=== PATIENT | female | born 1940 | race Caucasian/White ===

== ENCOUNTER 2016-08-01 17:17 | Inpatient (IN) | payer MEDICARE ==
[~2016-08-01] VITALS: Ht 157.5 cm; Wt 76.6 kg
--- NOTE | ~2016-08-01 | HEMODYNAMI ---
PATIENT:ADRIANA MARCELINO MEDICAL RECORD: [id number] : 38 LOCATION:[facility] [address] [facility]# [id number] ADMISSION DATE: 08/02/16 Generatedon:08/03/201615:30 Patient name: ADRIANA MARCELINO Patient #: [id number] : 1940 Date of study: 08/03/2016 Page: Of Hemodynamic Procedure Report Patient Data Patient Demographics Procedure consent was obtained First Name: ADRIANA Gender: Female Last Name: CHARI : 1940 [facility] Initial: J Age: 76 year(s) Patient #: [id number] Race: SSN: [id number] Additional ID: [id number] Contact details [address]: [address] [place] [address] [address] State: [place] City: [place] Zip code: [address] Past Medical History Allergies Allergen Reaction Date Comments Reported Other allergy 07/31/2015 NSAIDS, Sulfa, Celebrex, Versed Other allergy 08/03/2016 Furosemide, NSAIDS, Sulfa, Celebrex, Versed Admission Admission Data Admission Date: 08/02/2016 Admission Time: 14:24 Arrival Date: 08/03/2016 Arrival Time: 14:24 Admit Source: Other Insurance Payor: Medicare Room #: D.2121 Weight (lbs.): 176.37 Weight (kg.): 80 Lab Results Lab Result Date: 08/03/2016 Lab Result Time: 0:00 Biochemistry Name Units Result Min Max BUN mg/dl 32 --(----)-* 7 18 Creatinine mg/dl 2 --(----)-* 0.6 1.3 CBC Name Units Result Min Max Hemoglobin g/dl 8.5 *-(----)-- 13.5 17.5 Procedure Procedure Types Cath Procedure Diagnostic Procedure LHC Coronaries only Aortic Root Angiography PCI Procedure PTCA Initial Procedure Description Procedure Date Procedure Date: 08/03/2016 Procedure Start Time: 14:18 Procedure End Time: 15:08 Procedure Staff Name Function Tejinder Hernandez RT Reinforcing Steel Placer Lady Capps RT Monitor Олег Long RT Scrub Adam Tabares MD Performing Physician Loretta Villa RN Nurse Indication Angina Procedure Data Cath Procedure Fluoroscopy Diagnostic fluoroscopy Total fluoroscopy Time: 17 time: 17 min min Diagnostic fluoroscopy Total fluoroscopy dose: dose: 2309 mGy 2309 mGy Contrast Material Contrast Material Type Amount (ml) Isovue 370 152 Entry Location Entry Primary Successful Side Size Upsize Upsize Entry Closure Succes sful Closure Location (Fr) 1 (Fr) 2 (Fr) Remarks Device Remarks Femoral Right 5 Fr 6 Fr Exoseal artery Short Estimated blood loss: 5 ml Diagnostic catheters Device Type Used For End Catheter Placement Cordis 5Fr JL 4.0 Left Coronary Catheter (MP) Angiography Cordis 5Fr 3DRC Catheter Right Coronary (MP) Angiography Cordis Infinity 5Fr AR Multi-vessel MOD Catheter Angiography Cordis 5Fr Pigtail Multi-vessel Catheter (MP) Angiography Procedure Complications No complications Procedure Medications Medication Administration Route Dosage Oxygen NC 2 l/min Heparin Flush Bag added to field 2 bags (1000units/500ml NS) Lidocaine 2% added to field 20 Fentanyl I.V. 50 mcg Fentanyl I.V. 50 mcg Heparin Bolus I.V. 8000 units Fentanyl I.V. 50 mcg Hemodynamics Rest HGB: 8.5 (g/dl) Heart Rate: 53 (bpm) Snapshots Pre Cath Intra NCS Post Cath Vital Signs Time Heart Resp SPO2 NIBP (mmHg) Rhythm Pain Sedation Rate (ipm) (%) Status Level (bpm) 13:41:15 51 15 97 Measuring 1 0 (11) 10(A) degree , No AV pain Block 13:41:46 52 16 97 152/67(126) 1 0 (11) 10(A) degree , No AV pain Block 13:46:45 51 16 99 Measuring 1 0 (11) 10(A) degree , No AV pain Block 13:46:57 51 15 98 153/63(120) 1 0 (11) 10(A) degree , No AV pain Block 13:51:19 51 14 96 148/70(120) 1 0 (11) 10(A) degree , No AV pain Block 13:55:46 51 16 95 129/57(118) 1 0 (11) 10(A) degree , No AV pain Block 14:00:02 51 14 95 137/65(89) 1 0 (11) 10(A) degree , No AV pain Block 14:05:01 51 14 96 Measuring 1 0 (11) 10(A) degree , No AV pain Block 14:05:17 51 14 95 140/59(107) 1 0 (11) 10(A) degree , No AV pain Block 14:09:25 50 16 96 123/66(113) 1 0 (11) 10(A) degree , No AV pain Block 14:13:43 51 20 95 138/59(112) 1 0 (11) 10(A) degree , No AV pain Block 14:18:05 52 19 96 116/61(101) 1 0 (11) 10(A) degree , No AV pain Block 14:22:15 51 21 95 125/58(112) 1 0 (11) 9(A) degree , No AV pain Block 14:27:14 51 16 95 Measuring 1 0 (11) 9(A) degree , No AV pain Block 14:27:37 51 16 95 131/68(110) 1 0 (11) 9(A) degree , No AV pain Block 14:31:42 51 16 95 117/61(100) 1 0 (11) 9(A) degree , No AV pain Block 14:35:54 51 16 97 126/65(113) 1 0 (11) 9(A) degree , No AV pain Block 14:40:10 51 16 94 134/61(99) 1 0 (11) 9(A) degree , No AV pain Block 14:44:32 51 15 97 120/53(115) 1 0 (11) 9(A) degree , No AV pain Block 14:49:31 52 13 96 Measuring 1 0 (11) 9(A) degree , No AV pain Block 14:50:06 52 14 96 131/41(117) 1 0 (11) 9(A) degree , No AV pain Block 14:54:24 51 15 96 136/57(109) 1 0 (11) 9(A) degree , No AV pain Block 14:59:23 52 15 96 Measuring 1 0 (11) 9(A) degree , No AV pain Block 14:59:40 51 15 95 148/59(103) 1 0 (11) 9(A) degree , No AV pain Block 15:03:58 52 16 96 145/61(107) 1 0 (11) 9(A) degree , No AV pain Block 15:08:04 52 16 96 152/59(111) 1 0 (11) 9(A) degree , No AV pain Block Medications Time Medication Route Dose Verified Delivered Reason Notes Effectiveness by by 13:32:50 Oxygen NC 2 Adam Loretta Per l/min Sergey Villa RN physician 13:32:59 Heparin Flush added 2 Adam Adam used for Bag to bags Sergey Tabares MD procedure (1000units/500ml field NS) 13:33:06 Lidocaine 2% added 20ml Adam Adam used for to vial Sergey Tabares MD procedure field 14:14:27 Fentanyl I.V. 50 Adam Loretta for sedation mcg Sergey Villa RN 14:18:39 Fentanyl I.V. 50 Adam Loretta for sedation mcg Sergey Villa RN 14:38:58 Heparin Bolus I.V. 8000 Adam Loretta for dose units Sergey Villa RN antiplatelet verified therapy wtith dr tabares 14:50:29 Fentanyl I.V. 50 Adam Loretta for sedation mcg Sergey Villa RN Procedure Log Time Note 13:10:26 Tejinder Hernandez RT(R) sent for patient. Start room use. 13:23:44 Informed consent obtained and on chart 13:25:47 Arrival Date: 08/03/2016 2:24:00 PM 13:26:02 Admit Source: Other 13:26:09 Insurance Payor : Medicare 13:28:53 Lab Result : Hemoglobin 8.5 g/dl 13:28:53 Lab Result : Creatinine 2 mg/dl 13:28:53 Lab Result : BUN 32 mg/dl 13:29:47 Diagnostic Cath Status : Elective 13:30:15 Indication : Angina 13:30:33 Time tracking: Regular hours 13:30:37 Plan of Care:Hemodynamics will remain stable., Cardiac rhythm will remain stable., Comfort level will be maintained., Respiratory function will remain adequate., Patient/ family verbilizes understanding of procedure., Procedure tolerated without complication., Recovers from procedure without complications.. 13:30:48 Warm blankets applied, and roxanne hugger turned on for patient comfort. 13:30:48 Patient received from [facility] to [facility] 1 Alert and oriented. Tansferred to table in Supine position. 13:30:49 Correct patient and procedure confirmed by team. 13:30:50 ECG and BP/O2 sat monitors applied to patient. 13:32:50 Oxygen 2 l/min NC was given by Loretta Villa RN; Per physician; 13:32:59 Heparin Flush Bag (1000units/500ml NS) 2 bags added to field was given by Adam Tabares MD; used for procedure; 13:33:06 Lidocaine 2% 20ml vial added to field was given by Adam Tabares MD; used for procedure; 13:39:25 Vital chart was started 13:39:39 Baseline sample Acquired. 13:39:42 Full Disclosure recording started 13:45:45 H&P Date Dictated: 08/03/2016 Within 30 days and on chart., H&P Addendum completed by physician on day of procedure. (MUST COMPLETE FOR ALL OUTPATIENTS). 13:45:47 Pre-op teaching completed and patient verbalized understanding. 13:45:47 Pre-procedure instructions explained to patient. 13:45:48 Family in waiting room. 13:45:50 Patient NPO since Midnight. 13:47:39 Patient allergic to Other allergyFurosemide, NSAIDS, Sulfa, Celebrex, Versed 13:50:06 Is the patient allergic to Iodine/contrast media? No. 13:50:07 Was the patient premedicated? No 13:51:52 Is patient on blood thinner?Yes 13:51:55 ACC The patient was administered the following blood thiners within the last 24 hours: ACCPlavix 13:52:21 Patient diabetic? Yes. 13:52:29 If diabetic: On Metformin? No 13:52:36 Previous problem with sedation/anesthesia? No ? 13:52:41 Snore? Yes 13:52:50 Sleep apnea? No 13:53:08 Opens mouth fully? Yes 13:53:08 Deviated septum? No 13:53:09 Sticks out tongue? Yes 13:53:25 Airway obstruction? No ? 13:53:30 Dentures? Yes in tight 13:53:49 Pre procedure: right dorsailis pedis pulse 1+ Palpable, but thready & weak; easily obliterated 13:53:55 Patient pain scale 0/10 ?. 13:54:07 IV patent on arrival in right forearm with 0.9% NaCl at [facility]. 13:54:22 Lab results completed and on chart. 13:54:35 Right groin area was prepped with chlora-prep and draped in sterile fashion 13:54:37 Alarms reviewed by R. N. 13:54:38 Sharps counted by scrub and verified by R.N. 13:55:18 Use device set Femoral Dx 13:55:19 Bag Decanter opened to sterile field. 13:55:19 Acist Syringe opened to sterile field. 13:55:20 Cardinal Cath Pack opened to sterile field. 13:55:21 [place] 260cm J .035 wire opened to sterile field. 13:55:21 Terumo 5Fr [place] Sheath opened to sterile field. 13:55:23 Acist Manifold opened to sterile field. 13:55:23 Acist Hand Control opened to sterile field. 13:55:24 Cordis Infinity 5Fr Multipack catheter opened to sterile field. 13:55:37 Tegaderm 4 x 4 opened to sterile field. 13:55:45 Zero performed for pressure channel P1 14:14:02 --------ALL STOP TIME OUT------ 14:14:02 Physician arrived 14:14:03 Final Timeout: patient, procedure, and site verified with staff and physician. All members of the team are in agreement. 14:14:07 Right groin site verified by team. 14:14:11 Physical assessment completed. ASA score P 2 - A patient with mild systemic disease as per Adam Tabares MD. 14:14:14 Sedation plan: IV Moderate Sedation Versed, Fentanyl 14:14:27 Fentanyl 50 mcg I.V. was given by Loretta Villa RN; for sedation; 14:18:25 Procedure started. 14:18:29 Local anesthetic to right femoral artery with Lidocaine 2% by Adam Tabares MD.INITIAL ACCESS ONLY 14:18:38 A 5 Fr sheath was inserted into the Right Femoral artery 14:18:39 Fentanyl 50 mcg I.V. was given by Loretta Villa RN; for sedation; 14:21:00 A Cordis 5Fr JL 4.0 Catheter () was advanced over the wire and used for Left Coronary Angiography. 14:21:26 LCA angiography performed. 14:21:30 Injector settings: Ml/sec: 3, Volume: 6, 14:24:11 Catheter removed. 14:24:17 A Cordis 5Fr 3DRC Catheter (MP) was advanced over the wire and used for Right Coronary Angiography. 14:27:01 Catheter removed. 14:27:23 A Cordis Infinity 5Fr AR MOD Catheter was advanced over the wire and used for Multi-vessel Angiography. 14:28:51 RCA angiography performed. 14:28:58 Injector settings: Ml/sec: 3, Volume: 6, 14:29:01 Catheter removed. 14:29:07 A Cordis 5Fr Pigtail Catheter (MP) was advanced over the wire and used for Multi-vessel Angiography. 14:29:13 Aortic Root visualized 14:29:36 Injector settings: Ml/sec: 10, Volume: 20, 14:33:47 Catheter removed. 14:33:48 Proceeding to intervention. 14:37:33 Terumo 6Fr [place] Sheath opened to sterile field. 14:37:34 Xsigo BasixCompak Inflation Kit opened to sterile field. 14:37:34 Cordis 6FR XBLAD 3.5 guide catheter opened to sterile field. 14:37:34 Corral BMW [place] 2 J-tip 300cm 0.014 guide wir opened to sterile field. 14:38:34 Sheath upsized to a 6 Fr Short. 14:38:42 6 Fr xblad 3.5\ guide catheter was inserted over the wire 14:38:58 Heparin Bolus 8000 units I.V. was given by Loretta Villa RN; for antiplatelet therapy; dose verified wtarabella tabares 14:39:16 bmw wire advanced. 14:44:30 [place] Sci Luge Straight 300cm 0.014 guide wire opened to sterile field. 14:44:34 Wire removed. 14:45:24 luge wire advanced. 14:50:29 Fentanyl 50 mcg I.V. was given by Loretta Villa RN; for sedation; 15:01:02 The Medtronic Integrity 2.5 X 18 stent was advanced then removed because of failure to cross lesion 15:01:50 Wire redirected to diagonal. 15:03:21 Inflation number: 1 A [place] Sci Crane 2.0 X 20 balloon was prepped and advanced across the 1st Diag, then inflated to 14 NIVIA for 0:10 (min:sec). 15:03:38 Inflation number: 2 The [place] Sci Crane 2.0 X 20 balloon was reinflated across the 1st Diag, to 16 NIVIA for 0:10 (min:sec). 15:04:09 Inflation number: 3 The [place] Sci Crane 2.0 X 20 balloon was reinflated across the 1st Diag, to 17 NIVIA for 0:10 (min:sec). 15:04:41 Balloon removed over the wire. 15:04:42 Wire removed. 15:04:43 Guide catheter removed. 15:05:14 Cordis 6Fr Exoseal opened to sterile field. 15:06:01 Sheath removed intact; hemostasis achieved with Exoseal to the Right Femoral artery. 15:06:04 Procedure ended.(Physican Out) 15:06:15 Fluoroscopy time 17.00 minutes. 15:06:19 Fluoroscopy dose: 2309 mGy 15:06:19 Flurop Dose total: 2309 15:06:23 Contrast amount:Isovue 370 152ml. 15:06:25 Sharps counted by scrub and verified by R.N. 15:06:26 Insertion/operative site no bleeding no hematoma. 15:06:29 Post-op/insertion site Right Femoral artery dressed using a 4 x 4 and Tegaderm. 15:06:32 Post right femoral artery:stable 15:06:44 Post Procedure Pulses reassessed and unchanged 15:06:48 Post procedure rhythm: unchanged. 15:06:51 Estimated blood loss: 5 ml 15:06:52 Post procedure instruction explained to patient.Patient verbalizes understanding. 15:06:53 Patient needs reinforcement of post procedure teaching. 15:07:22 Procedure type changed to Cath procedure, Diagnostic procedure, LHC, Coronaries only, Aortic Root Angiography, PCI procedure, PTCA Initial 15:07:23 Procedure and supply charges have been captured, reviewed, submitted and are correct. 15:07:27 Procedure Complication : No complications 15:07:29 Vital chart was stopped 15:07:30 See physician's report for complete and final results. 15:07:48 Report given to [facility]. 15:07:51 Patient transfered to [facility] with Stretcher. 15:08: Full Disclosure recording stopped 15:08:01 Procedure ended. 15:08:17 ACC-PCI Only Patient was given prescriptions, or instructed by Adam Tabares MD to start/continue the following medications upon discharge: Plavix 15:08:19 End room use (Document Last) 15:09:25 Patient Weight : 80 kg Intervention Summary Intervention Notes Time ActionType Lesion and Equipment Action# Pressure Duration Attributes Used 15:01:02 Discard Medtronic Stent Integrity 2.5 X 18 stent 15:03:21 Inflate 1st Diag [place] 1 14 00:10 balloon Sci Crane 2.0 X 20 balloon 15:03:38 Reinflate 1st Diag [place] 2 16 00:10 balloon Sci Crane 2.0 X 20 balloon 15:04:09 Reinflate 1st Diag [place] 3 17 00:10 balloon Sci Crane 2.0 X 20 balloon Device Usage Item Name Manufacture Quantity Catalog Number Hospital Part Current Mini mal Lot# / Charge Number Stock Stock Serial# Code Acist Acist 1 [id number] 804047 973897 20 Syringe Medical Systems Inc Bag Microtek 1 2002S 310022 55019 855907 5 Decanter Medical Inc. Cardinal Cardinal 1 [id number] 736216 73754 230851 5 Cath Pack Health Terumo 5Fr Terumo 1 [id number] 279639 072432 476603 [address] [place] 1 933882 801656 127898 358029 30 260cm J .035 wire Acist Hand Acist 1 20431 541883 262250 662684 5 Bloomerang Medical Systems Inc Acist Acist 1 86754 812565 160351 130237 5 Green Is Good [employer] Systems Inc Cordis Cardinal 1 [id number] 719615 53017 741687 30 Infinity Health 5Fr Multipack catheter Tegaderm 4 3M 1 1626W 654190 641795 883711 5 x 4 Cordis 5Fr Cardinal 1 928237 5 JL 4.0 Health Catheter (MP) Cordis 5Fr Cardinal 1 033379 5 3DRC Health Catheter (MP) Cordis Cardinal 1 [id number] 791841 327834 096443 15 Infinity Health 5Fr AR MOD Catheter Cordis 5Fr Cardinal 1 468818 5 Pigtail Health Catheter (MP) Terumo 6Fr Terumo 1 [id number] 893288 129743 091290 40 [place] Sheath Corral BMW Corral 1 [id number] 759437 956808 737882 5 [place] 2 Vascular J-tip 300cm 0.014 guide wir Cordis 6FR Cardinal 1 [id number] 717496 243805 138650 10 XBLAD 3.5 Health guide catheter [facility] Merit 1 [id number] 258236 289730 445282 15 BasixCompak Medical Inflation Kit [place] Sci [place] 1 [id number] 553998 407255 108700 5 [id number] Luge Scientific Straight 300cm 0.014 guide wire Medtronic Medtronic 1 [id number] 484127 457200 625896 0 [id number] Integrity 2.5 X 18 stent [place] Sci [place] 1 [id number] 928090 752316 194379 1 [id number] Spyder Lynk Scientific 2.0 X 20 balloon Cordis 6Fr Cardinal 1 [id number] 652262 926344 853367 10 Fuelmaxx Inc Signature Audit [place] Stage Time Signature Unsigned Intra-Procedure 08/03/2016 Lady Capps RT(R) 3:14:05 PM RT(R) 08/03/2016 3:29:11 PM Intra-Procedure 08/03/2016 Lady Capps 3:30:37 PM RT(R) Signatures Monitor : Lady Capps RT Signature : Date : Time : [address] [place] [address]
[~2016-08-01 17:17] MED LIST: ACETAMINOPHEN500 M1 PO; ASPIRIN 81 MG E81 MG PO; AUGMENTIN 875-11 TAB PO; B-12 DOTS500 MCG PO; BENADRYL50 MG PO; CELEXA20 MG PO; CO Q-1030 MG PO; CORDARONE200 MG PO; COUMADIN5 MG PO; EFFIENT5 MG PO; EZFE 200200 MG PO; FOLIC ACID0.8 MG PO; FORTAMET1000 MG/BO PO; GABAPENTIN100 MG PO; GEMFIBROZIL600 MG PO; GLUCOPHAGE500 MG PO; HUMULIN 70100 UNIT/1 SQ; HYDROCODON-ACE1 EAC6 PO; LISINOPRIL5 MG PO; MAG-OX 400 MG400 MG PO; MELATONIN 3 MG1 TAB PO; MOBIC7.5 MG PO; MULTI-DAY VITAM1 TAB PO; MYSOLINE 50 MG50 MG PO; NITROQUICK0.4 MG SL; NORVASC2.5 MG PO; NOVOLOG MIX 70/10 ML SQ; OS-CAL 500+D TA1 TAB PO; PLAVIX75 MG PO; PRAVACHOL40 MG PO; PRILOSEC20 MG PO; RESTORIL15 MG PO; SEIZURE; STOOL SOFTENER240 MG PO; TRANDATE100 MG PO; TUMS500 MG PO; ULTRAM50 MG PO; VITAMIN B COMPL1 TAB PO; VITAMIN C1000 MG PO; VITAMIN D31000 UNI2 PO; VITAMIN E1000 UNIT PO; VITAMIN E400 UNI2 PO
[2016-08-01 18:03] LABS: BASOPHILS 0.5 % (0.0-2.0); EOSINOPHILS 3.9 % (0-7); HEMATOCRIT 28.4 % (36.0-48.0); IMMATURE GRANULOCYTES 0.4 % (0-5); LYMPHOCYTES 18.8 % (15-50); MCH 30.1 pg (26.0-34.0); MCHC 31.7 g/dL (31.0-37.0); MEAN PLATELET VOLUME 11.4 fL (7.4-10.4); MONOCYTES 9.5 % (2-11); NEUTROPHILS 66.9 % (40-80); PLATELET COUNT 125 10x3/uL (130-400); RBC 2.99 10x6/uL (4.00-5.40); RDW 14.1 % (11.5-14.5); WBC 5.6 10x3/uL (4.8-10.8)
[2016-08-01 18:22] LABS: ALBUMIN 3.6 g/dL (3.4-5.0); ALKALINE PHOSPHATASE 96 U/L (46-116); ALT (SGPT) 27 U/L (10-68); BILIRUBIN - TOTAL 0.35 mg/dL (0.2-1.3); CALC OSMOLALITY 271 mosm/kg (275-300); CALCIUM 8.9 mg/dL (8.5-10.1); CARBON DIOXIDE 29.9 mmol/L (21.0-32.0); CHLORIDE - SERUM 98 mmol/L (98-107); CREATININE - SERUM 1.9 mg/dL (0.6-1.3); GLUCOSE 98 mg/dL (74-106); POTASSIUM - SERUM 5.2 mmol/L (3.5-5.1); PROTEIN - SERUM 6.7 g/dL (6.4-8.2); SODIUM 133 mmol/L (136-145); UREA NITROGEN 28 mg/dL (7-18); eGFR NON AFRICAN AMERICAN 27 mL/min (90-120)
[2016-08-01 18:35] LABS: CHOL - HDL RATIO 1.9 ratio (2.3-4.1); CHOLESTEROL, TOTAL 122 mg/dL (0-200); CKMB 2.9 U/L (0.0-3.6); CREATINE KINASE 167 UL (21-215); HDL CHOLESTEROL 64 mg/dL (32-96); LDL CHOLESTEROL 44 mg/dL (0-100); LDL-HDL RATIO 0.7 ratio (1.5-3.5); TRIGLYCERIDE 71 mg/dL (30-200); TROPONIN-I < 0.017 ng/mL (0.000-0.060)
[2016-08-01 23:23] LABS: CREATINE KINASE 132 UL (21-215)
[2016-08-01 23:25] LABS: TROPONIN-I < 0.017 ng/mL (0.000-0.060)
[2016-08-02] VITALS (7 sets, daily range): BP systolic 100–203; BP diastolic 40–88
[2016-08-02] MEDS ORDERED: FERROUS SULFAT325 MG PO (04:24)
[2016-08-02] MEDS ORDERED: NORVASC2.5 MG PO (04:36)
[2016-08-02] MEDS ORDERED: NORMODYNE / TR100 MG PO (04:39)
[2016-08-02] MEDS ORDERED: BUMEX 1 MG TAB1 MG PO (04:41)
[2016-08-02] MEDS ORDERED: PLAVIX75 MG PO (04:42)
[2016-08-02] MEDS ORDERED: CALTRATE 600 M600 M1 PO (04:42)
[2016-08-02] MEDS ORDERED: ISOSORBIDE DINI20 MG PO (04:43)
[2016-08-02] MEDS ORDERED: BUPROPION XL150 MG PO (04:43)
[2016-08-02] MEDS ORDERED: ARICEPT5 MG PO (04:47)
[2016-08-02] MEDS ORDERED: MUCINEX D1 TAB.SR . PO (04:52)
[2016-08-02] MEDS ORDERED: VITAMIN C1000 MG PO (04:53)
[2016-08-02] MEDS ORDERED: DEXILANT60 MG PO (04:54)
[2016-08-02] MEDS ORDERED: MIRAPEX0.125 MG PO (04:54)
[2016-08-02 07:17] LABS: CKMB 1.7 U/L (0.0-3.6); CREATINE KINASE 106 UL (21-215); TROPONIN-I 0.028 ng/mL (0.000-0.060)
--- NOTE | 2016-08-02 09:50 | NUR ---
TELEMETRY SB. HR 47. RESP UL ON 02 2L NC. CALL LIGHT IN REACH. WILL CONT. PLAN OF CARE.
[2016-08-02 11:56] LABS: CKMB 1.9 U/L (0.0-3.6); CREATINE KINASE 104 UL (21-215); TROPONIN-I 0.018 ng/mL (0.000-0.060)
--- NOTE | 2016-08-02 12:26 | NUR ---
B/P CALLED TO DR. SALGADO. ORDERED TO START HOME MEDS AND WILL MONITOR.
--- NOTE | 2016-08-02 14:04 | NUR ---
C/O C/P NOR RELIEVED BY MORPHINE. NIRO SL GIVEN. B/P /. DR. SALGADO NOTIFIED. NEW ORDERS GIVEN.
--- NOTE | 2016-08-02 19:25 | NUR ---
RESUMED CARE OF PT, UP IN CHAIR RESPIRAITONS EVEN AND UNLABORED ON ROOM AIR. 50 SB ON TELEMETRY. ASSISSTED BACK TO BED. CALL LIGHT IN REACH. NO NEEDS VOICED AT THIS TIME. WILL CONTINUE TO MONITOR. SEE NURSE ASSESSMENT.
[2016-08-03 00:33] VITALS: BP 150/43
--- NOTE | 2016-08-03 02:35 | NUR ---
LYING IN BED WITH EYES CLOSED, CALL LIGHT IN REACH. WILL CONTINUE WITH PLAN OF CARE.
[2016-08-03 05:19] VITALS: BP 145/43
[2016-08-03 05:19] LABS: BASOPHILS 0.7 % (0.0-2.0); EOSINOPHILS 4.6 % (0-7); HEMOGLOBIN 8.5 g/dL (12-16); IMMATURE GRANULOCYTES 0.2 % (0-5); MCH 30.1 pg (26.0-34.0); MCHC 31.5 g/dL (31.0-37.0); MCV 95.7 fL (80.0-100.0); MEAN PLATELET VOLUME 12.5 fL (7.4-10.4); MONOCYTES 10.9 % (2-11); NEUTROPHILS 68.6 % (40-80); PLATELET COUNT 104 10x3/uL (130-400); RBC 2.82 10x6/uL (4.00-5.40); RDW 14.1 % (11.5-14.5)
[2016-08-03 05:20] LABS: WBC 4.1 10x3/uL (4.8-10.8)
[2016-08-03 05:26] LABS: ALKALINE PHOSPHATASE 87 U/L (46-116); ALT (SGPT) 22 U/L (10-68); BILIRUBIN - TOTAL 0.31 mg/dL (0.2-1.3); CALC OSMOLALITY 273 mosm/kg (275-300); CALCIUM 8.4 mg/dL (8.5-10.1); CARBON DIOXIDE 29.1 mmol/L (21.0-32.0); CHLORIDE - SERUM 97 mmol/L (98-107); CKMB 1.4 U/L (0.0-3.6); CREATINE KINASE 70 UL (21-215); GLUCOSE 113 mg/dL (74-106); POTASSIUM - SERUM 4.9 mmol/L (3.5-5.1); PROTEIN - SERUM 5.8 g/dL (6.4-8.2); SODIUM 133 mmol/L (136-145); TROPONIN-I 0.024 ng/mL (0.000-0.060); UREA NITROGEN 32 mg/dL (7-18); eGFR NON AFRICAN AMERICAN 26 mL/min (90-120)
--- NOTE | 2016-08-03 07:05 | NUR ---
NO CHANGES FROM PREVIOUS ASSESSMENT, CALL LIGHT IN REACH.
[2016-08-03 07:42] LABS: % SATURATION 15 % (15-55); IRON 30 ug/dl (35-150); TOTAL IRON BIND CAPACITY 192 ug/dl (260-445); UNSAT IRON BIND CAPACITY 162 ug/dl (150-375)
[2016-08-03 08:00] VITALS: BP 186/63
[2016-08-03 09:05] VITALS: BP 158/46
--- NOTE | 2016-08-03 10:24 | NUR ---
CONSENTS SIGNED FOR [facility].
--- NOTE | 2016-08-03 10:53 | NUR ---
IV RESTARTED TO RIGHT FA WITH 22 GAUGE CATH X 3 STICKS AND FLUSHED WITH NS. LINE IS PATENT.
[2016-08-03 11:59] VITALS: BP 134/42
[2016-08-03 12:57] VITALS: Ht 157.5 cm; Wt 76.6 kg
--- NOTE | 2016-08-03 15:38 | NUR ---
BACK FROM CLOTH SPREADER. VS WNL. RIGHT GROIN STABLE WITHOUT BLEEDING OR HEMATOMA NOTED. WILL MONITOR.
--- NOTE | 2016-08-03 19:03 | NUR ---
LAYING FLAT IN BED, AAOX3, SKIN WARM AND DRY, RESP UNLABORED, IV PATENT TO LEFT FOREARM, RIGHT GROIN CATH SITE DRY AND INTACT, NO DISTRESS NOTED
[2016-08-04] VITALS: BP 170/55
--- NOTE | 2016-08-04 02:10 | NUR ---
PT LAYING IN BED NO DISTRES OBSERVED CALL LIGHT IN REACH SRX2 BED LOW AND LOCKED. RESPERATIONS EVEN AND UNLABORED, PT READING 55 SB ON MONITORS WILL MONITOR
[2016-08-04 04:00] VITALS: BP 181/46
[2016-08-04 05:22] LABS: BASOPHILS 0.6 % (0.0-2.0); EOSINOPHILS 3.7 % (0-7); HEMATOCRIT 26.4 % (36.0-48.0); HEMOGLOBIN 8.4 g/dL (12-16); LYMPHOCYTES 18.5 % (15-50); MCH 30.3 pg (26.0-34.0); MCHC 31.8 g/dL (31.0-37.0); MCV 95.3 fL (80.0-100.0); MEAN PLATELET VOLUME 12.2 fL (7.4-10.4); MONOCYTES 11.4 % (2-11); NEUTROPHILS 65.8 % (40-80); PLATELET COUNT 85 10x3/uL (130-400); RBC 2.77 10x6/uL (4.00-5.40); WBC 3.5 10x3/uL (4.8-10.8)
--- NOTE | 2016-08-04 05:40 | NUR ---
RESTING QUIETLY IN BED, NO DISTRESS NOTED
[2016-08-04 05:57] LABS: ANION GAP 11.7 mmol/L (8-16); CALCIUM 8.5 mg/dL (8.5-10.1); CARBON DIOXIDE 30.9 mmol/L (21.0-32.0); POTASSIUM - SERUM 4.6 mmol/L (3.5-5.1)
[2016-08-04 07:36] LABS: PLATELET ESTIMATE DECREASED
[2016-08-04 08:00] VITALS: BP 165/67
[2016-08-04 09:12] LABS: FOLATE (FOLIC ACID) - SERUM >20.0 ng/mL (>3.0)
--- NOTE | 2016-08-04 09:35 | NUR ---
TELEMETRY SB. RESP UL ON 02 2L NC. CALL LIGHT IN REACH. WILL CONT. PLAN OF CARE.
--- NOTE | 2016-08-04 10:10 | NUR ---
1ST UNIT PRBC STARTED. VS WNL. LINE IS PATENT.
[2016-08-04 12:00] VITALS: BP 150/63
--- NOTE | 2016-08-04 13:00 | NUR ---
BLOOD INFUSION COMPLETED WITHOUT ADVERSE REACTIONS NBOTED.
[2016-08-04 16:00] VITALS: BP 154/58
[2016-08-04 19:00] VITALS: BP 176/69
--- NOTE | 2016-08-04 19:03 | NUR ---
SITTING UP IN BED, AAOX3, SKIN WARM AND DRY, RESP UNLABORED, IV PATENT TO LEFT FOREARM, MOOD PLEASANT, NO DISTRESS NOTED
[2016-08-05] VITALS (7 sets, daily range): BP systolic 113–212; BP diastolic 52–68
--- NOTE | 2016-08-05 06:06 | NUR ---
RESTING QUIETLY IN BED, NO DISTRESS NOTED
--- NOTE | 2016-08-05 07:12 | NUR ---
ASSESSMENT DONE. DENIES NEEDS.
[2016-08-05 07:21] LABS: BASOPHILS 0.7 % (0.0-2.0); EOSINOPHILS 3.5 % (0-7); HEMATOCRIT 31.4 % (36.0-48.0); IMMATURE GRANULOCYTES 0.2 % (0-5); LYMPHOCYTES 12.1 % (15-50); MCH 30.1 pg (26.0-34.0); MCHC 31.8 g/dL (31.0-37.0); MCV 94.6 fL (80.0-100.0); MEAN PLATELET VOLUME 12.2 fL (7.4-10.4); MONOCYTES 9.2 % (2-11); NEUTROPHILS 74.3 % (40-80); RBC 3.32 10x6/uL (4.00-5.40); RDW 14.8 % (11.5-14.5)
[2016-08-05 07:22] LABS: PLATELET COUNT 109 10x3/uL (130-400); WBC 5.7 10x3/uL (4.8-10.8)
[2016-08-05 07:23] LABS: CALCIUM 8.7 mg/dL (8.5-10.1); CARBON DIOXIDE 30.5 mmol/L (21.0-32.0); POTASSIUM - SERUM 4.5 mmol/L (3.5-5.1)
--- NOTE | 2016-08-05 09:57 | NUR ---
TRAFFIC TECHNICIAN AT ASSISTING WITH NEEDS. WILL CONT. PLAN OF CARE.
--- NOTE | 2016-08-05 11:52 | HP ---
PATIENT: ADRIANA MARCELINO MEDICAL RECORD: [id number] ACCOUNT: [id number] LOCATION:[address] : 38 ADMISSION DATE: 08/02/16 HISTORY AND PHYSICAL EXAMINATION Admission History and Physical HISTORY OF PRESENT ILLNESS: A 76-year-old female presented to the Emergency Room with a complaint of chest pain, was unrelieved with nitro and aspirin given en route. Also, given morphine with no relief. PAST MEDICAL HISTORY: Significant for heart disease with prior stent placement, clean catheterization a year ago in July, gallbladder surgery, back surgery, cataract surgery, hysterectomy, acromioplasty, rotator cuff repair, bilateral carpal tunnel, breast reduction, tummy tuck, right knee surgery, CABG, aortic valve repair, stents, atrial fib and chronic anemia. Also, has a history of uterine cancer, then had the subsequent hysterectomy. ALLERGIES: NSAIDS, SULFA, CELEBREX, VERSED. She is a long-term resident. REVIEW OF SYSTEMS: GENERAL: No acute change in weight or appetite reported. HEENT: No cephalgia, visual changes, tinnitus, epistaxis or dysphagia. CARDIOVASCULAR: Complained of chest pain, shooting to her back. PULMONARY: Denies hemoptysis, denies night sweats. GASTROINTESTINAL: Denies hematemesis, hematochezia or melena. GENITOURINARY: Denies dysuria, denies change in frequency. MUSCULOSKELETAL: No acute changes. ENDOCRINE: Denies polyuria, polydipsia, polyphagia. CURRENT MEDICATIONS: Listed as Aricept 5 mg q.h.s., Plavix 75 mg daily, Feosol 325 mg daily, amiodarone 200 mg daily, Norvasc 7.5 mg daily, Imdur 20 mg t.i.d., labetalol 50 mg b.i.d., sublingual nitroglycerin p.r.n., pravastatin 40 mg at bedtime, Wellbutrin 150 mg daily, Celexa 20 mg q.h.s., Neurontin 100 mg 3 p.o. t.i.d., Mobic 7.5 mg daily, Mirapex 0.75 t.i.d., primidone 50 mg at bedtime, tramadol 50 mg q.h.s., Bumex 1 mg daily, guaifenesin p.r.n. congestion, Omeprazole 20 mg daily. PHYSICAL EXAMINATION: VITAL SIGNS: Temp 97.6, blood pressure 209/70, heart rate 58, respirations 18, O2 sats 97% room air. GENERAL: Alert, oriented, mild distress secondary to above. HEENT: Head is normocephalic, atraumatic. Eyes: Pupils equal, round, reactive to light and accommodation. Extraocular muscles intact. Conjunctiva was not injected. Ears: Canals patent, TMs are intact. Nose: Nares patent without drainage. Throat: No erythema, no exudates. NECK: Supple. No lymphadenopathy, no JVD. HEART: Regular rate and rhythm. No S3, S4, no rub. LUNGS: Clear to auscultation bilaterally. Breathing is nonlabored. ABDOMEN: Soft, nontender, bowel sounds positive. EXTREMITIES: Present times 4, no edema. NEUROLOGIC: No focal deficits appreciated. HISTORY AND PHYSICAL [id number] ADRIANA MARCELINO DIAGNOSTIC DATA: Chest x-ray: No infiltrates nor effusion, no acute cardiopulmonary process. EKG, sinus bradycardia with a rate of 59, possible lateral infarct, age undetermined, left axis deviation, abnormal EKG. ASSESSMENT AND PLAN: 1. Chest pain with no improvement with nitrites or morphine. Cardiology consulted, I discussed case with Dr. Rincon. We will monitor the patient. Meds restarted and also clonidine. Initial cardiac enzyme is negative. We will cycle as discussed with Dr. Rincon. 2. Hypertensive crisis. Meds restarted, clonidine added. 3. Anemia of chronic disease. Present CBC: White count 5.6, hemoglobin 9, hematocrit 28.4, platelets 125, we will monitor. 4. Chronic kidney disease. Present BUN is 28, creatinine 1.9. Meds adjusted. We will monitor. The patient is admitted on telemetry. TRANSINT:[id number] Voice Confirmation ID: [id number] DOCUMENT ID: [id number] DIANE ZHANG DO at 1152 CC: [id number] DICTATION DATE: 08/02/161411 RESIDENTIAL SUPPORT SPECIALIST: 08/02/16 [address] [place] [address]
--- NOTE | 2016-08-05 19:03 | NUR ---
SITTING UP IN BED, AAOX3, SKIN WARM AND DRY, RESP UNLABORED, IV PATENT, NO DISTRESS NOTED
[2016-08-06] VITALS: BP 187/61
[2016-08-06 04:00] VITALS: BP 107/64
--- NOTE | 2016-08-06 04:26 | NUR ---
DINKEY LOCOMOTIVE OPERATOR AT BEDSIDE TO OBTAIN VITALS, CALL LIGHT IN REACH. WILL CONTINUE WITH PLAN OF CARE.
[2016-08-06] MEDS ORDERED: HYDRALAZINE HCL50 MG PO (07:00)
--- NOTE | 2016-08-06 07:15 | NUR ---
ASSESSMENT COMPLETED. DRSG TO RIGHT GROIN DRY AND INTACT. TELEMERTY SHOWS SR. LEFT FA SL. ALERT AND ORIENTED. SR UP WITH CALL LIGHT IN REACH. WILL MONITOR
--- NOTE | 2016-08-06 07:30 | NUR ---
RESTING QUIETLY NAD NOTED
[2016-08-06 08:07] VITALS: BP 136/65; BP 183/65
--- NOTE | 2016-08-06 08:54 | NUR ---
Patient Name: ADRIANA MARCELINO Admission Status: ER Accout number: [id number] Admission Date: 08-02-2016 : 1940 Admission Diagnosis:CHEST PAIN, UNSPECIFIED Attending: OSCAR Current LOS: 4 Anticipated DC Date: 08-06-2016 Planned Disposition: Assisted Living--[facility] Primary Insurance: MEDICARE A & B Is the patient Alert and Oriented? Yes * How many steps to enter\exit or inside your home? NONE * PCP DR DILLON * [facility] * Preadmission Environment Assisted Living * Facility Name [facility] - FULL NURSING ASSISTANCE * ADLs Partial Dependent * Partial ADLs (Assistance needed) Ambulation Bathing Medication Management * Equipment Other Rolling Walker/ROLLATOR Shower Chair * Other Equipment GRAB BARS IN SHOWER, HAND HELD SHOWER NOZEL * List name and contact numbers for known caregivers / representatives who currently or will assist patient after discharge: IJEOMA MARCELINO, SPOUSE, * Community resources currently utilized Assisted Living * Please name any agencies selected above. PT HAS USED [facility] IN THE PAST AGREED TO DC FOLLOW UP PHONE CALL * Additional services required to return to the preadmission environment? No * Can the patient safely return to the preadmission environment? Yes * Has this patient been hospitalized within the prior 30 days at any hospital? No Discharge Planning Comments: CM MET WITH PATIENT TO ASSESS DC PLAN/NEEDS. PT STATED SHE LIVES AT [facility]. SHE STATED [facility] PROVIDES ALL HER MEALS AND THAT SHE EATS IN THE DINING ROOM. SHE STATED THEY MANAGE ALL OF HER MEDICATIONS AND ASSIST HER WITH BATHING AND LIGHT HOUSEWORK. SHE STATED SHE AMBULATES WITH THE ASSISTANCE OF HER ROLLATOR. SHE DOES NOT DRIVE AND USES [facility] FOR [facility]. SHE STATED SHE HAS USED [facility] IN THE PAST, BUT IS NOT SURE IF SHE WILL NEED HH AT [place]. CM DISCUSSED BENEFIT OF SERVICES AND PT AGREED TO A FOLLOW-UP DC CALL FROM [facility] AGENCY. CM PLACED CALL TO [facility] AND SPOKE TO DEIDRA MAHONEY WHO CARES FOR PATIENT. SHE STATED THAT [facility] WILL BE ABLE TO PROVIDE VAN TRANSPORTATION TODAY AT 10:00 AM. PATIENT STATED SHE HAS ALL NEEDED DME EQUIPMENT AND THAT IF SHE NEEDED ANYTHING ELSE ONCE SHE GOT HOME THAT [facility] COULD ASSIST HER IN GETTING WHATEVER SHE NEEDS. DISCHARGE IMM PRESENTED TO AND EXPLAINED TO PT. PT VERBALIZED UNDERSTANDING AND SIGNED IMM. SIGNED IMM PLACED IN PT'S CHART. NURSE TO CALL REPORT TO DEIDRA MAHONEY AT [facility] AT [phone]. [facility] VAN TO ARRIVE AT 10AM. CM WILL FOLLLOW AND ASSIST WITH DC NEEDS THEY ARISE. Escrow Manager: Sarah Scott RN
--- NOTE | 2016-08-06 10:27 | NUR ---
PT DISCHARGED. IV DC D WITH TIP INTACT. INSTRUCTIOS GIVEN TO PT AND SENT WITH HER. AWAITING VAN
--- NOTE | 2016-08-06 11:32 | NUR ---
TO PRIVATE CAR PER WHEELCHAIR.
--- NOTE | 2016-08-10 15:45 | OP ---
PATIENT NAME: ADRIANA MARCELINO MEDICAL RECORD: [id number] :[birth year] LOCATION:D. D.2121 ADMISSION DATE:08/02/16 SURGEON: DAWIT SALGADO M.D. DATE OF OPERATION: 08/03/2016 REFERRING PHYSICIAN: Miguel Richter MD PROCEDURES PERFORMED: 1. Selective coronary angiography. 2. Aortic root injection. 3. PTCA of the diagonal branch. INDICATION: This 76-year-old woman presents with symptoms of accelerating angina. EQUIPMENT USED: Diagnostic 5-Kyrgyz JL4, Jerry right, pigtail catheter. INTERVENTION: A 6-Kyrgyz XB LAD guide, BMW guide wire, 2.0 x 20 mm Jim Hogg balloon. TECHNIQUE: A 5-Kyrgyz sheath was inserted in retrograde fashion in the right common femoral artery. Next, selective coronary angiography was performed in standard 5-Kyrgyz JL4 and Jerry right. Aortic root injection performed using pigtail catheter. CORONARY ANATOMY: 1. Left main: Left main trunk is large in caliber. It gives rise to the LAD and circumflex. There is no obstruction. 2. LAD: This is a large caliber vessel extending to the apex. The ostium has been stented. There appears to be an 80% in-stent restenosis. The first diagonal branch has a long 99% in-stent restenosis as well. 3. Circumflex: This vessel is moderate in caliber. It has ____ irregularities throughout its course. 4. Right coronary artery: This vessel is large in caliber and dominant. It has ____ irregularities, but nothing worse than 20%. 5. Aortic root: The ascending aorta is normal in size. There is a prosthetic valve in the aortic position. There is trivial insufficiency seen. DESCRIPTION OF INTERVENTION: A 6-Kyrgyz sheath was inserted in retrograde fashion in the right common femoral artery. Next, a 6-Kyrgyz XB LAD guide was advanced and engaged the left main coronary artery. A 100 units per kilogram of heparin was infused. Initially, attempts were made to wire the LAD. Because of extreme angulation, the wire kept going to the diagonal branch. At this point, a 2.0 x 20 mm Jim Hogg balloon was advanced into the diagonal branch. A long inflation was performed along its entire length of stented vessel which was restenotic. Injections revealed a less than 10% residual stenosis with brisk flow to the diagonal branch. At this point, the wire and guide were removed. IMPRESSION: Successful percutaneous transluminal coronary angioplasty of the diagonal branch for in-stent restenosis. PLAN: Because of her elevated creatinine, we will likely have to stage her and bring her back in the next 48 hours to address her LAD. TRANSINT:[id number] Voice Confirmation ID: [id number] DOCUMENT ID: [id number] OPERATIVE REPORT [id number] ADRIANA MARCELINO TIMOTHY E M.D. at 1545 CC: [id number] DICTATION DATE: 08/03/16 1511 NON LINEAR EDITOR: 08/03/16 1928 DIS IN 08/06/16 [facility] [address] [place] [address]
== END 2016-08-06 11:00 | disposition home or self-care (01) | DRG 251 ==
LOC: D.ER 17:17 → D.M2 20:07 → OBSVTIME 20:07 → D.M2 08-02 14:24
PROVIDERS: Emergency Medicine; Family Medicine; Internal Medicine Cardiovascular Disease; ADMIT Family Medicine
PROC: B215YZZ Fluoroscopy of Left Heart using Other Contrast (ICD-10-PCS; 2016-08-03)
PROC: 02703ZZ Dilation of Coronary Artery, One Artery, Percutaneous Approach (ICD-10-PCS; principal; 2016-08-03 11:00)
PROC: 4A023N7 Measurement of Cardiac Sampling and Pressure, Left Heart, Percutaneous Approach (ICD-10-PCS; 2016-08-03 11:00)
PROC: B211YZZ Fluoroscopy of Multiple Coronary Arteries using Other Contrast (ICD-10-PCS; 2016-08-03 11:00)
DX: T82.855A Stenosis of coronary artery stent, initial encounter (principal); I16.9 Hypertensive crisis, unspecified; Y71.8 Miscellaneous cardiovascular devices associated with adverse incidents, not elsewhere classified; I25.10 Atherosclerotic heart disease of native coronary artery without angina pectoris; I48.91 Unspecified atrial fibrillation; I12.9 Hypertensive chronic kidney disease with stage 1 through stage 4 chronic kidney disease, or unspecified chronic kidney disease; N18.9 Chronic kidney disease, unspecified

== ENCOUNTER 2016-08-11 20:41 | Outpatient (CLI) | payer MEDICARE ==
[~2016-08-11] VITALS: Ht 154.9 cm; Wt 63.6 kg
--- NOTE | ~2016-08-11 | HEMODYNAMI ---
PATIENT:ADRIANA MARCELINO MEDICAL RECORD: [id number] : [birth year] LOCATION:[facility] [address] [facility] [id number] ADMISSION DATE: 08/11/16 Generatedon:08/12/20169:59 Patient name: ADRIANA MARCELINO Patient #: [id number] : 1940 Date of study: 08/12/2016 Page: Of Hemodynamic Procedure Report Patient Data Patient Demographics Procedure consent was obtained First Name: ADRIANA Gender: Female Last Name: CHARI : 1940 [facility] Initial: J Age: 76 year(s) Patient #: [id number] Race: SSN: [id number] Additional ID: [id number] Contact details [address]: [address] [place] [address] [employer] [address] State: [place] City: [place] Zip code: [address] Past Medical History Allergies Allergen Reaction Date Comments Reported Other allergy 07/31/2015 NSAIDS, Sulfa, Celebrex, Versed Other allergy 08/03/2016 Furosemide, NSAIDS, Sulfa, Celebrex, Versed Admission Admission Data Admission Date: 08/11/2016 Admission Time: 20:41 Admit Source: Emergency department Room #: D.2117 Height (in.): 61 BSA: 1.63 (m2) Height (cm.): 154.94 BMI: 26.66 (kg/m2) Weight (lbs.): 141.1 Weight (kg.): 64 Procedure Procedure Types Cath Procedure PCI Procedure Coronary Stent Initial Procedure Description Procedure Date Procedure Date: 08/12/2016 Procedure Start Time: 9:32 Procedure End Time: 9:56 Procedure Staff Name Function Anupam King MD Performing Physician Pino Pedraza RN Nurse Tejinder Hernandez RT Monitor Graham Salmeron RT Scrub Shoaib Thomason RN Sales Representative Uniforms Ana Montanez RT Monitor Procedure Data Cath Procedure Fluoroscopy Diagnostic fluoroscopy Total fluoroscopy Time: 7.8 time: 7.8 min min Diagnostic fluoroscopy Total fluoroscopy dose: 978 dose: 978 mGy mGy Contrast Material Contrast Material Type Amount (ml) Isovue 300 46 Entry Location Entry Primary Successful Side Size Upsize Upsize Entry Closure Succes sful Closure Location (Fr) 1 (Fr) 2 (Fr) Remarks Device Remarks Femoral Right 6 Fr Vascade artery Short Closure System Estimated blood loss: 10 ml Procedure Complications No complications Procedure Medications Medication Administration Route Dosage Oxygen NC 2 l/min Lidocaine 2% added to field 20 Heparin Flush Bag added to field 2 bags (1000units/500ml NS) 0.9% NaCl I.V. 100 ml/hr Fentanyl I.V. 50 mcg Fentanyl I.V. 50 mcg Heparin Bolus I.V. 4000 units Fentanyl I.V. 50 mcg Fentanyl I.V. 50 mcg Plavix P.O. 75 mg Hemodynamics Rest BSA: 1.63 (m2) O2 Consumption: Estimated: 138.72 (ml/min) O2 Consumption indexed : Estimated:85.1 (ml/min/m) Heart Rate: 56 (bpm) Pressure Samples Time Site Value (mmHg) Purpose Heart Use Rate(bpm) 9:34 AO 170/56(91) Snapshot 46 Snapshots Pre Cath Intra NCS Post Cath Vital Signs Time Heart Resp SPO2 etCO2 [id number] NIBP (mmHg) Rhythm Pain Sedation Rate (ipm) (%) (mmHg) (mmHg) Status Level (bpm) 9:20:50 56 19 99 0 0 192/67(153) NSR 0 (11) 10(A) , No pain 9:25:26 55 17 98 0 0 170/62(138) NSR 0 (11) 10(A) , No pain 9:31:14 55 16 97 0 0 172/55(121) NSR 0 (11) 10(A) , No pain 9:35:47 55 15 94 0 0 166/62(138) NSR 0 (11) 9(A) , No pain 9:41:08 56 16 96 0 0 141/62(120) NSR 0 (11) 9(A) , No pain 9:46:07 55 15 99 0 0 Measuring NSR 0 (11) 9(A) , No pain 9:46:21 55 16 99 0 0 161/54(119) NSR 0 (11) 9(A) , No pain 9:51:21 56 15 98 0 0 Measuring NSR 0 (11) 9(A) , No pain 9:51:43 46 15 98 0 0 158/53(103) NSR 0 (11) 9(A) , No pain 9:56:13 55 15 98 0 0 148/59(132) NSR 0 (11) 10(A) , No pain Medications Time Medication Route Dose Verified Delivered Reason Notes Effectiveness by by 9:24:04 Oxygen NC 2 Anupam Buffie used for l/min Fernando Pedraza RN procedure 9:24:12 Lidocaine 2% added 20ml Anupam Anupam for local to vial Fernando King MD anesthetic field 9:24:19 Heparin Flush added 2 Anupam Anupam used for Bag to bags Fernando King MD procedure (1000units/500ml field NS) 9:24:28 0.9% NaCl I.V. 100 Anupam Buffie Per physician ml/hr Fernando Pedraza RN 9:30:44 Fentanyl I.V. 50 Anupam Buffie for sedation mcg Fernando Pedraza RN 9:33:49 Fentanyl I.V. 50 Anupam Buffie for sedation mcg Fernando Pedraza RN 9:34:44 Heparin Bolus I.V. 4000 Anupam Carpioie for verifie d units Fernando Pedraza RN anticoagulation with dr king 9:37:42 Fentanyl I.V. 50 Anupam Buffie for sedation mcg Fernando Pedraza RN 9:45:56 Fentanyl I.V. 50 Anupam Carpioie for sedation mcg Fernando Pedraza RN 9:58:17 Plavix P.O. 75 mg Anupam Pringle for Fernando Pedraza RN antiplatelet therapy Procedure Log Time Note 8:55:20 Shoaib Thomason RN sent for patient. Start room use. 9:04:39 Admit Source: Emergency department 9:05:28 Time tracking: Regular hours 9:05:34 Plan of Care:Hemodynamics will remain stable., Cardiac rhythm will remain stable., Comfort level will be maintained., Respiratory function will remain adequate., Patient/ family verbilizes understanding of procedure., Procedure tolerated without complication., Recovers from procedure without complications.. 9:08:18 Patient received from PCU to CCL 2 Alert and oriented. Tansferred to table in Supine position. 9:08:19 Warm blankets applied, and roxanne hugger turned on for patient comfort. 9:08:20 Correct patient and procedure confirmed by team. 9:08:21 Signed procedure consent form obtained from patient. 9:08:21 ECG and BP/O2 sat monitors applied to patient. 9:18:34 Vital chart was started 9:18:35 Baseline sample Acquired. 9:18:42 Rhythm: sinus bradycardia 9:18:47 Full Disclosure recording started 9:18:52 H&P Date Dictated: 08/12/2016 New H&P dictated by physician.. 9:18:53 Pre-procedure instructions explained to patient. 9:18:54 Pre-op teaching completed and patient verbalized understanding. 9:18:55 Family in waiting room. 9:18:56 Patient NPO since Midnight. 9:19:10 Is the patient allergic to Iodine/contrast media? No. 9:19:12 Is patient on blood thinner?Yes 9:19:16 ACC The patient was administered the following blood thiners within the last 24 hours: ACCPlavix 9:19:17 Patient diabetic? Yes. 9:19:20 If diabetic: On Metformin? No 9:19:22 Patient not . Patient is over age 55. 9:19:25 Previous problem with sedation/anesthesia? No ? 9:19:26 Snore? Yes 9:19:28 Sleep apnea? No 9:19:29 Deviated septum? No 9:19:30 Opens mouth fully? Yes 9:19:31 Sticks out tongue? Yes 9:19:32 Airway obstruction? No ? 9:19:35 Dentures? Yes IN 9:19:56 Pre procedure: right dorsailis pedis pulse 1+ Palpable, but thready & weak; easily obliterated 9:20:05 Patient pain scale 0/10 ?. 9:20:09 IV patent on arrival in left forearm with 0.9% NaCl at KVO. 9:20:11 Lab results completed and on chart. 9:20:13 Right groin area was prepped with chlora-prep and draped in sterile fashion 9:20:15 Alarms reviewed by R. N. 9:20:15 Sharps counted by scrub and verified by R.N. 9:23:24 Use device set Femoral PCI 9:23:27 Tegaderm 4 x 4 opened to sterile field. 9:23:28 Acist Manifold opened to sterile field. 9:23:29 Acist Syringe opened to sterile field. 9:23:29 Acist Hand Control opened to sterile field. 9:23:30 Bag Decanter opened to sterile field. 9::30 Cardinal Cath Pack opened to sterile field. 9:23:30 Terumo 6Fr [place] Sheath opened to sterile field. 9:: [place] 260cm J .035 wire opened to sterile field. 9:23:31 Merit BasixCompak Inflation Kit opened to sterile field. 9:24:04 Oxygen 2 l/min NC was given by Pino Pedraza RN; used for procedure; 9:24:12 Lidocaine 2% 20ml vial added to field was given by Anupam King MD; for local anesthetic; 9:24:19 Heparin Flush Bag (1000units/500ml NS) 2 bags added to field was given by Anupam King MD; used for procedure; 9:24:28 0.9% NaCl 100 ml/hr I.V. was given by Pino Pedraza RN; Per physician; 9:28:20 Patient Height : 61 inches 9:29:02 Patient Weight : 141.1 lbs 9::56 --------ALL STOP TIME OUT------ 9:29:56 Final Timeout: patient, procedure, and site verified with staff and physician. All members of the team are in agreement. 9:29:59 Right groin site verified by team. 9:30:03 Physical assessment completed. ASA score P 2 - A patient with mild systemic disease as per Anupam King MD. 9:30:07 Sedation plan: IV Moderate Sedation Versed, Fentanyl 9:30:44 Fentanyl 50 mcg I.V. was given by Pino Pedraza RN; for sedation; 9:31:17 Cordis 6FR XBLAD 3.5 guide catheter opened to sterile field. 9:32:31 Procedure started. 9:32:37 Local anesthetic to right femoral artery with Lidocaine 2% by Anupam King MD.INITIAL ACCESS ONLY 9:33:24 A 6 Fr Short sheath was inserted into the Right Femoral artery 9:33:42 ACC PCI Site: mLAD has 95% stenosis. 9:33:44 ACC Pre-intervention PHILLIP Flow is 3. 9:33:49 Fentanyl 50 mcg I.V. was given by Pino Pedraza RN; for sedation; 9:33:50 6 Fr XBLAD 3.5 guide catheter was inserted over the wire 9:34:44 Heparin Bolus 4000 units I.V. was given by Pino Pedraza RN; for anticoagulation; verified with dr king 9:34:57 Choice PT XS wire advanced. 9:35:32 Uehling Sci Choice PT Extra Support J 300cm .014 gu opened to sterile field. 9:37:42 Fentanyl 50 mcg I.V. was given by Pino Pedraza RN; for sedation; 9:38:37 Uehling Sci Choice PT Extra Support J 300cm .014 gu opened to sterile field. 9:38:38 Venture 6F catheter opened to sterile field. 9:40:28 Venture guide cath advanced with new choice PT extra support 9:41:56 Wire advanced across lesion. 9:42:10 Venture cath removed 9:44:27 Inflation number: 1 A Euphora 1.5 x 15 Balloon was prepped and advanced across the Undefined1, then inflated to 21 NIVIA for 0:10 (min:sec). 9:45:56 Fentanyl 50 mcg I.V. was given by Pino Pedraza RN; for sedation; 9:46:17 Inflation number: 1 A Euphora 2.5 x 15 Balloon was prepped and advanced across the Mid LAD, then inflated to 17 NIVIA for 0:10 (min:sec). 9:46:51 Balloon removed over the wire. 9:52:26 Inflation Number: 2 A Medtronic Resolute 3.0 X 9 stent was prepped and advanced across the Mid LAD. The stent was deployed at 17 NIVIA for 0:10 (min:sec). 9:53:28 Stent catheter was removed intact over wire. 9:53:34 Wire removed. 9:53:49 Sheath removed intact; hemostasis achieved with Vascade Closure System to the Right Femoral artery. 9:53:59 Vascade 6/7 Fr Closure Device opened to sterile field. 9:54:04 Procedure ended.(Physican Out) 9:54:11 Fluoroscopy time 07.80 minutes. 9:54:19 Flurop Dose total: 978 9:54:20 Fluoroscopy dose: 978 mGy 9:54:28 Contrast amount:Isovue 300 46ml. 9:54:30 Sharps counted by scrub and verified by JennN. 9:54:37 Post-op/insertion site Right Femoral artery dressed using a 4 x 4 and Tegaderm. 9:54:42 Post Procedure Pulses reassessed and unchanged 9:54:46 Post-procedure physical assessment completed. ASA score P 2 - A patient with mild systemic disease as per Anupam King MD. 9:54:51 Post procedure rhythm: unchanged. 9:54:55 Estimated blood loss: 10 ml 9:55:00 Post procedure instruction explained to patient.Patient verbalizes understanding. 9:55:47 Procedure and supply charges have been captured, reviewed, submitted and are correct. 9:56:12 Procedure Complication : No complications 9:56:15 Vital chart was stopped 9:56:16 See physician's report for complete and final results. 9:56:27 Report given to [facility]. 9:56:32 Patient transfered to [facility] with Bed. 9:56:36 Procedure ended. 9:56:36 Full Disclosure recording stopped 9:56:39 End room use (Document Last) 9:58:17 Plavix 75 mg P.O. was given by Pino Pedraza RN; for antiplatelet therapy; Intervention Summary Intervention Notes Time ActionType Lesion and Equipment Action# Pressure Duration Attributes Used 9:44:27 Inflate Undefined1 Euphora 1 21 00:10 balloon 1.5 x 15 Balloon 9:46:17 Inflate Mid LAD Euphora 1 17 00:10 balloon 2.5 x 15 Balloon 9:52:26 [address] stent Mid LAD Medtronic 2 17 00:10 Resolute 3.0 X 9 stent Device Usage Item Name Manufacture Quantity Catalog Number [facility] Lot# / Charge Number Stock Stock Serial# Code Tegaderm 4 3M 1 [id number] [id number] [id number] 5 x 4 Acist Acist 1 02795 746309 774353 886951 5 Manifold Medical Systems Inc Acist Acist 1 09254 486549 349712 420536 20 Syringe Medical Systems Inc Acist Hand Acist 1 93403 713921 581420 484589 5 Control Medical Systems Inc Bag Microtek 1 2002S 971958 09176 078784 5 WakeMate Medical Inc. Cardinal Cardinal [address] 467860 44250 766621 5 Options[employer] Software Terumo 6Fr Terumo 1 [id number] 739125 348971 776120 [address] Bolivar 1 627496 145111 845702 251334 30 260cm J .035 wire Merit Merit 1 [id number] 678534 840060 106406 15 JetabroadixFoneSensescGuavas Medical Inflation Kit Cordis 6FR Cardinal 1 [id number] 951571 076412 202919 10 XBLAD 3.5 Health guide catheter Uehling Sci Uehling 2 [id number] 706005 767590 780306 5 Choice PT Scientific Extra Support J 300cm .014 gu Venture 6F Vascular 1 5821 428724 729313 224421 1 catheter Solutions Euphora 1.5 Medtronic 1 [id number] 556615 969539 801139 5 [id number] x 15 Balloon Euphora 2.5 Medtronic 1 [id number] 110901 181229 040661 5 [id number] x 15 Balloon Medtronic Medtronic 1 [id number] 713816 693485 8 [id number] Resolute 3.0 X 9 stent Vascade 12/23 Cardiva 1 [id number] 213233 588111 382008 5 Fr Closure Medical, Device Inc. Signature Audit [place] Stage Time Signature Unsigned Intra-Procedure 08/12/2016 Ana Montanez 9:58:59 AM RT(R) Signatures Monitor : Tejinder Hernandez RT Signature : Date : Time : Monitor : Ana Montanez Signature : RT Date : Time : [address] [place] [address]
[2016-08-11 19:44] LABS: BASOPHILS 0.5 % (0.0-2.0); EOSINOPHILS 3.5 % (0-7); HEMATOCRIT 29.6 % (36.0-48.0); HEMOGLOBIN 9.5 g/dL (12-16); IMMATURE GRANULOCYTES 0.7 % (0-5); LYMPHOCYTES 16.8 % (15-50); MCH 29.9 pg (26.0-34.0); MCHC 32.1 g/dL (31.0-37.0); MCV 93.1 fL (80.0-100.0); MEAN PLATELET VOLUME 11.9 fL (7.4-10.4); MONOCYTES 7.6 % (2-11); NEUTROPHILS 70.9 % (40-80); RBC 3.18 10x6/uL (4.00-5.40); RDW 13.7 % (11.5-14.5); WBC 7.4 10x3/uL (4.8-10.8)
[2016-08-11 19:51] LABS: PLATELET COUNT 146 10x3/uL (130-400)
[2016-08-11 20:06] LABS: ALKALINE PHOSPHATASE 83 U/L (46-116); ALT (SGPT) 39 U/L (10-68); BILIRUBIN - TOTAL 0.19 mg/dL (0.2-1.3); CALC OSMOLALITY 262 mosm/kg (275-300); CALCIUM 8.4 mg/dL (8.5-10.1); CARBON DIOXIDE 23.9 mmol/L (21.0-32.0); CHLORIDE - SERUM 93 mmol/L (98-107); CREATININE - SERUM 1.9 mg/dL (0.6-1.3); GLUCOSE 141 mg/dL (74-106); POTASSIUM - SERUM 4.5 mmol/L (3.5-5.1); PROTEIN - SERUM 6.4 g/dL (6.4-8.2); SODIUM 127 mmol/L (136-145); UREA NITROGEN 28 mg/dL (7-18); eGFR NON AFRICAN AMERICAN 27 mL/min (90-120)
[2016-08-11 20:16] LABS: CREATINE KINASE 254 UL (21-215); TROPONIN-I 0.024 ng/mL (0.000-0.060)
[~2016-08-11 20:41] MED LIST changes: +ARICEPT5 MG PO; +BUMEX 1 MG TAB1 MG PO; +BUPROPION XL150 MG PO; +CALTRATE 600 M600 M1 PO; +DEXILANT60 MG PO; +FERROUS SULFAT325 MG PO; +HYDRALAZINE HCL50 MG PO; +ISOSORBIDE DINI20 MG PO; +MIRAPEX0.125 MG PO; +MUCINEX D1 TAB.SR . PO; +NORMODYNE / TR100 MG PO
[2016-08-11 22:00] VITALS: BP 148/54
[2016-08-11] MEDS ORDERED: MACROBID100 MG PO (22:17)
[2016-08-12 01:09] VITALS: BP 148/54; Ht 154.9 cm; Wt 63.6 kg
[2016-08-12 01:12] VITALS: BP 170/50
--- NOTE | 2016-08-12 01:25 | NUR ---
ASSESSMENT COMPLETE PT RESTING QUIETLY DENIES ANY NEEDS OR DISCOMFORT NAD NOTED
[2016-08-12 01:43] LABS: CKMB 2.2 U/L (0.0-3.6); CREATINE KINASE 199 UL (21-215); TROPONIN-I 0.024 ng/mL (0.000-0.060)
--- NOTE | 2016-08-12 02:07 | NUR ---
SOCIAL ECONOMIST AT BED SIDE, PT UP TO SHOWER.
--- NOTE | 2016-08-12 04:31 | NUR ---
ULTRAM 1 TAB GIVEN FOR C/O PAIN TO HEAD. RATES PAIN AT A 6 ON PAIN SCALE.
--- NOTE | 2016-08-12 04:55 | NUR ---
NOTIFIED BY SOIL AND PLANT SCIENTIST THAT PTS BP WAS 216/63. ENTERED ROOM AND RECHECKED BP WITH DIFFERENT MACHINE, 173/73. WILL CONT TO MONITOR.
[2016-08-12 04:56] VITALS: BP 173/75
[2016-08-12 05:21] VITALS: BP 204/56
[2016-08-12 07:23] LABS: CKMB 2.3 U/L (0.0-3.6); CREATINE KINASE 184 UL (21-215); TROPONIN-I 0.018 ng/mL (0.000-0.060)
[2016-08-12 08:21] VITALS: BP 207/65
[2016-08-12 08:32] LABS: BASOPHILS 0.5 % (0.0-2.0); EOSINOPHILS 3.9 % (0-7); HEMATOCRIT 29.5 % (36.0-48.0); HEMOGLOBIN 9.6 g/dL (12-16); IMMATURE GRANULOCYTES 0.5 % (0-5); LYMPHOCYTES 16.2 % (15-50); MCH 29.9 pg (26.0-34.0); MCHC 32.5 g/dL (31.0-37.0); MCV 91.9 fL (80.0-100.0); MEAN PLATELET VOLUME 12.2 fL (7.4-10.4); MONOCYTES 9.8 % (2-11); NEUTROPHILS 69.1 % (40-80); PLATELET COUNT 149 10x3/uL (130-400); RBC 3.21 10x6/uL (4.00-5.40); RDW 13.6 % (11.5-14.5); WBC 5.7 10x3/uL (4.8-10.8)
[2016-08-12 08:41] LABS: CALCIUM 8.5 mg/dL (8.5-10.1); CARBON DIOXIDE 28.4 mmol/L (21.0-32.0); CREATININE - SERUM 1.8 mg/dL (0.6-1.3); POTASSIUM - SERUM 4.4 mmol/L (3.5-5.1)
--- NOTE | 2016-08-12 09:18 | NUR ---
TELEMETRY SR. PRE-OPS GIVEN. CONSENTS SIGNED FOR [facility]. LEAVING FOR [employer] COMMERCE DEVELOPER BY BED.
--- NOTE | 2016-08-12 10:23 | NUR ---
BACK FROM TAX REVENUE OFFICER. VS WNL. RIGHT GROIN STABLE WITHOUT BLEEDING OR HEMATOMA NOTED. WILL MONITOR.
[2016-08-12 12:05] VITALS: BP 174/76
--- NOTE | 2016-08-12 14:01 | NUR ---
BEDREST UP. GROIN STABLE.
--- NOTE | 2016-08-12 14:10 | NUR ---
DC PLANS CLLED TO NURSE AT [facility]. UNDERSTANDING VOICED. IV AND TELEMETRY DCD. WAITING FOR RIDE.
--- NOTE | 2016-08-12 14:25 | NUR ---
ESCORTED TO CAR BY W/C.
--- NOTE | 2016-08-17 14:16 | HP ---
PATIENT: ADRIANA MARCELINO MEDICAL RECORD: [id number] ACCOUNT: [id number] LOCATION:[facility] : 38 ADMISSION DATE: 08/11/16 HISTORY AND PHYSICAL EXAMINATION DATE OF ADMISSION: 08/12/2016. ADMISSION DIAGNOSES: 1. Unstable angina. 2. Coronary artery disease. 3. Previous multivessel percutaneous transluminal coronary angioplasty stent. 4. Paroxysmal atrial fibrillation. 5. Hypertension. 6. Hyperlipidemia. HISTORY OF PRESENT ILLNESS: Mrs. Marcelino presents with anginal symptomatology. She presented last week, she had disease of the left circumflex and LAD. Dr. Rincon fixed her left circumflex. He did not fix the LAD secondary to chronic renal insufficiency. She has continued to have chest pain compatible with angina. Her creatinine is 1.9. This is unchanged from what was Previously. PHYSICAL EXAMINATION: GENERAL APPEARANCE: Well-nourished, well-developed, appears stated age. Level of distress, comfortable. PSYCHIATRIC: Mental status, alert, normal affect. Orientation, oriented to time, place and person. EYES: Lids and conjunctiva, noninjected. No discharge, no pallor. ENT: Lips, teeth, gums, normal dentition. Oropharynx, no cyanosis, no pallor. NECK: Carotid arteries, bilateral normal upstroke, no bruits, no thrills. JUGULAR VEINS: No jugular venous pressure or distention. CERVICAL LYMPH NODES: Nontender, nonenlarged. THYROID: Not enlarged. Nontender. No nodules. LUNGS: Respiratory effort, unlabored. CHEST: Normal curvature. No thoracic deformity. No chest wall tenderness. Percussion, resonant. Auscultation, clear. No wheezes, no rales, no rhonchi. CARDIOVASCULAR: Precordial exam, nondisplaced. No heaves or pericardial thrills. Rate and rhythm, regular. Heart sounds, normal S1, normal S2. No S3, no gallop, no rub. Systolic murmur, not heard. Diastolic murmur, not heard. EXTREMITIES: No cyanosis, no edema. Peripheral pulses, full and equal in all extremities, except as noted. No bruits appreciated. ABDOMEN: Soft, nondistended. Normal aorta. No bruit. Nontender. No masses. Liver, nontender, no hepatomegaly. Spleen, nontender, no splenomegaly. MUSCULOSKELETAL: No joint tenderness. No joint swelling. No erythema. NEUROLOGICAL: Normal gait, normal strength, normal tone. SKIN: Warm and dry. REVIEW OF SYSTEMS: The patient reports easy bruising but reports no swollen glands. The patient reports no fever, no night sweats, no significant weight gain, no significant weight loss. No significant exercise tolerance. The patient reports no dry eyes, no irritation, no vision change. Patient reports no difficulty hearing and no ear pain. Patient reports no frequent nose bleeds or nose and sinus problems. Patient reports on arm pain on exertion. No shortness of breath while lying down. No history of heart murmur. Patient reports no cough, no wheezing or coughing up blood. Patient reports no abdominal pain, no vomiting. Normal appetite. No diarrhea and not vomiting HISTORY AND PHYSICAL [id number] ADRIANA MARCELINO blood. No nausea and no constipation. Patient reports no incontinence. No difficulty urinating. No hematuria. No increased frequency. Patient reports no muscle aches. No weakness, no arthralgias, no back pain. No swelling of the extremities. Patient reports no abnormal mole, no jaundice, no rashes. Reports no loss of consciousness. No weakness and no numbness. No seizures, dizziness, or headaches. The patient reports no depression, no sleep disturbance, feeling safe in a relationship and no alcohol abuse. Patient reports on fatigue. Reports no runny nose or sinus pressure. No itching, no hives, and no frequent sneezing. OVERALL IMPRESSION: Critical disease of the LAD, a greater than 95%. Creatinine is unchanged. We will proceed with PTCA stent of the LAD. TRANSINT:[id number] Voice Confirmation ID: [id number] DOCUMENT ID: [id number] VAIBHAV WEAVER MD at 1416 CC: [id number] DICTATION DATE: 08/12/16 0809 SCRATCH FINISHER: 08/12/16 0827 [facility] CLI 08/12/16 [place] [id number] [place] [id number]
--- NOTE | 2016-08-17 14:16 | OP ---
PATIENT NAME: ADRIANA MARCELINO MEDICAL RECORD: [id number] :38 LOCATION:D.CAT ADMISSION DATE: SURGEON: VAIBHAV WEAVER MD DATE OF OPERATION: 08/12/2016 PROCEDURES: 1. PTCA stent LAD. 2. Selective coronary angiography. INDICATION: Angina and coronary artery disease. PROCEDURE IN DETAIL: After informed consent was obtained and after a detailed explanation of the risks, benefits, as well as alternative therapies, the patient elected to proceed with angiogram and angioplasty. The right femoral area was prepped and draped in normal sterile fashion. The right femoral artery was cannulated via modified Seldinger technique with placement of 6-Chinese sheath. All catheters exchanged through this sheath. FINDINGS: The left anterior descending has a 95% in-stent restenosis in the proximal aspect. This was addressed with a 3.0 x 9 mm Resolute stent taken to 17 atmospheres. Result was 0% residual stenosis. OVERALL IMPRESSION: Successful percutaneous transluminal coronary angioplasty stent of the left anterior descending going from 95% in-stent restenosis to 0% residual. TRANSINT:[id number] Voice Confirmation ID: [id number] DOCUMENT ID: [id number] VAIBHAV WEAVER MD at 1416 CC: [id number] DICTATION DATE: 08/12/16 0958 MECHANICAL MAINTENANCE FOREMAN: 08/12/16 1035 [facility] CLI 08/12/[address] [id number]
--- NOTE | 2016-08-17 14:16 | DS ---
PATIENT:ADRIANA MARCELINO :38 MEDICAL RECORD: [id number] DISCHARGE SUMMARY ADMISSION DATE: 08/11/16 DISCHARGE DATE: 08/12/16 DISCHARGE DIAGNOSES: 1. Angina. 2. Coronary artery disease. 3. Hypertension. 4. Hyperlipidemia. 5. Percutaneous transluminal coronary angioplasty stent, left anterior descending this admission. HOSPITAL COURSE: Mrs. Marcelino has a known 95% stenosis of the LAD. She presents with recurrent angina. She underwent successful PTCA stent of the LAD, had an uneventful postop course with no further anginal symptomatology. Discharged home with no change in her medications as she is already on aspirin and Plavix. We will follow up with [facility] in 1 month. TRANSINT:[id number] Voice Confirmation ID: [id number] DOCUMENT ID: [id number] VAIBHAV WEAVER MD at 1416 CC: [id number] DICTATION DATE: 08/12/16 0957 DRYWALL TAPER: 08/12/16 2130 [facility] CLI 08/12/[address] [address]
== END 2016-08-12 14:26 | disposition home or self-care (01) ==
LOC: OBSVTIME → D.M2 20:41 → D.ER 20:41 → OBSVTIME 20:41 → D.CATH 20:41 → D.M2 21:36 → EDSTATUS 08-12 09:00 → D.M2 08-12 14:26 → D.CATH 08-12 14:26
PROVIDERS: Emergency Medicine; Internal Medicine Interventional Cardiology
DX: I25.110 Atherosclerotic heart disease of native coronary artery with unstable angina pectoris (principal); Z95.5 Presence of coronary angioplasty implant and graft; T82.855A Stenosis of coronary artery stent, initial encounter; Y83.8 Other surgical procedures as the cause of abnormal reaction of the patient, or of later complication, without mention of misadventure at the time of the procedure; I48.0 Paroxysmal atrial fibrillation; I12.9 Hypertensive chronic kidney disease with stage 1 through stage 4 chronic kidney disease, or unspecified chronic kidney disease; N18.9 Chronic kidney disease, unspecified; E78.5 Hyperlipidemia, unspecified
CPT/HCPCS: 93458; C9600

== ENCOUNTER → 2016-09-22 10:01 | Outpatient (CLI) | payer MEDICARE ==
[2016-08-12 01:09] VITALS: BMI 26.5
[~2016-09-22 10:01] MED LIST changes: +BUPROPION HCL100 MG PO; +MACROBID100 MG PO; +MYSOLINE250 MG PO; +ZYRTEC10 MG PO
[2016-09-22 10:37] LABS: BASOPHILS 0.4 % (0.0-2.0); HEMATOCRIT 30.5 % (36.0-48.0); HEMOGLOBIN 9.6 g/dL (12-16); IMMATURE GRANULOCYTES 0.2 % (0-5); LYMPHOCYTES 16.1 % (15-50); MCH 29.5 pg (26.0-34.0); MCHC 31.5 g/dL (31.0-37.0); MCV 93.8 fL (80.0-100.0); MONOCYTES 8.5 % (2-11); NEUTROPHILS 72.8 % (40-80); PLATELET COUNT 161 10x3/uL (130-400); RBC 3.25 10x6/uL (4.00-5.40); RDW 15.1 % (11.5-14.5); WBC 5.4 10x3/uL (4.8-10.8)
[2016-09-22 11:06] LABS: ANION GAP 10.7 mmol/L (8-16); BILIRUBIN - TOTAL 0.3 mg/dL (0.2-1.3); CALCIUM 8.7 mg/dL (8.5-10.1); CARBON DIOXIDE 27.3 mmol/L (21.0-32.0); CREATININE - SERUM 1.7 mg/dL (0.6-1.3); PROTEIN - SERUM 6.3 g/dL (6.4-8.2)
== END | disposition home or self-care (01) ==
LOC: D.RAD 09-21 08:00
PROVIDERS: Internal Medicine Gastroenterology
DX: D64.9 Anemia, unspecified (principal); R53.83 Other fatigue; K59.00 Constipation, unspecified

== ENCOUNTER 2016-10-18 15:36 | Inpatient (IN) | payer MEDICARE ==
[2016-10-18] VITALS (7 sets, daily range): BP systolic 139–175; BP diastolic 57–94; BMI 33.9
[~2016-10-18] VITALS: Ht 154.9 cm; Wt 78.6 kg
[~2016-10-18 15:36] MED LIST changes: -BUPROPION HCL100 MG PO; -MYSOLINE250 MG PO; -ZYRTEC10 MG PO
[2016-10-18 16:03] LABS: BASOPHILS 0.7 % (0.0-2.0); EOSINOPHILS 2.6 % (0-7); HEMATOCRIT 26.2 % (36.0-48.0); HEMOGLOBIN 8.5 g/dL (12-16); IMMATURE GRANULOCYTES 0.5 % (0-5); LYMPHOCYTES 23.6 % (15-50); MCH 30.4 pg (26.0-34.0); MCHC 32.4 g/dL (31.0-37.0); MCV 93.6 fL (80.0-100.0); MEAN PLATELET VOLUME 10.5 fL (7.4-10.4); MONOCYTES 8.6 % (2-11); PLATELET COUNT 192 10x3/uL (130-400); RDW 14.8 % (11.5-14.5); WBC 5.7 10x3/uL (4.8-10.8)
[2016-10-18 16:13] LABS: APTT 29.7 SECONDS (22.8-39.4); INR 1.08 (0.85-1.17); PROTIME 13.8 SECONDS (11.6-15.0)
[2016-10-18 16:23] LABS: ALBUMIN 2.9 g/dL (3.4-5.0); ANION GAP 14.4 mmol/L (8-16); BILIRUBIN - TOTAL 0.21 mg/dL (0.2-1.3); CALCIUM 7.6 mg/dL (8.5-10.1); CARBON DIOXIDE 22.9 mmol/L (21.0-32.0); CREATININE - SERUM 1.5 mg/dL (0.6-1.3); POTASSIUM - SERUM 4.3 mmol/L (3.5-5.1); PROTEIN - SERUM 5.8 g/dL (6.4-8.2)
[2016-10-18 18:58] LABS: HEMOGLOBIN 9.7 g/dL (12-16)
--- NOTE | 2016-10-18 18:58 | NUR ---
RECIEVED PT TO ROOM CV05 VIA STRETCHER AT 1840. CONNECTED TO MONITORS. C/L IN REACH.
--- NOTE | 2016-10-18 19:28 | NUR ---
Patient Name: ADRIANA MARCELINO Admission Status: ER Accout number: [id number] Admission Date: 10-18-2016 : 1940 Admission Diagnosis: Head Injury, anemia Attending: PAULA Current LOS: 1 Anticipated DC Date: 10-21-2016 Planned Disposition: Assisted Living Primary Insurance: MEDICARE A & B Discharge Planning Comments: Cm met with patient to complete initial discharge planning assessment. Patient gave consent to complete assessment. Patient reports she lives at [facility]. She denied community resources at this time. Patient plans to return to [facility] upon discharge. CM will continue to follow and assist with dc plan/needs. Soap Mixer: Tamra Sagastume RN, [facility] [phone] Is the patient Alert and Oriented? Yes 0 * How many steps to enter\exit or inside your home? none 0 * PCP Dr. Richter 0 * Preadmission Environment Assisted Living 0 * Facility Name [facility] 0 * ADLs Independent 0 * Equipment Cane Walker 0 * Community resources currently utilized None 0 * Please name any agencies selected above. Chito Morales - [facility] friend - [phone] Adry Marcelino - daughter - [phone] 0 * Additional services required to return to the preadmission environment? No 0 * Can the patient safely return to the preadmission environment? Yes 0 * Has this patient been hospitalized within the prior 30 days at any hospital? No
--- NOTE | 2016-10-18 19:30 | NUR ---
Assessment completed per flowsheet, patient resting in bed with eyes open. Patient AO x4, grimacing noted with friendly demeanor. Dressing on head covering laceration L side, no bleeding noted with moderate blood noted on old dressing. Bruises noted L side of face and neck, patient c/o "stiff neck". Eyes PERRLA @ 4mm with brisk response, sclera is white. Tongue is midline, oral/nasal mucosa is moist and intact. S1/S2 noted with patient NSR on telemetry with HR 64. Breathing is even and unlabored, lung sounds diminished all carrera. Abdomen is soft and nontender, Bowel sounds Active x4. Patient last BM 10/18/16 of unknown consistency, no difficulties reported. Weakness noted all extremities with full ROM, Cap refill <3 sec. PIV x2 noted L forearm/L AC, patent with fluids infusing. Patient states pain 2/10 aching neck pain, repositioned for comfort and will reassess. No further needs at this time, all VSS and will continue to monitor.
--- NOTE | 2016-10-18 21:00 | NUR ---
No visitors at this time, patient in bed reading. Patient denies pain or other needs at this time, all VSS and will continue to monitor.
--- NOTE | 2016-10-18 23:00 | NUR ---
Reassessment completed per flowsheet, patient resting in bed with eyes closed. Patient NSR with possible 1st degree block on telemetry, rhythmic and regular. Breathing is even and unlabored on 2L via NC, O2 sat 96%. Eyes PERRLA @ 3mm with brisk response, tongue is midline. Patient responds appropriately to questions, states no further needs at this time. All VSS and will continue to monitor.
[2016-10-19] VITALS (23 sets, daily range): BP systolic 120–169; BP diastolic 44–66; Ht 154.9 cm; Wt 78.6 kg
--- NOTE | 2016-10-19 01:05 | NUR ---
Patient assisted onto bedpan, 700ml clear yellow urine noted. No further needs at this time, all VSS and will continue to monitor.
--- NOTE | 2016-10-19 03:00 | NUR ---
Reassessment completed per flowsheet, patient resting in bed with eyes closed. Patient Sinus fredis on telemetry with possible 1st degree block with HR 58. Breathing is even and unlabored on 2L via NC, O2 sat 95%. Eyes PERRLA @ 3mm with brisk response, sclera is white. Tongue is midline, speech is clear and answers appropriately. States pain worsening in head, states "feels like sinus headache". Repositioned for comfort, patient states "some relief". No further needs at this time, all VSS and will continue to monitor.
[2016-10-19 03:20] LABS: BASOPHILS 0.5 % (0.0-2.0); EOSINOPHILS 1.8 % (0-7); HEMATOCRIT 26.5 % (36.0-48.0); HEMOGLOBIN 8.8 g/dL (12-16); IMMATURE GRANULOCYTES 0.7 % (0-5); LYMPHOCYTES 19.9 % (15-50); MCH 30.4 pg (26.0-34.0); MCHC 33.2 g/dL (31.0-37.0); MCV 91.7 fL (80.0-100.0); MEAN PLATELET VOLUME 10.3 fL (7.4-10.4); MONOCYTES 7.5 % (2-11); NEUTROPHILS 69.6 % (40-80); RBC 2.89 10x6/uL (4.00-5.40); RDW 14.7 % (11.5-14.5); WBC 6.1 10x3/uL (4.8-10.8)
[2016-10-19 03:30] LABS: PLATELET COUNT 140 10x3/uL (130-400)
[2016-10-19 03:32] LABS: ANION GAP 9.9 mmol/L (8-16); CARBON DIOXIDE 26.6 mmol/L (21.0-32.0); CREATININE - SERUM 1.6 mg/dL (0.6-1.3); POTASSIUM - SERUM 4.5 mmol/L (3.5-5.1)
--- NOTE | 2016-10-19 05:00 | NUR ---
Patient resting in bed with eyes closed, breathing is even and unlabored on room air. No bleeding noted from head laceration, [address] No further needs at this time, all VSS and will continue to monitor.
--- NOTE | 2016-10-19 07:15 | NUR ---
REPORT RECIEVED FROM SOLAR ENGINEER NURSE. PT RESTING IN BED QUIETLY. NO S/SX OF ACUTE DISTRESS NOTED AT THIS TIME. VSS. CALL LIGHT IN REACH. ASSESSMENT COMPLETE PER FLOWSHEET. WILL CONT TO ASSESS FOR CHANGES.
--- NOTE | 2016-10-19 09:30 | NUR ---
MORNING MEDICATIONS GIVEN PER ORDERS.
--- NOTE | 2016-10-19 11:15 | NUR ---
PLACED ON BED OSWALD. URINATED ON ISAIAH PAD. UNABLE TO ASSESS OUTPUT. MODERATE AMOUNT OF URINE NOTED TO PAD. SEMI FORMED SMALL AMOUNT OF STOOL NOTED TO BEDPAN.
[2016-10-19 12:01] LABS: HEMATOCRIT 25.4 % (36.0-48.0); HEMOGLOBIN 8.4 g/dL (12-16)
--- NOTE | 2016-10-19 13:00 | NUR ---
PLACED ON BED OSWALD. URINATED ON ISAIAH PAD. UNABLE TO ASSESS OUTPUT. MODERATE AMOUNT OF URINE NOTED TO PAD.
--- NOTE | 2016-10-19 13:15 | NUR ---
REQUESTED SOMETHING FOR PAIN. STATES HER HEAD IS HURTING. WILL ADMINISTER TYLENOL PER ORDERS.
--- NOTE | 2016-10-19 13:17 | NUR ---
SPOKE WITH DR. DILLON IN REGARDS TO H&H. STATES HE WANTS TO REPEAT H&H IN THE MORNING AND HOLD OFF ON TRANSFUSING AT THIS TIME SINCE SHE RECIEVED A UNIT OF PRBC IN ER.
--- NOTE | 2016-10-19 15:00 | NUR ---
PT'S HAIR WASHED. DRY MATTED AREAS WHERE BLOOD HAD DRIED FROM HEAD LACERATION WERE WASHED OUT AND COMBED. WAS NOT ABLE TO GET CLOSE TO LACERATION BC IT WAS TOO PAINFUL. MINIMAL BLEEDING NOTED TO LACERATION. OPEN TO AIR. WILL CONTINUE TO MONITOR.
--- NOTE | 2016-10-19 16:45 | NUR ---
SPOKE WITH DR. SHAFFER'S NURSE IN REGARDS TO PT'S BP. STATED TO NURSE THAT PT HAS MOMENTS WHERE SBP IS GREATER THAN 160. ORDER RECIEVED FOR PRN VASOTEC IF NEEDED. WILL ADMINSTER WHEN APPROPRIATE.
--- NOTE | 2016-10-19 18:00 | NUR ---
PLACED ON BED OSWALD. VOIDED MODERATE AMOUNT OF CLEAR, YELLOW URINE.
[2016-10-19 19:09] LABS: HEMATOCRIT 25.9 % (36.0-48.0); HEMOGLOBIN 8.7 g/dL (12-16)
--- NOTE | 2016-10-19 19:35 | NUR ---
REC'D TO CARE, TALKING ON PHONE. EXECUTIVE SOUS CHEF PER FLOWSHEET. VSS. HEAD LAC NOTED, BRUISE/ABRASION TO L JAW/NECK. PIV X 2, NS AT KVO, NO REDNESS OR SWELLING AT SITES. PT DENIES ANY NEEDS AT THIS TIME. ALARMS ON AND C/L IN REACH.
--- NOTE | 2016-10-19 21:00 | NUR ---
NO VISITORS. PT RESTING WITH EYES CLOSED, VSS.
--- NOTE | 2016-10-19 23:28 | NUR ---
REASSESSMENT PER FLOWSHEET, NO ACUTE CHANGES. VSS. ALARMS ON AND C/L IN REACH.
[2016-10-20] VITALS (23 sets, daily range): BP systolic 117–180; BP diastolic 37–101
--- NOTE | 2016-10-20 03:19 | NUR ---
REASSESSMENT PER FLOWSHEET, NO ACUTE CHANGES. PT AWAKENS EASILY, DENIES PAIN OR NEEDS. VSS. C/L IN REACH.
[2016-10-20 04:22] LABS: BASOPHILS 0.2 % (0.0-2.0); EOSINOPHILS 3.3 % (0-7); HEMATOCRIT 24.2 % (36.0-48.0); HEMOGLOBIN 7.9 g/dL (12-16); IMMATURE GRANULOCYTES 0.3 % (0-5); LYMPHOCYTES 9.4 % (15-50); MCH 30.4 pg (26.0-34.0); MCHC 32.6 g/dL (31.0-37.0); MCV 93.1 fL (80.0-100.0); MEAN PLATELET VOLUME 10.6 fL (7.4-10.4); MONOCYTES 7.3 % (2-11); NEUTROPHILS 79.5 % (40-80); PLATELET COUNT 137 10x3/uL (130-400); RDW 15.1 % (11.5-14.5); WBC 5.8 10x3/uL (4.8-10.8)
[2016-10-20 04:35] LABS: ANION GAP 10.6 mmol/L (8-16); CARBON DIOXIDE 27.8 mmol/L (21.0-32.0); CREATININE - SERUM 1.9 mg/dL (0.6-1.3); POTASSIUM - SERUM 4.4 mmol/L (3.5-5.1)
--- NOTE | 2016-10-20 05:14 | NUR ---
ON BEDPAN - VOIDED 200ML CONC, YELLOW URINE. SMALL AMT SPILLED. COMPLETE BACK CARE, JS-CARE AND LINEN CHANGE DONE. PT REPOSITIONED UP IN BED WITH PILLOWS FOR COMFORT. C/L IN REACH.
--- NOTE | 2016-10-20 06:27 | NUR ---
AM LAB WNL. ADMIN PO APPRESOLINE EARLY FOR INCREASE IN SBP.
--- NOTE | 2016-10-20 07:30 | NUR ---
REPORT RECIEVED FROM BEARING INSPECTOR NURSE. PT RESTING IN BED QUIETLY. NO S/SX OF ACUTE DISTRESS NOTED AT THIS TIME. CALL LIGHT IN REACH. BED IN LOW POSITION. WILL CONTINUE TO ASSESS FOR CHANGES. ASSESSMENT COMPLETE PER FLOWSHEET.
--- NOTE | 2016-10-20 08:00 | NUR ---
FIRST UNIT OF BLOOD STARTED. PRE-TRANSFUSION VITALS TAKEN. WILL MONITOR FOR CHANGES THROUGHOUT ADMINISTRATION.
[2016-10-20] MEDS ORDERED: BUPROPION HCL100 MG PO (08:18)
[2016-10-20] MEDS ORDERED: ZYRTEC10 MG PO (08:19)
[2016-10-20] MEDS ORDERED: RESTORIL15 MG PO (08:19)
[2016-10-20] MEDS ORDERED: MYSOLINE250 MG PO (08:20)
--- NOTE | 2016-10-20 10:00 | NUR ---
PT STATED SHE WAS COLD. STARTING SHIVERING ALL OVER. COVERED WITH BLANKET. TEMP TAKEN PT 99.4 DEGREES FAHRENHEIT. STARTED TO GET NAUSEOUS. BASIN PLACED IN REACH. BP STARTING TO RISE. PALE IN COLOR. BLOOD TRANSFUSION TURNED OFF. TRANSFUSION REACTION SUSPECTED. CHARGE NURSE, ELZA CALLED.
--- NOTE | 2016-10-20 10:15 | NUR ---
TRANSFUSION REACTION SHEET OBTAINED FROM LAB.
--- NOTE | 2016-10-20 10:20 | NUR ---
PT TAKEN OFF BED OWSALD. MODERATE AMOUNT OF STOOL NOTED TO BED OSWALD.
--- NOTE | 2016-10-20 10:30 | NUR ---
DR. DILLON NOTIFIED OF TRANSFUSION REACTION. ORDERS RECIEVED FOR BENADRYL AND LASIX.
--- NOTE | 2016-10-20 10:38 | NUR ---
MEDICATIONS ADMINISTERED PER ORDERS. WILL CONTINUE TO ASSESS.
[2016-10-20 11:35] LABS: BASOPHILS 0.2 % (0.0-2.0); EOSINOPHILS 0.8 % (0-7); HEMATOCRIT 25.5 % (36.0-48.0); HEMOGLOBIN 8.3 g/dL (12-16); IMMATURE GRANULOCYTES 0.8 % (0-5); LYMPHOCYTES 3.2 % (15-50); MCH 30.2 pg (26.0-34.0); MCHC 32.5 g/dL (31.0-37.0); MCV 92.7 fL (80.0-100.0); MEAN PLATELET VOLUME 10.4 fL (7.4-10.4); MONOCYTES 0.6 % (2-11); NEUTROPHILS 94.4 % (40-80); PLATELET COUNT 133 10x3/uL (130-400); RBC 2.75 10x6/uL (4.00-5.40); RDW 15.4 % (11.5-14.5); WBC 6.6 10x3/uL (4.8-10.8)
[2016-10-20 11:50] LABS: AMORPHOUS SEDIMENT >1+ /lpf (NONE SEEN); APPEARANCE SLT CLOUDY (CLEAR); BACTERIA FEW /hpf (NONE SEEN); BILIRUBIN NEGATIVE (NEGATIVE); COLOR YELLOW (YELLOW); EPITHELIAL CELLS OCC /hpf (0-5); GLUCOSE NEGATIVE (NEGATIVE); KETONE NEGATIVE (NEGATIVE); LEUKOCYTE ESTERASE NEGATIVE (NEGATIVE); MUCUS <1+ /lpf (NONE SEEN); NITRITE NEGATIVE (NEGATIVE); PROTEIN 2+ mg/dL (NEGATIVE); RED CELLS - URINE OCC /hpf (0-5); SPECIFIC GRAVITY 1.015 (1.005-1.020); UROBILINOGEN NORMAL (NORMAL); WHITE CELLS - URINE OCC /hpf (0-5)
--- NOTE | 2016-10-20 12:00 | NUR ---
PT RESTING IN BED WITH EYES CLOSED. RESP EVEN AND UNLABORED. NO S/SX OF ACUTE DISTRESS NOTED AT THIS TIME. VSS. DROWSY POST ADMINISTRATION OF BENADRYL. WILL CONTINUE TO ASSESS.
--- NOTE | 2016-10-20 13:45 | NUR ---
UPDATE CALLED TO DR. DILLON. STATED CONCERNS IN REGARDS TO PT'S CURRENT STATE. PALE IN COLOR.
--- NOTE | 2016-10-20 15:00 | NUR ---
NO VISITORS AT THIS TIME. SPOKE WITH THE RENEWALS REPRESENTATIVE FROM [facility]. UPDATE PROVIDED.
--- NOTE | 2016-10-20 16:45 | NUR ---
DINNER TRAY OFFERED. REFUSED. STATED SHE WASN'T HUNGRY.
--- NOTE | 2016-10-20 18:00 | NUR ---
PARTIAL LINEN CHANGE PROVIDED AFTER TAKING PT OFF BED OSWALD.
--- NOTE | 2016-10-20 19:00 | NUR ---
REC'D TO CARE, RESTING WITH EYES CLOSED, VSS. C/L IN REACH.
--- NOTE | 2016-10-20 20:52 | NUR ---
ADMIN PO MEDS PER MD ORDERS. PT DENIES OTHER NEEDS. ALARMS ON AND C/L IN REACH.
--- NOTE | 2016-10-20 23:10 | NUR ---
REASSESSMENT PER FLOWSHEET, NO ACUTE CHANGES. PT REPORTS "ACCIDENTENTLY PULLED MY IV" - L WRIST PIV LOOSE, NOT PATENT - D/C'D INTACT AND DSG APPLIED. VSS. C/L IN REACH.
[2016-10-21] VITALS (21 sets, daily range): BP systolic 103–182; BP diastolic 43–97
--- NOTE | 2016-10-21 00:23 | NUR ---
PT HAD BM ON BEDPAN. COMPLETE BATH, BACK CARE AND JS-CARE DONE. GOWN AND LINENS CHANGED. PT UP IN BED. HAIR WASHED GENTLY AROUND JUNE WITH HIBICLENS. PT DENIES OTHER NEEDS. C/L IN REACH, ALARMS ON.
--- NOTE | 2016-10-21 01:21 | NUR ---
RESTING WITH EYES CLOSED, NO SIGN OF DISTRESS. C/L IN REACH.
--- NOTE | 2016-10-21 03:30 | NUR ---
REASSESSMENT PER FLOWSHEET, NO ACUTE CHANGES. PT RESTING QUIETLY, DENIES NEEDS. VSS.
[2016-10-21 04:45] LABS: BASOPHILS 0.2 % (0.0-2.0); EOSINOPHILS 3.8 % (0-7); HEMATOCRIT 24.6 % (36.0-48.0); IMMATURE GRANULOCYTES 0.4 % (0-5); LYMPHOCYTES 15.4 % (15-50); MCH 30.1 pg (26.0-34.0); MCHC 32.5 g/dL (31.0-37.0); MCV 92.5 fL (80.0-100.0); MEAN PLATELET VOLUME 11.3 fL (7.4-10.4); MONOCYTES 8.3 % (2-11); NEUTROPHILS 71.9 % (40-80); PLATELET COUNT 116 10x3/uL (130-400); RBC 2.66 10x6/uL (4.00-5.40); RDW 15.8 % (11.5-14.5); WBC 5.5 10x3/uL (4.8-10.8)
[2016-10-21 05:12] LABS: ANION GAP 12.8 mmol/L (8-16); CARBON DIOXIDE 25.1 mmol/L (21.0-32.0); POTASSIUM - SERUM 3.9 mmol/L (3.5-5.1)
--- NOTE | 2016-10-21 05:15 | NUR ---
RESTING WITH EYES CLOSED, VSS. NO SIGN OF DISTRESS.
--- NOTE | 2016-10-21 06:15 | NUR ---
UP TO BSC, LARGE LOOSE BROWN BM. UP IN RECLINER WITH ASSIT X 1. C/L IN REACH.
--- NOTE | 2016-10-21 07:30 | NUR ---
REPORT RECIEVED FROM FARMWORKER CRANBERRY NURSE. PT RESTING IN CHAIR QUIETLY. NO S/SX OF ACUTE DISTRESS NOTED AT THIS TIME. DR. DILLON AT BEDSIDE. ASSESSMENT COMPLETE PER FLOWSHEET. 20G IV PLACED IN LEFT WRIST. X1 ATTEMPT. WILL CONTINUE TO ASSESS FOR CHANGES.
--- NOTE | 2016-10-21 08:02 | HP ---
PATIENT: ADRIANA MARCELINO MEDICAL RECORD: [id number] ACCOUNT: [id number] LOCATION:[facility] NiñoCV05 : 39 ADMISSION DATE: 10/18/16 HISTORY AND PHYSICAL EXAMINATION HISTORY OF PRESENT ILLNESS: A 76-year-old female presented to the Emergency Room with a severe scalp laceration on top of the head and left side of the head with significant bleeding. She has an unstable knee, lost her balance and fell hitting her head. PAST MEDICAL HISTORY: Significant for anemia, hyponatremia, chronic kidney disease, appendectomy, bilateral carpal tunnel surgeries, back surgery, shoulder surgery, breast reduction, tummy tuck, bypass surgery, cardiac stents, hypertension, hyperlipidemia, and neuropathy. ALLERGIES: SULFA, LASIX, VERSED, AND BACTRIM. MEDICATIONS: Gemfibrozil, gabapentin, iron supplements, labetalol, lisinopril, Plavix, electrolyte supplements, Norvasc, Nitrostat, Tylenol, Dexilant, Zyrtec, Aricept, pravastatin, and citalopram. SOCIAL HISTORY: She resides at [facility]. FAMILY HISTORY: Noncontributory. REVIEW OF SYSTEMS: CONSTITUTIONAL: No acute change in weight. Acute contusion. Laceration to scalp, top of the head, left side of the head. Significant blood loss. No LOC. Admits present headache. Denies visual changes. Speech is clear. CARDIOVASCULAR: Denies chest pain. Denies palpitations. Reports she saw her clay preparation supervisor last month, was stable. PULMONARY: Denies hemoptysis, denies night sweats. GASTROINTESTINAL: Denies hematemesis, hematochezia or melena. GENITOURINARY: Denies dysuria, denies change in frequency. MUSCULOSKELETAL: No acute changes. ENDOCRINE: Denies polyuria, polydipsia, and polyphagia. History as above. PHYSICAL EXAMINATION: VITAL SIGNS: Temperature 98.7, blood pressure is 152/72 initially, did have a drop in blood pressure, was found to be anemic and transfused 1 unit in the Emergency Room, heart rate 64, respirations 18, and O2 sat 97%. GENERAL: She is alert and oriented. Speech is clear. No present distress. HEENT: Head is normocephalic. Pressure dressing in place. She had multiple numerous nery to her scalp to close her scalp wound, scalp plaque. Eyes: Pupils are equally round and reactive. Ears: Canals patent. TMs are intact. Nose: Nares patent without drainage. Throat: No erythema, no exudates. NECK: Supple. No lymphadenopathy. HEART: Regular, presently bradycardic with a rate of 51. LUNGS: Clear to auscultation bilaterally. Breathing is nonlabored. ABDOMEN: Soft, nontender. Bowel sounds in all 4 quadrants. NEUROLOGIC: Intact. IMAGING: CT of the head, soft tissue hematoma with laceration, no intracranial abnormalities reported per verbal report. EKG sinus bradycardia with first degree AV block, then rate of 48, this was after pain medications given. HISTORY AND PHYSICAL [id number] ADRIANA MARCELINO ASSESSMENT AND PLAN: Acute head trauma with significant blood loss. The patient is admitted to the ICU with a bradycardia, abnormal EKG. We will consult her clay preparation supervisor. Monitor H&H. Resume home medications as tolerated. TRANSINT:[id number] Voice Confirmation ID: [id number] DOCUMENT ID: [id number] DIANE ZHANG DO at 0802 CC: [id number] DICTATION DATE: 10/18/16 180 SAMPLE GRADER: 10/18/16 192 ADM IN [facility] [address] [place] [id number]
--- NOTE | 2016-10-21 09:00 | NUR ---
ASSISTED TO BED FROM RECLINER. MODERATE ASSIST REQUIRED. CALL LIGHT PLACED IN REACH. BED IN LOW POSITION. BED ALARM ON. WILL MONITOR.
--- NOTE | 2016-10-21 10:30 | NUR ---
FIRST UNIT OF BLOOD INFUSING. SOLUMEDROL AND BENADRYL GIVEN PER ORDER BEFORE BLOOD. WILL CONTINUE TO ASSESS FOR CHANGES THROUGHOUT TRANSFUSION.
--- NOTE | 2016-10-21 10:35 | NUR ---
NUTRIITON MONITORING & EVAL CHART REVIEWED, SPOKE WITH NURSING. REPORTS PT WITH 100% INTAKE BREAKFAST. WILL CONTINUE TO PROVIDE DIET, MONITOR PO INTAKE. RD FOLLOWING
--- NOTE | 2016-10-21 12:30 | NUR ---
REPOSITIONED IN BED FOR LUNCH. DENIES NEEDS AT THIS TIME.
--- NOTE | 2016-10-21 15:00 | NUR ---
UNIT OF BLOOD COMPLETE. NO ADVERSE REACTION NOTED TO BLOOD. WILL CONT TO ASSESS.
--- NOTE | 2016-10-21 15:00 | NUR ---
PT TRANSFERED TO ICU DUE TO POSITIVE ANTIGEN TO CDT.
--- NOTE | 2016-10-21 19:00 | NUR ---
PT HAD BM, PT CLEANED UP WITH WET WARM CLOTHS, PINK PAD AND WHITE CHUX CHANGED, INFORMED PT THAT I WILL BE BACK IN A FEW MINUTES TO DO ASSESSMENT, PT VERBALIZES UNDERSTANDING
--- NOTE | 2016-10-21 19:30 | NUR ---
ASSESSMENT PER FLOW SHEET, VS CONTINUE Q1H, SALINE LOCK IN LEFT WRIST INTACT WITH NO REDNESS OR EDEMA, HAMLIN CATH INTACT DRAINING YELLOW URINE, PT REPORTS FLATUS, SPLINT TO RIGHT WRIST INTACT, PT DENIES NEEDS AT THIS TIME
--- NOTE | 2016-10-21 20:20 | NUR ---
PT WATCHING TV, REQUESTED BANDAID OVER RIGHT THUMB DUE TO A BROKEN NAIL, BANDAID APPLIED, REQUESTED AND SERVED DIET [place] OF [place], PT DENIES FURTHER NEEDS
--- NOTE | 2016-10-21 21:34 | NUR ---
ADM 2100 MEDS PO PER MD ORDERS, SEE EMAR, WITH FRESH H20, PT DENIES FURTHER NEEDS AT THIS TIME
--- NOTE | 2016-10-21 22:30 | NUR ---
PT INSIGHTS ANALYST LIGHT, PT UP TO BEDSIDE COMMODE, HAD LOOSE BROWN BM, PT CLEANED UP, HAMLIN CARE DONE, PT BACK TO BED, OBTAINED VS, PT HAD REMOVED BP CUFF EARLIER, SCD'S REAPPLIED AND WORKING PROPERLY, PT POSITIONED IN BED, BLANKETS APPLIED OVER FEET REQUESTED, PT DENIES FURTHER NEEDS, BED IN LOW POSITION, SIDE RAILS X 2, CALL LIGHT IN REACH
[2016-10-22] VITALS (7 sets, daily range): BP systolic 159–208; BP diastolic 60–73
--- NOTE | 2016-10-22 | NUR ---
PT AWAKE, ASSESSMENT PER FLOW SHEET, VS CONTINUE, PT DENIES NEEDS OR PAIN AT THIS TIME
--- NOTE | 2016-10-22 01:32 | NUR ---
PT COMPOSITION SIDING WORKER LIGHT, SCD'S DISCONNECTED, PT UP TO BEDSIDE COMMODE, PT HAD SMALL LOOSE BROWN BM, PT CLEANED UP WITH WET WIPES, PT BACK TO BED, SCD'S RECONNECTED, PT DENIES FURTHER NEEDS OR PAIN, BED IN LOW POSITION, SIDE RAILS X 2, CALL LIGHT IN REACH
--- NOTE | 2016-10-22 02:11 | NUR ---
PT RESTING WITH EYES CLOSED, RESP QUIET, NO DISTRESS NOTED, LEFT UNDISTURBED AT THIS TIME, VS CONTINUE, SCD'S ON AND WORKING PROPERLY
--- NOTE | 2016-10-22 03:00 | NUR ---
PT AWAKE, VS CONTINUE, I&O'S COLLECTED, PT DENIES NEEDS OR PAIN AT THIS TIME
--- NOTE | 2016-10-22 04:15 | NUR ---
PT AWAKE, PT WEIGHED VIA BEDSCALE, PT DENIES NEEDS OR PAIN, SCD'S CONTINUE AND WORKING PROPERLY, BED IN LOW POSITION, SIDE RAILS X 2, CALL LIGHT IN REACH
--- NOTE | 2016-10-22 04:45 | NUR ---
DR. DILLON PAGED RE: PT TRANSFER FOR ICU BED NEED. NEW ORDER REC'D TO TRANSFER TO MED/SURG.
--- NOTE | 2016-10-22 05:00 | NUR ---
REPORT CALLED TO HERBIE ON MED/SURG. PT TO TRANSFER VIA W/C TO 2223.
[2016-10-22 05:10] LABS: BASOPHILS 0.2 % (0.0-2.0); EOSINOPHILS 2.3 % (0-7); IMMATURE GRANULOCYTES 0.5 % (0-5); LYMPHOCYTES 12.5 % (15-50); MCH 30.2 pg (26.0-34.0); MCHC 33.3 g/dL (31.0-37.0); MONOCYTES 7.4 % (2-11); NEUTROPHILS 77.1 % (40-80); PLATELET COUNT 129 10x3/uL (130-400); RDW 15.5 % (11.5-14.5); WBC 6.5 10x3/uL (4.8-10.8)
[2016-10-22 05:23] LABS: HEMATOCRIT 29.7 % (36.0-48.0); HEMOGLOBIN 9.9 g/dL (12-16); MCV 90.5 fL (80.0-100.0); RBC 3.28 10x6/uL (4.00-5.40)
[2016-10-22 05:29] LABS: ALBUMIN 3.2 g/dL (3.4-5.0); ANION GAP 12.9 mmol/L (8-16); BILIRUBIN - TOTAL 0.33 mg/dL (0.2-1.3); CALCIUM 8.5 mg/dL (8.5-10.1); CARBON DIOXIDE 26.5 mmol/L (21.0-32.0); CREATININE - SERUM 1.8 mg/dL (0.6-1.3); POTASSIUM - SERUM 4.4 mmol/L (3.5-5.1); PROTEIN - SERUM 6.6 g/dL (6.4-8.2)
--- NOTE | 2016-10-22 08:00 | NUR ---
ASSESSMENT PER FLOW SHEET.PT WITHOUT DISTRESS.CONTACT ISOLATION MAINTAINED.FALL PREVENTION INITIATED.CALL LIGHT IN REACH.
--- NOTE | 2016-10-22 13:00 | NUR ---
HAMLIN DCD WITH 350CC OF URINE IN BAG.PT TOLERATED WELL.CATH TIP INTACT.
--- NOTE | 2016-10-22 13:04 | NUR ---
CM REASSESSMENT NOTE: CM SPOKE WITH PATIENTS NURSE (NURA) AT [facility] REGARDING PATIENTS FALLS. PATIENT HAD STATED TO NURSE LAMONT HERE AT HOSPITAL THAT SHE FALLS ALOT WHEN AT HOME. NURA AT [facility] EXPRESSED THAT THEY WILL MONITOR HER MORE OFTEN THAN USUAL. PATIENT LIVES WITH HER SPOUSE PER NURA. CM CALLED BACK TO [facility] AND ASKED IF PATIENT HAD A WALKER AND WAS TOLD SHE DID. CM WILL CONTINUE TO FOLLOW PATIENT WITH D/C NEEDS AND PLANS.
--- NOTE | 2016-10-22 14:00 | NUR ---
HAS VOIDED SMALL AMOUNT WITH M.BACK TO BED WITH ASIST OF SUPERVISOR SEWING DEPARTMENT.
--- NOTE | 2016-10-22 14:12 | NUR ---
REPORT CALLED TO AYDE AT [facility].
--- NOTE | 2016-10-22 14:13 | NUR ---
CM REASSESSMENT NOTE: PATIENT IS DISCHARGING TO [facility] TODAY BY FACILITY VAN TO HER ASSSITED LIVING APT.
--- NOTE | 2016-10-22 14:27 | NUR ---
IV DCD WITH CATH INTAT.DISCHARGE INSTRUCTIONS,STATES UNDERSTANDING.LEFT UNIT VIA WHEELCHAIR.
== END 2016-10-22 14:28 | disposition home or self-care (01) | DRG 812 ==
LOC: D.ER 15:36 → D.CVICU 18:04 → D.ICU 10-21 16:15 → D.MS 10-22 05:13
PROVIDERS: Emergency Medicine; Family Medicine; ADMIT Family Medicine
PROC: 0HQ0XZZ Repair Scalp Skin, External Approach (ICD-10-PCS; principal; 2016-10-18)
DX: D62 Acute posthemorrhagic anemia (principal); S01.01XA Laceration without foreign body of scalp, initial encounter; W19.XXXA Unspecified fall, initial encounter; S06.2X0A Diffuse traumatic brain injury without loss of consciousness, initial encounter; I25.10 Atherosclerotic heart disease of native coronary artery without angina pectoris; I12.9 Hypertensive chronic kidney disease with stage 1 through stage 4 chronic kidney disease, or unspecified chronic kidney disease; N18.9 Chronic kidney disease, unspecified; E78.5 Hyperlipidemia, unspecified; I48.0 Paroxysmal atrial fibrillation; R00.1 Bradycardia, unspecified; R94.31 Abnormal electrocardiogram [ECG] [EKG]; M25.531 Pain in right wrist; T80.92XA Unspecified transfusion reaction, initial encounter; Y84.8 Other medical procedures as the cause of abnormal reaction of the patient, or of later complication, without mention of misadventure at the time of the procedure; Z95.1 Presence of aortocoronary bypass graft

== ENCOUNTER 2016-11-19 14:25 | Emergency (ER) | payer MEDICARE ==
[2016-10-19 10:51] VITALS: BMI 33.4
[~2016-11-19 14:25] MED LIST changes: +BUPROPION HCL100 MG PO; +MYSOLINE250 MG PO; +ZYRTEC10 MG PO
== END 2016-11-19 17:15 | disposition home or self-care (01) ==
LOC: D.ER 14:25
DX: M25.512 Pain in left shoulder (principal); W19.XXXA Unspecified fall, initial encounter; Y93.89 Activity, other specified; Y92.89 Other specified places as the place of occurrence of the external cause; I48.91 Unspecified atrial fibrillation; Z95.1 Presence of aortocoronary bypass graft; K21.9 Gastro-esophageal reflux disease without esophagitis; E87.1 Hypo-osmolality and hyponatremia; G47.00 Insomnia, unspecified

== ENCOUNTER 2017-01-21 20:58 | Emergency (ER) | payer MEDICARE ==
[2016-10-19 10:51] VITALS: BMI 33.4
[2017-01-21 21:41] LABS: BASOPHILS 0.7 % (0-2); EOSINOPHILS 3.3 % (0-7); HEMATOCRIT 32.9 % (36.0-48.0); HEMOGLOBIN 10.9 g/dL (12-16); IMMATURE GRANULOCYTES 0.4 % (0-5); LYMPHOCYTES 28.5 % (15-50); MCH 32.3 pg (26.0-34.0); MCHC 33.1 g/dL (31.0-37.0); MCV 97.6 fL (80.0-100.0); MEAN PLATELET VOLUME 11.1 fL (7.4-10.4); MONOCYTES 7.7 % (2-11); NEUTROPHILS 59.4 % (40-80); PLATELET COUNT 129 10x3/uL (130-400); RBC 3.37 10x6/uL (4.00-5.40); RDW 13.7 % (11.5-14.5); WBC 4.5 10x3/uL (4.8-10.8)
[2017-01-21 22:03] LABS: APTT 29.3 SECONDS (22.8-39.4); INR 1.07 (0.85-1.17); PROTIME 13.8 SECONDS (11.6-15.0)
[2017-01-21 22:05] LABS: ALBUMIN 3.6 g/dL (3.4-5.0); ANION GAP 11.5 mmol/L (8-16); BILIRUBIN - TOTAL 0.31 mg/dL (0.2-1.3); CALCIUM 8.8 mg/dL (8.5-10.1); POTASSIUM - SERUM 4.5 mmol/L (3.5-5.1); PROTEIN - SERUM 7.1 g/dL (6.4-8.2)
== END 2017-01-22 01:49 | disposition home or self-care (01) ==
LOC: D.ER 20:58
PROVIDERS: Emergency Medicine
DX: S00.03XA Contusion of scalp, initial encounter (principal); W01.0XXA Fall on same level from slipping, tripping and stumbling without subsequent striking against object, initial encounter; Y93.89 Activity, other specified; Y92.129 Unspecified place in nursing home as the place of occurrence of the external cause; E86.0 Dehydration; E11.9 Type 2 diabetes mellitus without complications; I10 Essential (primary) hypertension; K21.9 Gastro-esophageal reflux disease without esophagitis; R00.1 Bradycardia, unspecified; I44.0 Atrioventricular block, first degree

== ENCOUNTER 2017-04-05 17:49 | Observation (INO) | payer MEDICARE ==
[~2017-04-05] VITALS: Ht 154.9 cm; Wt 79.4 kg
[2017-04-06 09:11] VITALS: Ht 154.9 cm; Wt 79.4 kg
[2017-04-08 08:29] VITALS: BP 156/70
== END 2017-04-08 10:29 | disposition home or self-care (01) ==
LOC: D.ER 17:49 → OBSVTIME 23:06 → D.M2 23:06
PROVIDERS: ADMIT Family Medicine
DX: S01.01XA Laceration without foreign body of scalp, initial encounter (principal); W19.XXXA Unspecified fall, initial encounter; Z91.81 History of falling; E11.43 Type 2 diabetes mellitus with diabetic autonomic (poly)neuropathy; E78.5 Hyperlipidemia, unspecified; I48.0 Paroxysmal atrial fibrillation; I25.10 Atherosclerotic heart disease of native coronary artery without angina pectoris; Z95.5 Presence of coronary angioplasty implant and graft; Z95.1 Presence of aortocoronary bypass graft; Z86.73 Personal history of transient ischemic attack (TIA), and cerebral infarction without residual deficits; I95.1 Orthostatic hypotension; I10 Essential (primary) hypertension; S43.005A Unspecified dislocation of left shoulder joint, initial encounter

== ENCOUNTER 2017-04-28 16:30 | Emergency (ER) | payer MEDICARE ==
[2017-04-06 09:11] VITALS: BMI 33.0
[~2017-04-28 16:30] MED LIST changes: -BUPROPION HCL100 MG PO; +WELLBUTRIN XL150 M1 PO
[2017-04-28 17:21] LABS: EOSINOPHILS 6.6 % (0-7); HEMATOCRIT 29.6 % (36.0-48.0); HEMOGLOBIN 9.9 g/dL (12-16); IMMATURE GRANULOCYTES 0.6 % (0-5); LYMPHOCYTES 18.7 % (15-50); MCH 32.5 pg (26.0-34.0); MCHC 33.4 g/dL (31.0-37.0); MEAN PLATELET VOLUME 10.1 fL (7.4-10.4); MONOCYTES 8.7 % (2-11); NEUTROPHILS 64.4 % (40-80); PLATELET COUNT 151 10x3/uL (130-400); RBC 3.05 10x6/uL (4.00-5.40); RDW 13.3 % (11.5-14.5)
[2017-04-28 17:31] LABS: APTT 29.5 SECONDS (22.8-39.4); INR 0.99 (0.85-1.17); PROTIME 12.9 SECONDS (11.6-15.0)
[2017-04-28 17:32] LABS: APPEARANCE CLEAR (CLEAR); BILIRUBIN NEGATIVE (NEGATIVE); COLOR YELLOW (YELLOW); GLUCOSE NEGATIVE (NEGATIVE); KETONE NEGATIVE (NEGATIVE); NITRITE POSITIVE (NEGATIVE); PROTEIN 1+ mg/dL (NEGATIVE); UROBILINOGEN NORMAL (NORMAL)
[2017-04-28 17:34] LABS: BACTERIA MANY /hpf (NONE SEEN); EPITHELIAL CELLS 0-5 /hpf (0-5); RED CELLS - URINE 0-5 /hpf (0-5)
[2017-04-28 17:36] LABS: BILIRUBIN - TOTAL 0.19 mg/dL (0.2-1.3); CALCIUM 8.3 mg/dL (8.5-10.1); CARBON DIOXIDE 28.1 mmol/L (21.0-32.0); CREATININE - SERUM 1.8 mg/dL (0.6-1.3); POTASSIUM - SERUM 4.1 mmol/L (3.5-5.1); PROTEIN - SERUM 6.7 g/dL (6.4-8.2)
[2017-04-28 17:43] LABS: MAGNESIUM - SERUM 1.7 mg/dL (1.8-2.4)
[2017-06-24] MEDS ORDERED: BACTROBAN NASAL1 GM NASAL (09:55)
[2017-06-24] MEDS ORDERED: BAYER CHEWABLE81 MG PO (09:57)
[2017-06-24] MEDS ORDERED: ZYRTEC10 MG PO (10:02)
[2017-06-24] MEDS ORDERED: CO Q-1030 MG PO (10:03)
[2017-06-24] MEDS ORDERED: ISOSORBIDE DINI20 MG PO (10:04)
[2017-06-24] MEDS ORDERED: MULTIPLE VITAMI1 TA1 PO (10:04)
[2017-06-24] MEDS ORDERED: RESTORIL15 MG PO (10:06)
[2017-06-24] MEDS ORDERED: MYSOLINE250 MG PO (10:06)
[2017-06-24] MEDS ORDERED: OXYBUTYNIN CHLOR5 MG PO (10:08)
[2017-06-24] MEDS ORDERED: ZANAFLEX2 M1 PO (10:08)
[2017-06-24] MEDS ORDERED: COLACE100 MG PO (10:10)
[2017-06-24] MEDS ORDERED: NORMODYNE / TR100 MG PO (10:10)
[2017-06-24] MEDS ORDERED: HYDRALAZINE HCL50 MG PO (10:11)
[2017-06-24] MEDS ORDERED: GLUCOTROL 5 MG T5 MG PO (10:11)
== END 2017-04-28 23:01 | disposition home or self-care (01) ==
LOC: D.ER 16:30
PROVIDERS: Nurse Practitioner Family
DX: S06.0X0A Concussion without loss of consciousness, initial encounter (principal); W19.XXXA Unspecified fall, initial encounter; Y93.89 Activity, other specified; Y92.129 Unspecified place in nursing home as the place of occurrence of the external cause; S00.83XA Contusion of other part of head, initial encounter; N39.0 Urinary tract infection, site not specified; E11.9 Type 2 diabetes mellitus without complications

== ENCOUNTER 2017-06-02 11:53 | Day surgery (SDC) | payer MEDICARE ==
[~2017-06-02] VITALS: Ht 154.9 cm; Wt 75.0 kg
[2017-06-02 12:22] VITALS: BP 196/97; Ht 154.9 cm; Wt 75.0 kg
--- NOTE | 2017-06-02 15:00 | NUR ---
ALERT AND ORIENTED. DISHCARGE INSTRUCTIONS GIVEN, VOICED UNDERSTANDING. DISCHARGED TO [facility] HERE TO PICK HER UP.
[2017-06-24] MEDS ORDERED: BACTROBAN NASAL1 GM NASAL (09:55)
[2017-06-24] MEDS ORDERED: BAYER CHEWABLE81 MG PO (09:57)
[2017-06-24] MEDS ORDERED: ZYRTEC10 MG PO (10:02)
[2017-06-24] MEDS ORDERED: CO Q-1030 MG PO (10:03)
[2017-06-24] MEDS ORDERED: ISOSORBIDE DINI20 MG PO (10:04)
[2017-06-24] MEDS ORDERED: MULTIPLE VITAMI1 TA1 PO (10:04)
[2017-06-24] MEDS ORDERED: RESTORIL15 MG PO (10:06)
[2017-06-24] MEDS ORDERED: MYSOLINE250 MG PO (10:06)
[2017-06-24] MEDS ORDERED: OXYBUTYNIN CHLOR5 MG PO (10:08)
[2017-06-24] MEDS ORDERED: ZANAFLEX2 M1 PO (10:08)
[2017-06-24] MEDS ORDERED: NORMODYNE / TR100 MG PO (10:10)
[2017-06-24] MEDS ORDERED: COLACE100 MG PO (10:10)
[2017-06-24] MEDS ORDERED: HYDRALAZINE HCL50 MG PO (10:11)
[2017-06-24] MEDS ORDERED: GLUCOTROL 5 MG T5 MG PO (10:11)
== END 2017-06-02 15:00 | disposition home or self-care (01) ==
LOC: D.OPS 11:53
DX: M70.72 Other bursitis of hip, left hip (principal); I25.10 Atherosclerotic heart disease of native coronary artery without angina pectoris; Z95.1 Presence of aortocoronary bypass graft; I25.2 Old myocardial infarction; I10 Essential (primary) hypertension; E11.9 Type 2 diabetes mellitus without complications; M19.90 Unspecified osteoarthritis, unspecified site; K21.9 Gastro-esophageal reflux disease without esophagitis; Z01.812 Encounter for preprocedural laboratory examination; Z79.02 Long term (current) use of antithrombotics/antiplatelets; Z79.891 Long term (current) use of opiate analgesic; Z79.899 Other long term (current) drug therapy; Z88.1 Allergy status to other antibiotic agents; Z88.2 Allergy status to sulfonamides; Z88.8 Allergy status to other drugs, medicaments and biological substances

== ENCOUNTER 2017-06-11 18:17 | Emergency (ER) | payer MEDICARE ==
[2017-06-02 12:22] VITALS: BMI 31.2
[2017-06-11 22:41] LABS: BASOPHILS 0.7 % (0-2); EOSINOPHILS 3.1 % (0-7); HEMATOCRIT 31.9 % (36.0-48.0); HEMOGLOBIN 10.5 g/dL (12-16); IMMATURE GRANULOCYTES 0.3 % (0-5); LYMPHOCYTES 15.5 % (15-50); MCH 32.6 pg (26.0-34.0); MCHC 32.9 g/dL (31.0-37.0); MCV 99.1 fL (80.0-100.0); MEAN PLATELET VOLUME 11.3 fL (7.4-10.4); NEUTROPHILS 71.4 % (40-80); PLATELET COUNT 128 10x3/uL (130-400); RBC 3.22 10x6/uL (4.00-5.40); RDW 13.9 % (11.5-14.5); WBC 5.8 10x3/uL (4.8-10.8)
[2017-06-11 22:57] LABS: ANION GAP 10.3 mmol/L (8-16); CALCIUM 8.2 mg/dL (8.5-10.1); CARBON DIOXIDE 28.8 mmol/L (21.0-32.0); CREATININE - SERUM 1.7 mg/dL (0.6-1.3); POTASSIUM - SERUM 4.1 mmol/L (3.5-5.1); TROPONIN-I 0.023 ng/mL (0.000-0.060)
[2017-06-24] MEDS ORDERED: BACTROBAN NASAL1 GM NASAL (09:55)
[2017-06-24] MEDS ORDERED: BAYER CHEWABLE81 MG PO (09:57)
[2017-06-24] MEDS ORDERED: ZYRTEC10 MG PO (10:02)
[2017-06-24] MEDS ORDERED: CO Q-1030 MG PO (10:03)
[2017-06-24] MEDS ORDERED: ISOSORBIDE DINI20 MG PO (10:04)
[2017-06-24] MEDS ORDERED: MULTIPLE VITAMI1 TA1 PO (10:04)
[2017-06-24] MEDS ORDERED: MYSOLINE250 MG PO (10:06)
[2017-06-24] MEDS ORDERED: RESTORIL15 MG PO (10:06)
[2017-06-24] MEDS ORDERED: ZANAFLEX2 M1 PO (10:08)
[2017-06-24] MEDS ORDERED: OXYBUTYNIN CHLOR5 MG PO (10:08)
[2017-06-24] MEDS ORDERED: COLACE100 MG PO (10:10)
[2017-06-24] MEDS ORDERED: NORMODYNE / TR100 MG PO (10:10)
[2017-06-24] MEDS ORDERED: HYDRALAZINE HCL50 MG PO (10:11)
[2017-06-24] MEDS ORDERED: GLUCOTROL 5 MG T5 MG PO (10:11)
== END 2017-06-12 02:29 | disposition home or self-care (01) ==
LOC: D.ER 18:17
PROVIDERS: Emergency Medicine
DX: R51 Headache (principal); I10 Essential (primary) hypertension; E11.9 Type 2 diabetes mellitus without complications

== ENCOUNTER → 2017-06-18 19:00 | Outpatient (CLI) | payer MEDICARE ==
[2017-06-02 12:22] VITALS: BMI 31.2
[~2017-06-18 19:00] MED LIST changes: +BACTROBAN NASAL1 GM NASAL; +BAYER CHEWABLE81 MG PO; +CELEXA40 MG PO; +COLACE100 MG PO; +GLUCOTROL 5 MG T5 MG PO; +MULTIPLE VITAMI1 TA1 PO; +OXYBUTYNIN CHLOR5 MG PO; +PERCOCET 10/3251 TA1 PO; +ZANAFLEX2 M1 PO
== END | disposition home or self-care (01) ==
LOC: D.LABREF 19:00
DX: M25.511 Pain in right shoulder (principal); Z11.2 Encounter for screening for other bacterial diseases

== ENCOUNTER 2017-06-28 06:24 | Inpatient (IN) | payer MEDICARE ==
[2017-06-24 10:18] LABS: BASOPHILS 0.4 % (0-2); EOSINOPHILS 3.7 % (0-7); HEMATOCRIT 31.2 % (36.0-48.0); HEMOGLOBIN 10.2 g/dL (12-16); IMMATURE GRANULOCYTES 1.1 % (0-5); LYMPHOCYTES 16.5 % (15-50); MCH 32.5 pg (26.0-34.0); MCHC 32.7 g/dL (31.0-37.0); MCV 99.4 fL (80.0-100.0); MEAN PLATELET VOLUME 11.2 fL (7.4-10.4); MONOCYTES 8.7 % (2-11); NEUTROPHILS 69.6 % (40-80); PLATELET COUNT 151 10x3/uL (130-400); RBC 3.14 10x6/uL (4.00-5.40); RDW 13.8 % (11.5-14.5); WBC 4.6 10x3/uL (4.8-10.8)
[2017-06-24 10:22] LABS: ANION GAP 15.7 mmol/L (8-16); APTT 28.3 SECONDS (22.8-39.4); CALCIUM 8.1 mg/dL (8.5-10.1); CARBON DIOXIDE 27.3 mmol/L (21.0-32.0); CREATININE - SERUM 1.8 mg/dL (0.6-1.3); INR 1.07 (0.85-1.17); PROTIME 13.5 SECONDS (11.6-15.0)
[2017-06-24 11:51] LABS: APPEARANCE CLEAR (CLEAR); BACTERIA MODERATE /hpf (NONE SEEN); BILIRUBIN NEGATIVE (NEGATIVE); COLOR YELLOW (YELLOW); EPITHELIAL CELLS OCC /hpf (0-5); GLUCOSE NEGATIVE (NEGATIVE); KETONE NEGATIVE (NEGATIVE); NITRITE NEGATIVE (NEGATIVE); PROTEIN 1+ mg/dL (NEGATIVE); RED CELLS - URINE 0-5 /hpf (0-5); SPECIFIC GRAVITY 1.005 (1.005-1.020); UROBILINOGEN NORMAL (NORMAL)
[2017-06-28] VITALS (8 sets, daily range): BP systolic 128–216; BP diastolic 64–78; BMI 33.0
[~2017-06-28] VITALS: Ht 152.4 cm; Wt 76.7 kg
[~2017-06-28 06:24] MED LIST changes: -CELEXA40 MG PO; -PERCOCET 10/3251 TA1 PO
[2017-06-28 07:31] LABS: APPEARANCE CLEAR (CLEAR); BILIRUBIN NEGATIVE (NEGATIVE); COLOR YELLOW (YELLOW); GLUCOSE NEGATIVE (NEGATIVE); KETONE NEGATIVE (NEGATIVE); NITRITE NEGATIVE (NEGATIVE); PROTEIN 3+ mg/dL (NEGATIVE); UROBILINOGEN NORMAL (NORMAL)
[2017-06-28 07:35] LABS: BACTERIA FEW /hpf (NONE SEEN); EPITHELIAL CELLS 0-5 /hpf (0-5); RED CELLS - URINE 0-5 /hpf (0-5)
[2017-06-28] MEDS ORDERED: ULTRAM50 MG PO (07:42)
[2017-06-28] MEDS ORDERED: MACROBID100 MG PO (07:42)
[2017-06-28] MEDS ORDERED: CELEXA40 MG PO (07:43)
--- NOTE | 2017-06-28 11:31 | NUR ---
CONSULTED ANETHESIA REGARDING ELEVATED BP WITH SYSTOLIC GREATER THAN 200. VERBAL ORDERS GIVEN TO GIVEN HYDRALAZINE 5MG Q5 MIN WITH MAX OF 20MG. DR MA AT BEDSIDE. WILL CONTINUE TO MONITOR.
--- NOTE | 2017-06-28 12:23 | OP ---
PATIENT NAME: ADRIANA MARCELINO MEDICAL RECORD: [id number] :39 LOCATION:[facility]- ADMISSION DATE:06/28/17 SURGEON: CANDIDA FULLER MD DATE OF OPERATION: 06/28/2017 PREOPERATIVE DIAGNOSIS: Severe rotator cuff arthropathy of the right shoulder. POSTOPERATIVE DIAGNOSIS: Severe rotator cuff arthropathy of the right shoulder. PROCEDURE: Right reverse total shoulder arthroplasty using the [employer] system. SURGEON: Candida Fuller MD ANESTHESIA: General. INTRAOPERATIVE COMPLICATIONS: None. SUMMARY OF PATHOLOGIC FINDINGS: The patient had severe rotator cuff arthropathy with almost autofusion of the acromion to the humeral head. IMPLANTS USED: As above, size 6 Arthrex [employer] Revers total shoulder arthroplasty, +2 right 36 metaphyseal component, 36+3 small head, and a small glenoid baseplate. OPERATIVE SUMMARY IN DETAIL: After obtaining the appropriate preoperative orthopedic surgery consent as well as anesthetic consultation, evaluation and clearance, the patient was brought to the operating room and placed on the operating table in supine position. After general laryngeal mask airway was administered, the patient was placed in a beach chair position. All pressure points were padded. She was held firmly to the operating table using vacuum pack suction system. Right upper extremity and shoulder were then prepped and draped in routine sterile fashion. The arm was held with the [employer] arm holding device. Deltopectoral incision was taken down. The cephalic vein was seen and protected throughout the case. Initially, the humeral head was dissected free with a substantial amount of adhesions to the acromion. Proximal humeral cut was made. A cut guide was placed on the face of the humeral cut and the glenoid was approached. Circumferential labrectomy was followed by center seating of the pin followed by standard reaming. Excess bone and osteophytes were removed. The small baseplate was seated with a very good central screw and superior and inferior locking screws. Glenosphere was put into place. Attention was then turned to the proximal humerus. Proximal reaming was followed by serial and sequential broaching, size 6 was the most appropriate. A size 6 x [address] Trial was undertaken, the +3 was the most appropriate. The +3 was reduced, taken through range of motion and found to be adequate in all planes. Wound was copiously irrigated. Vitagel was then placed into the wound cavity and a small amount was left for the incision site itself. The wound was closed with #1 Vicryl followed by 2-0 Vicryl and skin nery. Vitagel was then placed on the incision itself and sterile dressings were applied. The patient was awakened and taken to the recovery room in stable condition. All final instrument and sponge counts were correct. TRANSINT:[id number] Voice Confirmation ID: [id number] DOCUMENT ID: [id number] OPERATIVE REPORT [id number] ADRIANA MARCELINO MD, CANDIDA BARBER at 1223 CC: [id number] DICTATION DATE: 06/28/17 1105 CENTRAL SERVICE SUPPLY DISTRIBUTOR: 06/28/17 1122 ADM IN [facility] [address] [place] [address]
--- NOTE | 2017-06-28 12:40 | NUR ---
UPON TRANSFERRING PATIENT TO ROOM 2212, PT COMPLAINED OF A HEADACHE ON THE RIGHT SIDE WITH BACK PAIN. REPORTED TO DR ROY AND DR FULLER. DR FULLER VERBAL ORDERS TO GIVE HOME MEDICATIONS NOW. GIVE MORNING MEDICATIONS NOW. THIS WAS COMMUNICATED TO SHRAVAN YUNG RN. NO NEW ORDERS RECEIVED FROM ANESTHESIA AT S TIME.
--- NOTE | 2017-06-28 12:40 | NUR ---
PATIENT TO ROOM AT THIS TIME. IV INTACT. VS STABLE. BP HIGH. WAS GIVEN BP MEDS IN RR AND BP IS LOWER NOW. BSCDS ON AND WORKING. SHOULDER DRESSING CDI. ICE PACK ON. CALL LIGHT WITHIN REACH.
--- NOTE | 2017-06-28 13:45 | NUR ---
PATIENT IN BED WITH IV INTACT. NO COMPLAINTS. BSCDS ON. STATES SHE HAS A HEAD ACHE BUT FALLS ASLEEP IMMEDIATELY WHEN NOT SPOKEN TO. TOLERATED CLEAR LIQUIDS. CALL LIGHT WITHIN REACH. VS STABLE. BP MORE STABLE.
--- NOTE | 2017-06-28 15:50 | NUR ---
PATIENT IN BED WITH NO COMPLAINTS. IV INTACT. VS STABLE. CALL DIONY ATKINSON.
--- NOTE | 2017-06-28 18:10 | NUR ---
PATIENT IN BED WITH EYES CLOSED RESTING QUIETLY. IV INTACT. BSCDS ON AND WORKING. CALL LIGHT WITHIN REACH.
--- NOTE | 2017-06-28 19:20 | NUR ---
RECIEVED SHIFT REPORT. PT IS LYING IN BED. ALERT AND ORIENTED AND ABLE TO VERBALIZE NEEDS. IV IS PATENT AND FLUIDS ARE RUNNING PER ORDER. O2 @ 2 PER NASAL CANNULA. PT IS AMBULATORY WITH ASSISTANCE. DRESSING TO RIGHT SHOULDER C/D/I AND SLING ON. SCD'S ON. PT STATES PAIN IS 7/10. NO NEEDS ARE VERBALIZED AT THIS TIME. WILL CONTINUE TO MONITOR. SIDE RAILS ARE UP X 3. BED IS IN LOWEST POSITION. BED ALARM IS ON FOR SAFETY. CALL LIGHT IS WITHIN REACH.
--- NOTE | 2017-06-28 20:30 | NUR ---
SHIFT ASSESSMENT COMPLETED. NIGHT MEDS GIVEN WITH NO PROBLEMS. PT ASSITED TO BEDSIDE COMMODE AND BACK TO BED WITH 2 PERSON ASSIST. NO FURTHER NEEDS AT THIS TIME. WILL MONITOR. SIDE RAILS X 2. BED LOW. BED ALARM ON. CALL LIGHT IN REACH.
[2017-06-29] VITALS: BP 162/72
[2017-06-29 04:00] VITALS: BP 144/70
--- NOTE | 2017-06-29 04:53 | NUR ---
PT ASSISTED TO VOID AGAIN. UNABLE TO OBTAIN URINE FOR CULTURE DUETO STOOL GETTING IN HAT. WILL ATTEMPT TO OBTAIN WITH NEXT VOID OR PASS ON TO NURSE NEXT SHIFT. SIDE RAILS X 2. BED LOW. BED ALARM PLACED BACK ON. CALL LIGHT IN REACH.
[2017-06-29 06:40] LABS: HEMATOCRIT 28.8 % (36.0-48.0); HEMOGLOBIN 9.3 g/dL (12-16); MCH 32.7 pg (26.0-34.0); MCHC 32.3 g/dL (31.0-37.0); MCV 101.4 fL (80.0-100.0); MEAN PLATELET VOLUME 11.2 fL (7.4-10.4); RBC 2.84 10x6/uL (4.00-5.40); RDW 14.3 % (11.5-14.5); WBC 9.7 10x3/uL (4.8-10.8)
--- NOTE | 2017-06-29 07:00 | NUR ---
REPORT RECIEVED ASSUMED CARE. PATIENT IN BED WITH IV INTACT. NO COMPLAINTS. CALL LIGHT WITHIN REACH.
--- NOTE | 2017-06-29 07:04 | CN ---
PATIENT NAME:ADRIANA MARCELINO MEDICAL RECORD: [id number] : 38 LOCATION:D.MS [facility] ADMIT DATE: 06/28/17 ACCOUNT: [id number] CONSULTING PHYSICIAN: CANDIDA DILLON MD REFERRING PHYSICIAN: CANDIDA FULLER MD DATE OF CONSULTATION: 06/28/2017 REASON FOR CONSULTATION: Medical management. HISTORY OF PRESENT ILLNESS: The patient is a 77-year-old female who had been admitted by Dr. Fuller today for right shoulder replacement. The patient has been a patient of [facility] for many years. PAST MEDICAL HISTORY: Significant that she has had a history of having atrial fibrillation. She has also had depression, hypertension, cardiovascular disease, gastroesophageal reflux, diabetes, hypertension, hypokalemia, morbid obesity, idiopathic peripheral autonomic neuropathy, arteriosclerotic heart disease, chronic kidney disease. FAMILY HISTORY: Mother of CVA. Father had CHF, also had arteriosclerotic heart disease. SOCIAL HISTORY: The patient is . She is retired, currently lives in an assisted living community. She denies any ethanol, tobacco use or abuse. PAST SURGICAL HISTORY: She has had breast reduction in 1983. She has had carpal tunnel bilateral in 1989; had a tummy tuck in 1984; rotator cuff repair in 1989, both right and left. MEDICATIONS: Include amiodarone 200 mg 1 p.o. daily; Wellbutrin 150 mg 1 p.o. every day; calcium with vitamin D 600 mg daily; Plavix 75 mg daily; Coenzyme Q10 30 mg once a day; Colace 100 mg b.i.d.; Dexilant 60 mg every morning; donepezil 5 mg 1 p.o. daily; ferrous sulfate 325 p.o. b.i.d.; gabapentin 300 mg t.i.d.; Glucotrol 5 mg XL 1 p.o. every day; hydralazine 50 mg p.o. t.i.d.; isosorbide dinitrate 20 mg one every 8 hours; labetalol 100 mg p.o. b.i.d.; Nitrostat 0.4 mg sublingual every 5 minutes p.r.n. chest pain; oxybutynin chloride 5 mg q.i.d.; pravastatin 40 mg daily; primidone 250 p.o. at bedtime; temazepam 15 mg p.o. at bedtime; tizanidine 2 mg p.o. every 8 hours p.r.n. muscle spasm; tramadol 50 mg 1 to 2 every 6 hours p.r.n. severe pain. ALLERGIES: BACTRIM, CELEBREX, HEMOCYTE PLUS, ISOSORBIDE AND SULFA. HABITS: None. REVIEW OF SYSTEMS: GENERAL: She denies any headaches, seizure or syncope. Denies change in visual or auditory acuity. PULMONARY: She denies any shortness of breath, cough, congestion, history of TB, asthma or bronchitis. CARDIOVASCULAR: No chest pain, palpitation, PND, or orthopnea. GASTROINTESTINAL: No chronic nausea, vomiting, melena or hematochezia. GENITOURINARY: No urinary frequency or dysuria. PHYSICAL EXAMINATION: VITAL SIGNS: Temperature 98.7, blood pressure 120/64, respirations were 18, CONSULT REPORT [id number] ADRIANA MARCELINO Khoi pulse was 98. She is alert. She is oriented times 3. HEENT: Head is normocephalic. No lesions. Ears; TMs clear. Eyes; pupils are equal, round and reactive to light. Extraocular movements are intact. Her nasal cavity, oral cavity, and oropharynx is clear. NECK: Supple. There is no adenopathy. HEART: Has a regular rate. No murmurs, gallops or rubs. LUNGS: Clear. EXTREMITIES: The patient does have a right arm sling placed. Pressure dressing over the right anterior aspect of the right shoulder. ABDOMEN: Soft. Bowel sounds are full. LOWER EXTREMITIES: Have no edema. LABORATORY DATA: Preoperatively, she had a white count of 4.6, hemoglobin 10, hematocrit 31.2 and platelets were 151. Sodium 137, potassium 4, chloride is 98, CO2 is 27, BUN is 19, creatinine is 1.8, glucose is 153. INR is 1.07. Urinalysis showed 10 to 25 wbc's per high powered field. ASSESSMENT: Status post right shoulder repair, history of hypertension, atrial fibrillation, arteriosclerotic heart disease, diabetes mellitus, peripheral neuropathy, tremor, urinary tract infection. PLAN: We will culture the patient's urine. Also, it would be suggested to the nursing staff that they should assist the patient with eating since she is right-handed. We will continue her current medications and follow along with you. Thanks for the consultation. TRANSINT:[id number] Voice Confirmation ID: [id number] DOCUMENT ID: [id number] CANDIDA DILLON MD at 0704 CC: [id number] DICTATION DATE: 06/28/171743 QUICK MIXER OPERATOR: 06/28/172040 ADM IN [facility] [address] [place] [address]
[2017-06-29 08:45] VITALS: BP 113/93
[2017-06-29 12:38] VITALS: Ht 152.4 cm; Wt 76.7 kg
[2017-06-29 12:41] VITALS: BP 173/62
[2017-06-29 16:45] VITALS: BP 187/50
--- NOTE | 2017-06-29 18:45 | NUR ---
PATIENT IN BED WITH IV INTACT. NO COMPLAINTS AT THIS TIME. CALL LIGHT WITHIN REACH.
--- NOTE | 2017-06-29 19:25 | NUR ---
RECIEVED SHIFT REPORT. PT IS LYING IN BED. ALERT AND ORIENTED AND ABLE TO VERBALIZE NEEDS. IV IS PATENT AND FLUIDS ARE RUNNING PER ORDER. SCD'S ON. O2 @ 2 PER NASAL CANNULA. PT IS AMBULATORY WITH ASSISTANCE. DRESSING TO RIGHT SHOULDER C/D/I AND SLING ON. PT STATES PAIN IS 10/10. DAY SHIFT NURSE TO BRING A PAIN PILL. NO NEEDS ARE VERBALIZED AT THIS TIME. WILL CONTINUE TO MONITOR. SIDE RAILS ARE UP X 2. BED IS IN LOWEST POSITION. BED ALARM IS ON FOR SAFETY. CALL LIGHT IS WITHIN REACH.
[2017-06-29 20:00] VITALS: BP 144/57
--- NOTE | 2017-06-29 20:27 | NUR ---
SHIFT ASSESSMENT COMPLETED. NIGHT MEDS GIVEN WITH NO PROBLEMS. NO NEEDS ARE VOICED. WILL MONITOR. SIDE RAILS X 2. BED LOW. BED ALARM ON. CALL LIGHT IN REACH.
[2017-06-30] VITALS: BP 138/55
[2017-06-30 06:14] LABS: BASOPHILS 0.4 % (0-2); EOSINOPHILS 0.7 % (0-7); HEMATOCRIT 25.4 % (36.0-48.0); HEMOGLOBIN 8.4 g/dL (12-16); IMMATURE GRANULOCYTES 0.3 % (0-5); LYMPHOCYTES 10.2 % (15-50); MCH 32.8 pg (26.0-34.0); MCHC 33.1 g/dL (31.0-37.0); MEAN PLATELET VOLUME 11.1 fL (7.4-10.4); MONOCYTES 9.8 % (2-11); NEUTROPHILS 78.6 % (40-80); PLATELET COUNT 140 10x3/uL (130-400); RBC 2.56 10x6/uL (4.00-5.40); RDW 14.4 % (11.5-14.5); WBC 9.9 10x3/uL (4.8-10.8)
[2017-06-30 06:28] LABS: ANION GAP 15.3 mmol/L (8-16); CALCIUM 8.3 mg/dL (8.5-10.1); CARBON DIOXIDE 22.4 mmol/L (21.0-32.0); CREATININE - SERUM 1.7 mg/dL (0.6-1.3); MCV 99.2 fL (80.0-100.0); POTASSIUM - SERUM 3.7 mmol/L (3.5-5.1)
[2017-06-30 09:36] VITALS: BP 193/72
--- NOTE | 2017-06-30 11:01 | NUR ---
Patient Name: ADRIANA MARCELINO Admission Status: Elective Accout number: [id number] Admission Date: 06-28-2017 : 1940 Admission Diagnosis: Attending: CANDIDA FULLER Current LOS: 2 Anticipated DC Date: Planned Disposition: Assisted Living Primary Insurance: MEDICARE A & B Discharge Planning Comments: CM MET WITH PATIENT TO ASSESS DISCHARGE PLANNING NEEDS. PATIENT LIVES IN ASSISTED LIVING AT [facility], WHERE SHE PLANS TO RETURN TOO. SHE STATED THAT THEY WOULD BE THE ONES TO TAKE HER HOME . SHE DID NOT GIVE ME A NUMBER OF ANY FAMILY, CM WILL CALL [facility] VERIFY ([facility] NURSE STATED THAT THE PATIENT IS WITH PT MASSIEL PT) . PATIENT STATED THAT SHE HAS A WALKER AND A WHEELCHAIR AT HOME. CM WILL CONTINUE TO FOLLOW AND ASSIST WITH DISCHARGE PLANNING NEEDS. PCP: [facility] ([phone]) Powder Carrier: Daphne Flores * Is the patient Alert and Oriented? Yes 0 * PCP WILMA 0 * Preadmission Environment Assisted Living 0 * Facility Name [facility] 0 * ADLs Partial Dependent 0 * Partial ADLs (Assistance needed) Bathing Medication Management 0 * Equipment Rolling Walker Wheelchair 0 * Community resources currently utilized Assisted Living 0 * Please name any agencies selected above. [facility] 0 * Additional services required to return to the preadmission environment? Yes 0 * Can the patient safely return to the preadmission environment? Yes 0 * Has this patient been hospitalized within the prior 30 days at any hospital? No 0 Grand Total: 0
[2017-06-30 13:21] VITALS: BP 189/69
--- NOTE | 2017-06-30 13:23 | NUR ---
QUALITY CONTROL LAB TECH NOTE-DRESSING RIGHT SHOULDER CLEAN DRY AND INTACT. ABLE TO MOVE FINGERS FREELY ON RIGHT HAND-WARM AND PINK. CURRENTLY IN SLING. STATES PAIN LEVEL 3/10. TO RECIEVE BLOOD TODAY. CALL LIGHT IN REACH
[2017-06-30 17:05] VITALS: BP 137/66
--- NOTE | 2017-06-30 19:30 | NUR ---
RECIEVED SHIFT REPORT. PT IS LYING IN BED. ALERT AND ORIENTED AND ABLE TO VERBALIZE NEEDS. IV IS PATENT AND BLOOD TRANSFUSION FLUSHING LINE. SCD'S ON. DRESSING TO RIGHT SHOULDER C/D/I AND SLING ON. PT IS AMBULATORY WITH ASSISTANCE. PT STATES PAIN IS 3/10. O2 @ 2.5 PER NASAL CANNULA. NO NEEDS ARE VERBALIZED AT THIS TIME. WILL CONTINUE TO MONITOR. SIDE RAILS ARE UP X 2. BED IS IN LOWEST POSITION. BED ALARM IS ON FOR SAFETY. CALL LIGHT IS WITHIN REACH.
[2017-07-01 04:45] LABS: BASOPHILS 0.3 % (0-2); HEMATOCRIT 26.5 % (36.0-48.0); HEMOGLOBIN 8.9 g/dL (12-16); IMMATURE GRANULOCYTES 0.4 % (0-5); LYMPHOCYTES 9.1 % (15-50); MCH 32.1 pg (26.0-34.0); MCHC 33.6 g/dL (31.0-37.0); MCV 95.7 fL (80.0-100.0); MEAN PLATELET VOLUME 11.4 fL (7.4-10.4); MONOCYTES 10.3 % (2-11); NEUTROPHILS 77.9 % (40-80); PLATELET COUNT 118 10x3/uL (130-400); RBC 2.77 10x6/uL (4.00-5.40); RDW 15.5 % (11.5-14.5); WBC 7.4 10x3/uL (4.8-10.8)
[2017-07-01 05:02] LABS: ANION GAP 9.7 mmol/L (8-16); CALCIUM 8.6 mg/dL (8.5-10.1); CREATININE - SERUM 1.7 mg/dL (0.6-1.3); POTASSIUM - SERUM 3.7 mmol/L (3.5-5.1)
--- NOTE | 2017-07-01 08:00 | NUR ---
LYING IN BED,WITHOUT DISTRESS. CALL LIGHT IN REACH
--- NOTE | 2017-07-01 08:30 | NUR ---
PT WAS VERY UPSET AND CRYING, STATED SHE HAS BEEN HERE FOR 4 DAYS AND FEELS LIKE SHE IS NOT BEING TAKEN CARE OF. TALKED TO PATIENT AND LET HER EXPLAIN WHY SHE FELT LIKE THIS, STATED SHE HAS BEEN ON HER LIGHT ALL NIGHT FOR TISSUE, WATER, CLEAN UP ETC AND NO ONE HAS COME TO ASSIST HER, FINALLY THE YOUNG LADY IN [place] CAME AND GAVE HER A BOX OF TISSUE ALONG WITH OTHER ITEMS THAT SHE NEEDED. STATED SHE HAD NOT HAD A BATH SINCE SHE HAS BEEN IN AND FEELS VERY NEGLECTED. ADVISED HER I WILL MAKE SURE TO RELAY MESSAGE TO TESTER [employer]ASTE DISPOSAL LEAKAGE AND OTHER NURSES AND WE WILL DO OUR BEST TO MEET HER NEEDS, BED IN LOW POSITION, CALL LIGHT IN REACH, NO OTHER NEEDS AT THIS TIME
[2017-07-01 08:33] VITALS: BP 176/62
[2017-07-01 12:21] VITALS: BP 168/59
--- NOTE | 2017-07-01 13:15 | NUR ---
NUTRITION F/U CHART REVIEWED, PT VISIT. REG DIET WITH MINIMAL INTAKE LUNCH. "SAVING MY ENSURE FOR LATER". WILL CONTINUE TO PROVIDE DIET, ENSURE. RD FOLLOWING
[2017-07-01] MEDS ORDERED: PERCOCET 10/3251 TA1 PO (14:04)
--- NOTE | 2017-07-01 14:33 | NUR ---
Patient is being discharged home back to [facility]. [facility] will be picking patient up at 4:00pm. Reema MALONE notified that the patient was being discharged. Cm will continue to follow and assist as needed with
--- NOTE | 2017-07-01 16:02 | NUR ---
PT DC BACK TO [facility], PICKED UP BY DENTAL CLAIMS PROCESSOR, WENT OVER DC INSTRUCTIONS WITH PT AND TASHI
== END 2017-07-01 16:03 | disposition home health service (06) | DRG 483 ==
LOC: D.MS 06:24 → D.SDCHOLD 06:24 → D.MS 12:34
PROVIDERS: Family Medicine; ADMIT Orthopaedic Surgery
PROC: 0RRJ00Z Replacement of Right Shoulder Joint with Reverse Ball and Socket Synthetic Substitute, Open Approach (ICD-10-PCS; principal; 2017-06-28 08:30)
DX: M19.011 Primary osteoarthritis, right shoulder (principal); D62 Acute posthemorrhagic anemia; E11.9 Type 2 diabetes mellitus without complications; I10 Essential (primary) hypertension; K21.9 Gastro-esophageal reflux disease without esophagitis; M19.111 Post-traumatic osteoarthritis, right shoulder

== ENCOUNTER 2017-07-02 13:56 | Emergency (ER) | payer MEDICARE ==
[2017-06-29 12:38] VITALS: BMI 33.0
[~2017-07-02 13:56] MED LIST changes: +CELEXA40 MG PO; +PERCOCET 10/3251 TA1 PO
== END 2017-07-02 16:59 | disposition home or self-care (01) ==
LOC: D.ER 13:56
DX: S00.83XA Contusion of other part of head, initial encounter (principal); W01.0XXA Fall on same level from slipping, tripping and stumbling without subsequent striking against object, initial encounter; Y93.89 Activity, other specified; Y92.129 Unspecified place in nursing home as the place of occurrence of the external cause; I10 Essential (primary) hypertension; Z95.0 Presence of cardiac pacemaker

== ENCOUNTER 2017-08-13 16:15 | Emergency (ER) | payer MEDICARE ==
[2017-06-29 12:38] VITALS: BMI 33.0
== END 2017-08-13 20:50 | disposition home or self-care (01) ==
LOC: D.ER 16:15
DX: S01.81XA Laceration without foreign body of other part of head, initial encounter (principal); W01.0XXA Fall on same level from slipping, tripping and stumbling without subsequent striking against object, initial encounter; Y93.89 Activity, other specified; Y92.019 Unspecified place in single-family (private) house as the place of occurrence of the external cause; S80.211A Abrasion, right knee, initial encounter; M25.561 Pain in right knee; E11.9 Type 2 diabetes mellitus without complications; I10 Essential (primary) hypertension

== ENCOUNTER 2017-09-28 21:33 | Inpatient (IN) | payer MEDICARE ==
[~2017-09-28] VITALS: Ht 152.4 cm; Wt 80.7 kg
--- NOTE | ~2017-09-28 | EC ---
PATIENT:ADRIANA MARCELINO DATE OF SERVICE: 09/29/17 SEX: F MEDICAL RECORD: [id number] DATE OF : 39 LOCATION:D. D.211 AGE OF PATIENT: 77 ADMISSION DATE: 09/29/17 REFERRING PHYSICIAN: INTERPRETING PHYSICIAN: VAIBHAV KING MD ECHOCARDIOGRAM REPORT ECHO CHARGES 4 ECHO COMPLETE CLINICAL DIAGNOSIS: CHF ECHOCARDIOGRAPHIC MEASUREMENTS (adult normal given) AC root (d.<3.7cm) 2.7 cm LV Septum d (<1.2 cm> 1.3 cm Valve Excursion 1.7 cm LV Septum (systole) 1.9 cm Left Atria (s.<4.0cm> 4.1 cm LVPW d(<1.2cm) 1.4 cm RV (d.<2.3cm) 2.6 cm LVPW (sytole) 2.0 cm LV diastole(<5.6CM) 5.1 cm MV E-F(>70mm/sec) cm LV systole 3.0 cm LVOT Diameter 1.6 cm MV exc.(>10mm) cm Est.ejection fraction (50-75%) % Pericardial Effusion N DOPPLER: LVIT cm/sec A 91.0 cm/sec E 198 cm/sec LA cm/sec RVSP 28.0 mmHg LVOT 79.0 cm/sec AOP1/2T m/s Asc. Ao 194 cm/sec RVOT 73.0 cm/sec RA cm/sec PA 97.0 cm/sec AV Gradient Peak 15.1 mmHg AV Mean 8.3 mmHg AV Area 0.7 cm MV Gradient Peak 16.2 mmHg MV Mean 4.7 mmHg MV Area cm COMMENTS: Master [employer]: Tyree [employer] Spanish Teacher: 1 Dr. King TAPE# PACS DATE OF SERVICE: 09/29/2017 PROCEDURE: Echocardiogram. FINDINGS: 1. Left ventricular chamber size is within normal limits. Left ventricular systolic function is mildly depressed. Overall ejection fraction in the 40% to 45% range. 2. Left atrium is enlarged at 4.1 cm. Right atrium and right ventricular chamber sizes are as well mildly dilated. ECHOCARDIOGRAM REPORT [id number] ADRIANA MARCELINO 3. Valvular structures: Aortic valve was replaced with a tissue prosthesis with normal structure and function in this position. 4. Doppler interrogation reveals moderate mitral regurgitation, moderate tricuspid regurgitation, no other valvular insufficiency or stenosis. Pulmonary systolic pressure is preserved at 28 mmHg. 5. No evidence of pericardial effusion or left ventricular thrombus. TRANSINT:[id number] Voice Confirmation ID: [id number] DOCUMENT ID: [id number] VAIBHAV KING MD at 1202 CC: [id number] DICTATION DATE: 09/29/17 1238 APPARATUS CLEANER: 09/29/17 1248 DIS IN 09/30/17 [place] [id number] [place] [id number]
--- NOTE | ~2017-09-28 | CN ---
PATIENT NAME:ADRIANA MARCELINO MEDICAL RECORD: [id number] : 39 LOCATION:D. D.2114 ADMIT DATE: 09/29/17 ACCOUNT: [id number] CONSULTING PHYSICIAN: VAIBHAV WEAVER MD REFERRING PHYSICIAN: ROSA DOSS DO DATE OF CONSULTATION: 09/29/2017 DIAGNOSES: 1. Anemia. 2. Angina. 3. Coronary artery disease. 4. Previous PTCA and stent. 5. Hypertension. 6. Hyperlipidemia. 7. Paroxysmal atrial fibrillation. HISTORY OF PRESENT ILLNESS: Ms. Marcelino is well known to us with a past history of ischemic heart disease, last stenting was undertaken a year ago. She presents with chest discomfort; however, was found to have a hemoglobin of 8.2. She has had a history of anemia and had to be transfused in the past. She is now being transfused. Her angina has resolved. Her EKG is with no ST-T changes. It appears that she is still on Plavix. She has a history of atrial fibrillation, maintained in sinus rhythm on Cordarone; hyperlipidemia, treated with pravastatin; hypertension, treated with labetalol and hydralazine. PHYSICAL EXAMINATION: GENERAL APPEARANCE: Well-nourished, well-developed, appears stated age. Level of distress, comfortable. PSYCHIATRIC: Mental status, alert, normal affect. Orientation, oriented to time, place and person. EYES: Lids and conjunctiva, noninjected. No discharge, no pallor. ENT: Lips, teeth, gums, normal dentition. Oropharynx, no cyanosis, no pallor. NECK: Carotid arteries, bilateral normal upstroke, no bruits, no thrills. JUGULAR VEINS: No jugular venous pressure or distention. CERVICAL LYMPH NODES: Nontender, nonenlarged. THYROID: Not enlarged. Nontender. No nodules. LUNGS: Respiratory effort, unlabored. CHEST: Normal curvature. No thoracic deformity. No chest wall tenderness. Percussion, resonant. Auscultation, clear. No wheezes, no rales, no rhonchi. CARDIOVASCULAR: Precordial exam, nondisplaced. No heaves or pericardial thrills. Rate and rhythm, regular. Heart sounds, normal S1, normal S2. No S3, no gallop, no rub. Systolic murmur, not heard. Diastolic murmur, not heard. EXTREMITIES: No cyanosis, no edema. Peripheral pulses, full and equal in all extremities, except as noted. No bruits appreciated. ABDOMEN: Soft, nondistended. Normal aorta. No bruit. Nontender. No masses. Liver, nontender, no hepatomegaly. Spleen, nontender, no splenomegaly. MUSCULOSKELETAL: No joint tenderness. No joint swelling. No erythema. NEUROLOGICAL: Normal gait, normal strength, normal tone. SKIN: Warm and dry. REVIEW OF SYSTEMS: The patient reports easy bruising but reports no swollen glands. The patient reports no fever, no night sweats, no significant weight gain, no significant weight loss. No significant exercise tolerance. The patient reports no dry eyes, no irritation, no vision change. Patient reports no difficulty hearing and no ear pain. Patient reports no frequent nose bleeds CONSULT REPORT [id number] ADRIANA MARCELINO or nose and sinus problems. Patient reports on arm pain on exertion. No shortness of breath while lying down. No history of heart murmur. Patient reports no cough, no wheezing or coughing up blood. Patient reports no abdominal pain, no vomiting. Normal appetite. No diarrhea and not vomiting blood. No nausea and no constipation. Patient reports no incontinence. No difficulty urinating. No hematuria. No increased frequency. Patient reports no muscle aches. No weakness, no arthralgias, no back pain. No swelling of the extremities. Patient reports no abnormal mole, no jaundice, no rashes. Reports no loss of consciousness. No weakness and no numbness. No seizures, dizziness, or headaches. The patient reports no depression, no sleep disturbance, feeling safe in a relationship and no alcohol abuse. Patient reports on fatigue. Reports no runny nose or sinus pressure. No itching, no hives, and no frequent sneezing. OVERALL IMPRESSION: Her angina is secondary to her anemia. At this time, a year out from the stenting, we can discontinue the Plavix. Did not feel the need to do repeat coronary angiography as her troponin is normal, she has no EKG changes. Only treat the anemia and the underlying cause of anemia. Get an echocardiogram. Otherwise, no other cardiac workup or treatment is necessary. TRANSINT:[id number] Voice Confirmation ID: [id number] DOCUMENT ID: [id number] VAIBHAV WEAVER MD at 1202 CC: [id number] DICTATION DATE: 09/29/17 1206 MAINTENANCE SERVICE DISPATCHER: 09/29/17 1247 DIS IN 09/30/17 [facility] [address] [place] [id number]
--- NOTE | ~2017-09-28 | HP ---
PATIENT: ADRIANA MARCELINO MEDICAL RECORD: [id number] ACCOUNT: [id number] LOCATION:[address] : 39 ADMISSION DATE: 09/29/17 HISTORY AND PHYSICAL EXAMINATION CHIEF COMPLAINT: Chest pain. HISTORY OF PRESENT ILLNESS: The patient is a 77-year-old female, who resides in a local [facility]. Apparently while playing bingo, she developed anterior substernal chest pain, pain radiating down the left arm. She took 2 nitroglycerin, apparently did get relief. The patient presented to the Emergency Room, continued to have substernal chest pain. It was felt this patient should be admitted. PAST MEDICAL HISTORY: Her past history is significant that she has had a history of arteriosclerotic heart disease. She had had stenting in July 2016 with a left anterior descending 95% in-stent restenosis. She has not had any chest pain since that time until 7:15 on the afternoon of the . Her past history is significant for hypertension. She has also had history of congestive heart failure, diabetes mellitus, morbid obesity, idiopathic peripheral autonomic neuropathy, vitamin D deficiency. She had anemia. She has been worked up by her oncologist/sales and marketing director, Dr. Coker. History of atrial fibrillation. History of Alzheimer's. FAMILY HISTORY: Mother had cerebrovascular accident and of stroke. Father had congestive heart failure, arteriosclerotic heart disease. SOCIAL HISTORY: The patient is , although lives in a [facility]. She was born in [place], [place], where she lived most of her adult life. Her disabled. The patient currently is retired. She has been a homemaker. PAST SURGICAL HISTORY: The patient had a breast reduction in 1983. Had a tummy tuck in . She has had rotator cuff repairs in 1994, right and left. ALLERGIES: SULFA, BACTRIM, CELEBREX, HEMOCYTE PLUS, ISOSORBIDE. MEDICATIONS: Include amiodarone 200 mg once a day, Wellbutrin 150 mg once a day, calcium 600 mg once a day, Celexa 40 mg once a day, Plavix 75 mg once a day, Colace 100 mg p.o. b.i.d., Dexilant 60 mg once a day, Aricept 5 mg once a day, ferrous sulfate 325 b.i.d., gabapentin 300 mg t.i.d., glipizide 5 mg once a day, hydralazine 50 mg p.o. t.i.d., isosorbide dinitrate 20 mg p.o. every 8 hours, labetalol 100 mg b.i.d., levothyroxine 50 mcg once a day, nitrofurantoin 100 mg p.o. b.i.d., oxycodone 10/325 one every 8 hours p.r.n. pain, pravastatin 40 mg once a day, primidone 250 mg p.o. at bedtime, tizanidine 2 mg every 8 hours p.r.n. muscle spasm, tramadol 50 mg 1 every 6 hours p.r.n. pain. REVIEW OF SYSTEMS: CONSTITUTIONAL: She denies any headaches, seizures, or syncope. She denies changes in visual or auditory acuity. PULMONARY: She reports no shortness of breath, no cough or congestion. CARDIOVASCULAR: She has had substernal chest pain, no associated nausea or vomiting. GASTROINTESTINAL: No nausea, vomiting, melena, hematochezia, urinary urgency, frequency, or dysuria. HISTORY AND PHYSICAL [id number] ADRIANA MARCELINO OBJECTIVE: VITAL SIGNS: Upon presentation to the Emergency Room, this patient had a blood pressure of 208/75, her pulse was 59, temperature was 97. GENERAL: She is alert and oriented times 3. HEENT: Head: Normocephalic. No lesions. Ears: TMs are clear. Eyes: Pupils are equal, round, and reactive to light. Her extraocular movements are intact. Nasal cavity and oral cavity: Oropharynx clear. NECK: Supple. There is no adenopathy. HEART: Had a regular rate and rhythm without any murmurs, gallops or rubs. LUNGS: Clear. ABDOMEN: Soft. Bowel sounds were positive. LOWER EXTREMITIES: Had no edema. LABORATORY AND DIAGNOSTIC DATA: The patient had an EKG initially showing sinus rhythm, first-degree AV block, rate is approximately 100, no acute ST-T wave changes. The patient's troponin was normal as well as CK-MB and creatine kinase. She had a urine showing 0-5 rbc's, 0-5 wbc's. She had a few bacteria noted. White count was 5.8, hemoglobin was 8.2, hematocrit of 25.6, her red count was 2.56, platelets are 147. Sodium 132, potassium of 4.4, BUN is 27, creatinine is 2.1, glucose 108, magnesium 1.7, calcium 8.4. ProBNP was 7913. Albumin was slightly low at 3.2. ASSESSMENT: Substernal chest pain with a history of arteriosclerotic heart disease, prior stenting, anemia, hypertension, hyperlipidemia, diabetes, chronic kidney disease. PLAN: The patient will be admitted. Cardiology consultation will be obtained. She will be typed and crossed and transfused 1 unit of red blood cells. Anemia profile will be performed. Most likely, the patient will need to undergo cardiac catheterization to evaluate for any stenosis. The patient will also be placed on normal saline at 50 cc an hour, also given IV Lasix 40 mg every 12 hours. Echocardiogram will be performed. TRANSINT:[id number] Voice Confirmation ID: [id number] DOCUMENT ID: [id number] CANDIDA DILLON MD at 0659 CC: [id number] DICTATION DATE: 09/29/17725 HOP WORKER: 09/29/[address] [facility] [address] [place] [address]
[2017-09-28 22:08] LABS: BASOPHILS 0.9 % (0-2); HEMATOCRIT 25.6 % (36.0-48.0); HEMOGLOBIN 8.2 g/dL (12-16); IMMATURE GRANULOCYTES 0.3 % (0-5); LYMPHOCYTES 17.6 % (15-50); MEAN PLATELET VOLUME 11.1 fL (7.4-10.4); MONOCYTES 9.4 % (2-11); NEUTROPHILS 66.8 % (40-80); RBC 2.56 10x6/uL (4.00-5.40); RDW 14.5 % (11.5-14.5); WBC 5.8 10x3/uL (4.8-10.8)
[2017-09-28 22:09] LABS: PLATELET COUNT 147 10x3/uL (130-400)
[2017-09-28 22:27] LABS: ALBUMIN 3.2 g/dL (3.4-5.0); ALKALINE PHOSPHATASE 89 U/L (46-116); ALT (SGPT) 18 U/L (10-68); BILIRUBIN - TOTAL 0.32 mg/dL (0.2-1.3); CALC OSMOLALITY 270 mosm/kg (275-300); CALCIUM 8.4 mg/dL (8.5-10.1); CARBON DIOXIDE 28.1 mmol/L (21.0-32.0); CHLORIDE - SERUM 98 mmol/L (98-107); CREATININE - SERUM 2.1 mg/dL (0.6-1.3); GLUCOSE 108 mg/dL (74-106); POTASSIUM - SERUM 4.4 mmol/L (3.5-5.1); PROTEIN - SERUM 6.8 g/dL (6.4-8.2); SODIUM 132 mmol/L (136-145); UREA NITROGEN 27 mg/dL (7-18); eGFR NON AFRICAN AMERICAN 24 mL/min (90-120)
[2017-09-28 22:36] LABS: CHOL - HDL RATIO 2.4 ratio (2.3-4.1); CHOLESTEROL, TOTAL 128 mg/dL (0-200); CKMB 2.4 U/L (0.0-3.6); CREATINE KINASE 137 UL (21-215); HDL CHOLESTEROL 54 mg/dL (32-96); LDL CHOLESTEROL 48 mg/dL (0-100); LDL-HDL RATIO 0.9 ratio (1.5-3.5); TRIGLYCERIDE 133 mg/dL (30-200); TROPONIN-I < 0.017 ng/mL (0.000-0.060)
[2017-09-28 23:03] LABS: INR 1.1 (0.85-1.17); PROTIME 13.8 SECONDS (11.6-15.0)
[2017-09-28 23:18] LABS: MAGNESIUM - SERUM 1.7 mg/dL (1.8-2.4)
[2017-09-28 23:24] LABS: APPEARANCE CLEAR (CLEAR); BILIRUBIN NEGATIVE (NEGATIVE); COLOR YELLOW (YELLOW); GLUCOSE NEGATIVE (NEGATIVE); KETONE NEGATIVE (NEGATIVE); NITRITE NEGATIVE (NEGATIVE); PROTEIN 3+ mg/dL (NEGATIVE); SPECIFIC GRAVITY 1.005 (1.005-1.020); UROBILINOGEN NORMAL (NORMAL)
[2017-09-28 23:25] LABS: BACTERIA FEW /hpf (NONE SEEN); EPITHELIAL CELLS 0-5 /hpf (0-5); RED CELLS - URINE 0-5 /hpf (0-5); WHITE CELLS - URINE 0-5 /hpf (0-5)
[2017-09-29 03:26] LABS: CKMB 2.1 U/L (0.0-3.6); CREATINE KINASE 128 UL (21-215); TROPONIN-I 0.017 ng/mL (0.000-0.060)
[2017-09-29 08:07] LABS: % SATURATION 23 % (15-55); IRON 37 ug/dl (35-150); TOTAL IRON BIND CAPACITY 155 ug/dl (260-445); UNSAT IRON BIND CAPACITY 118 ug/dl (150-375)
[2017-09-29 08:21] LABS: CKMB 1.9 U/L (0.0-3.6); CREATINE KINASE 115 UL (21-215); FERRITIN 610 ng/mL (3-244); TROPONIN-I < 0.017 ng/mL (0.000-0.060)
[2017-09-29 15:20] LABS: CKMB 1.8 U/L (0.0-3.6); CREATINE KINASE 105 UL (21-215); TROPONIN-I < 0.017 ng/mL (0.000-0.060)
[2017-09-29 17:24] VITALS: BP 108/58; BMI 34.8
[2017-09-29 20:28] VITALS: BP 203/58
[2017-09-30 01:41] VITALS: BP 205/46
[2017-09-30 05:16] VITALS: BP 191/46
[2017-09-30 06:20] LABS: BASOPHILS 0.4 % (0-2); EOSINOPHILS 4.5 % (0-7); HEMATOCRIT 29.3 % (36.0-48.0); HEMOGLOBIN 9.1 g/dL (12-16); IMMATURE GRANULOCYTES 0.4 % (0-5); LYMPHOCYTES 6.6 % (15-50); MCH 29.6 pg (26.0-34.0); MCHC 31.1 g/dL (31.0-37.0); MEAN PLATELET VOLUME 11.7 fL (7.4-10.4); MONOCYTES 7.5 % (2-11); NEUTROPHILS 80.6 % (40-80); PLATELET COUNT 141 10x3/uL (130-400); RBC 3.07 10x6/uL (4.00-5.40); RDW 19.1 % (11.5-14.5); WBC 5.3 10x3/uL (4.8-10.8)
[2017-09-30 06:23] LABS: MCV 95.4 fL (80.0-100.0)
[2017-09-30 06:50] LABS: ANION GAP 14.3 mmol/L (8-16); BILIRUBIN - TOTAL 0.4 mg/dL (0.2-1.3); CALCIUM 8.1 mg/dL (8.5-10.1); CARBON DIOXIDE 25.7 mmol/L (21.0-32.0); PROTEIN - SERUM 6.4 g/dL (6.4-8.2)
[2017-09-30 09:20] LABS: FOLATE (FOLIC ACID) - SERUM >20.0 ng/mL (>3.0)
[2017-09-30 09:50] VITALS: BP 187/58
[2017-09-30 12:20] VITALS: Ht 152.4 cm; Wt 80.7 kg
== END 2017-09-30 11:15 | disposition home health service (06) | DRG 812 ==
LOC: D.ER 21:33 → D.EDHOLD 09-29 02:28 → D.M2 09-29 16:09
PROVIDERS: Family Medicine; Nurse Practitioner Family
DX: D64.9 Anemia, unspecified (principal); I25.119 Atherosclerotic heart disease of native coronary artery with unspecified angina pectoris; E11.22 Type 2 diabetes mellitus with diabetic chronic kidney disease; I12.9 Hypertensive chronic kidney disease with stage 1 through stage 4 chronic kidney disease, or unspecified chronic kidney disease; N18.9 Chronic kidney disease, unspecified; E78.5 Hyperlipidemia, unspecified; I48.0 Paroxysmal atrial fibrillation; Z95.5 Presence of coronary angioplasty implant and graft

== ENCOUNTER → 2017-11-30 09:28 | Outpatient (CLI) | payer MEDICARE ==
[2017-09-30 12:20] VITALS: BMI 34.7
== END | disposition home or self-care (01) ==
LOC: D.CT 09:28
DX: M19.112 Post-traumatic osteoarthritis, left shoulder (principal)

== ENCOUNTER 2017-12-09 08:26 | Outpatient (CLI) | payer MEDICARE ==
[~2017-12-09] VITALS: Ht 152.4 cm; Wt 83.6 kg
[2017-12-09 08:51] VITALS: BP 195/67; Ht 152.4 cm; Wt 83.6 kg
== END 2017-12-09 16:00 | disposition home or self-care (01) ==
LOC: D.OPS 08:26
DX: D64.9 Anemia, unspecified (principal)

== ENCOUNTER 2017-12-14 22:10 | Emergency (ER) | payer MEDICARE ==
[2017-12-09 08:51] VITALS: BMI 36.0
== END 2017-12-15 01:41 | disposition home or self-care (01) ==
LOC: D.ER 22:10
DX: S90.31XA Contusion of right foot, initial encounter (principal); W23.0XXA Caught, crushed, jammed, or pinched between moving objects, initial encounter; Y93.89 Activity, other specified; Y92.129 Unspecified place in nursing home as the place of occurrence of the external cause

== ENCOUNTER → 2017-12-21 12:06 | Outpatient (CLI) | payer MEDICARE ==
[2017-12-09 08:51] VITALS: BMI 36.0
[~2017-12-21 12:06] MED LIST changes: +LEVOTHYROXINE50 MCG PO; +NORVASC10 MG PO
== END | disposition home or self-care (01) ==
LOC: D.CT 12:06
DX: R91.1 Solitary pulmonary nodule (principal)

== ENCOUNTER 2018-01-14 14:19 | Outpatient (CLI) | payer MEDICARE ==
[~2018-01-14] VITALS: Ht 152.4 cm; Wt 87.8 kg
--- NOTE | ~2018-01-14 | DS ---
PATIENT:ADRIANA MARCELINO :38 MEDICAL RECORD: [id number] DISCHARGE SUMMARY ADMISSION DATE: 01/14/18 DISCHARGE DATE: 01/15/18 DISCHARGE DIAGNOSES: 1. Angina. 2. Coronary artery disease. 3. Percutaneous transluminal coronary angioplasty and stent to the left anterior descending this admission. 4. Hypertension. 5. Hyperlipidemia. HOSPITAL COURSE: Ms. Marcelino presented with anginal symptomatology, found to have single-vessel disease to the LAD, underwent successful PTCA and stent of the LAD, was discharged home with no change in her medications with the exception of increasing the nitro patch from 0.3 mg to 0.6 mg. We will follow up with [facility] in 1 month. TRANSINT:[id number] Voice Confirmation ID: [id number] DOCUMENT ID: [id number] VAIBHAV WEAVER MD at 1741 CC: [id number] DICTATION DATE: 01/15/18 0934 BATCH DUMPER: 01/15/18 1332 DEP CLI 01/15/[address] [address]
--- NOTE | ~2018-01-14 | HEMODYNAMI ---
PATIENT:ADRIANA MARCELINO MEDICAL RECORD: [id number] : 38 LOCATION:[facility] ADMISSION DATE: 01/14/18 Generatedon:01/14/201816:58 Patient name: ADRIANA MARCELINO Patient #: [id number] : 1940 Date of study: 01/14/2018 Page: Of Hemodynamic Procedure Report Patient Data Patient Demographics Procedure consent was obtained First Name: ADRIANA Gender: Female Last Name: CHARI : 1940 [facility] Initial: J Age: 77 year(s) Patient #: [id number] Race: SSN: [id number] Additional ID: [id number] Contact details Address: [address] [place] [address] [facility] State: [place] City: [place] Zip code: [address] Past Medical History Allergies Allergen Reaction Date Comments Reported Other allergy 07/31/2015 NSAIDS, Sulfa, Celebrex, Versed Other allergy 08/03/2016 Furosemide, NSAIDS, Sulfa, Celebrex, Versed Admission Admission Data Admission Date: 01/14/2018 Admission Time: 14:19 Arrival Date: 01/14/2018 Arrival Time: 14:19 Admit Source: Other Insurance Payor: Medicare Procedure Procedure Types Cath Procedure Diagnostic Procedure [facility] w/Coronaries w/Grafts PCI Procedure Coronary Stent Coronary Stent Initial Procedure Description Procedure Date Procedure Date: 01/14/2018 Procedure Start Time: 16:41 Procedure End Time: 16:57 Procedure Staff Name Function Anupam King MD Performing Physician Lady Capps RT Monitor Mauricio Holley RN Nurse Dena Steinberg RT Scrub Shoaib Thomason RN Chemical Lab Technician Procedure Data Cath Procedure Fluoroscopy Diagnostic fluoroscopy Total fluoroscopy Time: 3 time: 3 min min Diagnostic fluoroscopy Total fluoroscopy dose: 998 dose: 998 mGy mGy Contrast Material Contrast Material Type Amount (ml) Isovue 300 100 Entry Location Entry Primary Successful Side Size Upsize Upsize Entry Closure Succes sful Closure Location (Fr) 1 (Fr) 2 (Fr) Remarks Device Remarks Femoral Right 6 Fr Exoseal artery Short Estimated blood loss: 5 ml Diagnostic catheters Device Type Used For End Catheter Placement MULTIPACK Pigtail 5 Fr LV Angiography catheter MULTIPACK JL 4.0 5Fr Left Coronary catheter Angiography DIAGNOSTIC AR 2 MOD 5 Fr Right Coronary catheter ([id number]) Angiography Procedure Complications No complications Procedure Medications Medication Administration Route Dosage Fentanyl I.V. 50 mcg 0.9% NaCl I.V. 100 ml/hr Oxygen etCO2 Nasal cannula 2 l/min Heparin Flush Bag added to field 2 bags (1000units/500ml NS) Lidocaine 2% added to field 20 Heparin Bolus I.V. 4000 units Hemodynamics Rest Heart Rate: 58 (bpm) Pressure Samples Time Site Value (mmHg) Purpose Heart Use Rate(bpm) 16:42 LV 117/22,23 Snapshot 57 Snapshots Pre Cath Intra NCS Post Cath Vital Signs Time Heart Resp SPO2 etCO2 NIBP (mmHg) Rhythm Pain Sedation Rate (ipm) (%) (mmHg) Status Level (bpm) 16:28:03 58 19 99 29.1 172/69(130) NSR 0 (11) 10(A) , No pain 16:33:21 57 15 98 44.1 161/79(127) NSR 0 (11) 10(A) , No pain 16:38:34 56 14 98 46.4 159/79(115) NSR 0 (11) 10(A) , No pain 16:43:52 56 11 98 41.1 159/76(123) NSR 0 (11) 10(A) , No pain 16:49:15 55 14 98 41.9 151/73(124) NSR 0 (11) 9(A) , No pain 16:54:35 56 11 98 2.9 158/71(115) NSR 0 (11) 10(A) , No pain Medications Time Medication Route Dose Verified Delivered Reason Notes Effectiveness by by 16:30:39 Fentanyl I.V. 50 Mauricio Mauricio for sedation mcg Kishan Holley RN RN 16:35:10 0.9% NaCl I.V. 100 Mauricio Mauricio Per physician ml/hr Kishan Holley RN RN 16:35:19 Oxygen etCO2 2 Mauricio Mauricio Per physician Nasal l/min Kishan Holley cannula RN RN 16:35:31 Heparin Flush added 2 Mauricio Mauricio used for Bag to bags Kishan Holley procedure (1000units/500ml field RN RN NS) 16:35:43 Lidocaine 2% added 20ml Mauricio Mauricio for local to vial Kishan Holley anesthetic RN RN 16:50:54 Heparin Bolus I.V. 4000 Mauricio Mauricio for units Kishan Holley anticoagulation RN heat and vent aircraft mechanic Log Time Note 16:00:18 Time tracking: Regular hours (M-F 7:00 - 5:00) 16:00:22 Plan of Care:Hemodynamics will remain stable., Cardiac rhythm will remain stable., Comfort level will be maintained., Respiratory function will remain adequate., Patient/ family verbilizes understanding of procedure., Procedure tolerated without complication., Recovers from procedure without complications.. 16:10:10 Admit Source: Other 16:10:13 Arrival Date: 01/14/2018 2:19:00 PM 16:10:21 Insurance Payor : Medicare 16:13:33 Shoaib Thomason RN sent for patient. Start room use. 16:19:45 Patient received from ED to CCL 1 Alert and oriented. Tansferred to table in Supine position. 16:19:46 Warm blankets applied, and roxanne hugger turned on for patient comfort. 16:19:47 Correct patient and procedure confirmed by team. 16:19:49 Signed procedure consent form obtained from patient. 16:19:50 ECG and BP/O2 sat monitors applied to patient. 16:19:50 Full Disclosure recording started 16:26:34 Vital chart was started 16:27:42 Baseline sample Acquired. 16:27:59 H&P Date Dictated: 01/14/2018 New H&P dictated by physician.. 16:28:00 Pre-procedure instructions explained to patient. 16:28:01 Pre-op teaching completed and patient verbalized understanding. 16:28:02 Family in waiting room. 16:28:03 Patient NPO since Midnight. 16:28:06 Is the patient allergic to Iodine/contrast media? No. 16:28:07 Was the patient premedicated? No 16:28:11 Is patient on blood thinner?Yes 16:28:14 ACC The patient was administered the following blood thiners within the last 24 hours: ACCPlavix 16:28:16 Patient diabetic? Yes. 16:28:17 If diabetic: On Metformin? No 16:28:19 Previous problem with sedation/anesthesia? No ? 16:28:22 Snore? Yes 16:28:23 Sleep apnea? No 16:28:25 Deviated septum? No 16:28:27 Opens mouth fully? Yes 16:28:27 Sticks out tongue? Yes 16:28:29 Airway obstruction? No ? 16:28:32 Dentures? No ? 16:28:35 Pre procedure: right dorsailis pedis pulse Doppler 16:28:39 Pre procedure: left dorsailis pedis pulse Doppler 16:28:42 Patient pain scale 0/10 ?. 16:28:48 IV patent on arrival in left forearm with 0.9% NaCl at [facility]. 16::53 Lab results completed and on chart. 16:28:57 Right groin area was prepped with chlora-prep and draped in sterile fashion 16:28:58 Alarms reviewed by R. N. 16:28:59 Sharps counted by scrub and verified by R.N. 16:29:00 Physician arrived 16:29:00 --------ALL STOP TIME OUT------ 16:29:01 Final Timeout: patient, procedure, and site verified with staff and physician. All members of the team are in agreement. 16:29:03 Right groin site verified by team. 16:30:39 Fentanyl 50 mcg I.V. was administered by Mauricio Holley RN; for sedation; 16:32:50 Physical assessment completed. ASA score P 2 - A patient with mild systemic disease as per Anupam King MD. 16:32:53 Sedation plan: IV Moderate Sedation Medication:Versed, Fentanyl 16:35:10 0.9% NaCl 100 ml/hr I.V. was administered by Mauricio Holley RN; Per physician; 16:35:19 Oxygen 2 l/min etCO2 Nasal cannula was administered by Mauricio Holley RN; Per physician; 16:35:31 Heparin Flush Bag (1000units/500ml NS) 2 bags added to field was administered by Mauricio Holley RN; used for procedure; 16:35:43 Lidocaine 2% 20ml vial added to field was administered by Mauricio Holley RN; for local anesthetic; 16:39:25 Use device set Femoral Dx 16:39:26 ACIST Syringe (74656) opened to sterile field. 16:39:26 Bag Decanter (2002S) opened to sterile field. 16:39:26 Medline Cath Pack ([id number]) opened to sterile field. 16:39:27 DIAGNOSTIC WIRE .035 260cm J wire (660363) opened to sterile field. 16:39:28 ACIST Hand Control (97608) opened to sterile field. 16:39:29 ACIST Manifold (09680) opened to sterile field. 16:39:29 DIAGNOSTIC Multipack 5Fr catheter set (FH2816) opened to sterile field. 16:39:30 Tegaderm 4 x 4 (1626W) opened to sterile field. 16:40:04 SHEATH 6Fr Prelude ([id number]) opened to sterile field. 16:41:21 Procedure started. 16:41:24 Local anesthetic to right femoral artery with Lidocaine 2% by Anupam King MD.INITIAL ACCESS ONLY 16:41:32 A 6 Fr Short sheath was inserted into the Right Femoral artery 16:41:41 A MULTIPACK Pigtail 5 Fr catheter was advanced over the wire and used for LV Angiography. 16:42:37 LV hemodynamics recorded. 16:42:38 LV gram done using ESCOBAR 16:42:46 Injector settings: Ml/sec: 5, Volume: 15, 16:42:51 EF : 50 % 16:43:00 Catheter removed. 16:43:06 A MULTIPACK JL 4.0 5Fr catheter was advanced over the wire and used for Left Coronary Angiography. 16:43:31 LCA angiography performed. 16:43:34 Injector settings: Ml/sec: 3, Volume: 6, 16:44:20 CHOICE PT Extra Support 182cm wire ([id number]) opened to sterile field. 16:44:21 INFLATOR Merit BasixCompak (FQ3802) opened to sterile field. 16:44:27 Catheter removed. 16:46:14 A DIAGNOSTIC AR 2 MOD 5 Fr catheter ([id number]) was advanced over the wire and used for Right Coronary Angiography. 16:46:19 Catheter removed. 16:46:49 GUIDE 6FR AR 2.0 catheter ([id number]) opened to sterile field. 16:46:58 RCA angiography performed. 16:48:38 Injector settings: Ml/sec: 3, Volume: 6, 16:48:40 Catheter removed. 16:48:41 Proceeding to intervention. 16:49:04 GUIDE 6FR XBLAD 3.5 catheter ([id number]) opened to sterile field. 16:49:15 uznnk1s pt wire advanced. 16:49:56 Wire advanced across lesion. 16:50:54 Heparin Bolus 4000 units I.V. was administered by Mauricio Holley RN; for anticoagulation; 16:51:24 Place stent Inflation Number: 1 A SASCHA RX 3.0 x 18 stent ([id number]) was prepped and advanced across the Mid LAD. The stent was deployed at 15 NIVIA for 0:10 (min:sec). 16:52:12 Stent catheter was removed intact over wire. 16:52:14 Wire removed. 16:52:14 Guide catheter removed. 16:52:21 EXOSEAL 6Fr (EX600) opened to sterile field. 16:52:32 Sheath removed intact; hemostasis achieved with Exoseal to the Right Femoral artery. 16:52:35 Procedure ended.(Physican Out) 16:54:46 Fluoroscopy time 03.00 minutes. 16:54:48 Flurop Dose total: 998 16:54:48 Fluoroscopy dose: 998 mGy 16:54:54 Contrast amount:Isovue 300 100ml. 16:54:55 Sharps counted by scrub and verified by R.N. 16:54:57 Insertion/operative site no bleeding no hematoma. 16:55:00 Post-op/insertion site Right Femoral artery dressed using a 4 x 4 and Tegaderm. 16:55:04 Post right femoral artery:stable 16:55:05 Post Procedure Pulses reassessed and unchanged 16:55:08 Post procedure rhythm: unchanged. 16:55:13 Estimated blood loss: 5 ml 16:55:14 Post procedure instruction explained to patient.Patient verbalizes understanding. 16:55:15 Patient needs reinforcement of post procedure teaching. 16:55:31 Procedure type changed to Cath procedure, Diagnostic procedure, LHC, LHC w/Coronaries w/Grafts, PCI procedure, Coronary Stent, Coronary Stent Initial 16:55:32 Procedure and supply charges have been captured, reviewed, submitted and are correct. 16:55:37 Procedure Complication : No complications 16:55:39 Vital chart was stopped 16:55:40 See physician's report for complete and final results. 16:55:49 Report given to [facility]. 16:55:51 Patient transfered to [facility] with Stretcher. 16:57:14 Procedure ended. 16:57:14 Full Disclosure recording stopped 16:57:24 ACC-PCI Only Patient was given prescriptions, or instructed by Anupam King MD to start/continue the following medications upon discharge: Plavix 16:57:26 End room use (Document Last) Intervention Summary Intervention Notes Time ActionType Lesion and Equipment Used Action# Pressure Duration Attributes 16:51:24 Place stent Mid LAD SASCHA RX 3.0 x 1 15 00:10 18 stent ([id number]) Device Usage Item Name Manufacture Quantity Catalog Number Hospital Part Current M inimal Lot# / Charge Number Stock Stock Serial# Code ACIST Syringe Acist 1 50854 860895 866735 386408 2 0 (29925) Medical Systems Inc Bag Decanter Microtek 1 2001S 469540 63943 354304 5 () Medical Inc. Medline Cath Cardinal 1 [id number] 195833 77288 254580 5 Pack Health ([id number]) DIAGNOSTIC [place] 1 178334 992823 684098 429761 3 0 WIRE .035 260cm J wire (237527) ACIST Hand Acist 1 92230 977261 293158 018484 5 Control Medical (40411) Systems Inc ACIST Manifold Acist 1 64908 862616 183724 540601 5 (93384) Medical Systems Inc DIAGNOSTIC Cardinal 1 IF7118 451942 80263 569341 3 0 Multipack 5Fr Health catheter set (KU8339) Tegaderm 4 x 4 3M 1 1626W 107381 398546 440838 5 (1626W) SHEATH 6Fr Merit 1 [id number] 188113 404353 206254 5 Prelude Medical ([id number]) MULTIPACK Cardinal 1 860944 5 Pigtail 5 Fr Health catheter MULTIPACK JL Cardinal 1 944965 5 4.0 5Fr Health catheter CHOICE PT [place] 1 [id number] 474798 918827 686019 5 Extra Support Scientific 182cm wire ([id number]) INFLATOR Merit Merit 1 LC2009 903938 075429 199106 1 5 Indium Software Inc. (SS7013) DIAGNOSTIC AR Cardinal 1 [id number] 274853 889991 831191 2 0 2 MOD 5 Fr Health catheter ([id number]) GUIDE 6FR AR Medtronic 1 [id number] 010814 22313 141455 1 2.0 catheter (WT4JA82) GUIDE 6FR Cardinal 1 [id number] 605966 905168 361915 1 0 XBLAD 3.5 Health catheter ([id number]) SASCHA RX 3.0 x Medtronic 1 [id number] 479403 2451075 494217 5 [id number] 18 stent ([id number]) EXOSEAL 6Fr Cardinal 1 EX600 849950 076174 149101 1 0 (EX600) Health Signature Audit [place] Stage Time Signature Unsigned Intra-Procedure 01/14/2018 Lady Capps 4:58:03 PM RT(R) Signatures Monitor : Lady Capps RT Signature : Date : Time : [place] [id number] [place] [address]
--- NOTE | ~2018-01-14 | HP ---
PATIENT: ADRIANA MARCELINO MEDICAL RECORD: [id number] ACCOUNT: [id number] LOCATION:[facility].2117 : 39 ADMISSION DATE: 01/14/18 HISTORY AND PHYSICAL EXAMINATION DIAGNOSES: 1. Unstable angina. 2. Coronary artery disease. 3. Previous multivessel PTCA stent. 4. Hypertension. 5. Hyperlipidemia. HISTORY OF PRESENT ILLNESS: Ms. Marcelino presents with multiple hours of unstable anginal symptomatology, it did just start today, it shows like that of her previous angina. Her last cardiac intervention was 08/04. She does have multivessel coronary artery disease. Her EKG is abnormal with ST-T abnormalities, nonspecific throughout. REVIEW OF SYSTEMS: The patient reports easy bruising but reports no swollen glands. The patient reports no fever, no night sweats, no significant weight gain, no significant weight loss. No significant exercise tolerance. The patient reports no dry eyes, no irritation, no vision change. Patient reports no difficulty hearing and no ear pain. Patient reports no frequent nose bleeds or nose and sinus problems. Patient reports on arm pain on exertion. No shortness of breath while lying down. No history of heart murmur. Patient reports no cough, no wheezing or coughing up blood. Patient reports no abdominal pain, no vomiting. Normal appetite. No diarrhea and not vomiting blood. No nausea and no constipation. Patient reports no incontinence. No difficulty urinating. No hematuria. No increased frequency. Patient reports no muscle aches. No weakness, no arthralgias, no back pain. No swelling of the extremities. Patient reports no abnormal mole, no jaundice, no rashes. Reports no loss of consciousness. No weakness and no numbness. No seizures, dizziness, or headaches. The patient reports no depression, no sleep disturbance, feeling safe in a relationship and no alcohol abuse. Patient reports on fatigue. Reports no runny nose or sinus pressure. No itching, no hives, and no frequent sneezing. PHYSICAL EXAMINATION: GENERAL APPEARANCE: Well-nourished, well-developed, appears stated age. Level of distress, comfortable. PSYCHIATRIC: Mental status, alert, normal affect. Orientation, oriented to time, place and person. EYES: Lids and conjunctiva, noninjected. No discharge, no pallor. ENT: Lips, teeth, gums, normal dentition. Oropharynx, no cyanosis, no pallor. NECK: Carotid arteries, bilateral normal upstroke, no bruits, no thrills. JUGULAR VEINS: No jugular venous pressure or distention. CERVICAL LYMPH NODES: Nontender, nonenlarged. THYROID: Not enlarged. Nontender. No nodules. LUNGS: Respiratory effort, unlabored. CHEST: Normal curvature. No thoracic deformity. No chest wall tenderness. Percussion, resonant. Auscultation, clear. No wheezes, no rales, no rhonchi. CARDIOVASCULAR: Precordial exam, nondisplaced. No heaves or pericardial thrills. Rate and rhythm, regular. Heart sounds, normal S1, normal S2. No S3, no gallop, no rub. Systolic murmur, not heard. Diastolic murmur, not heard. EXTREMITIES: No cyanosis, no edema. Peripheral pulses, full and equal in all HISTORY AND PHYSICAL [id number] ADRIANA MARCELINO extremities, except as noted. No bruits appreciated. ABDOMEN: Soft, nondistended. Normal aorta. No bruit. Nontender. No masses. Liver, nontender, no hepatomegaly. Spleen, nontender, no splenomegaly. MUSCULOSKELETAL: No joint tenderness. No joint swelling. No erythema. NEUROLOGICAL: Normal gait, normal strength, normal tone. SKIN: Warm and dry. OVERALL IMPRESSION: Anginal symptomatology in an unstable fashion. We will proceed with coronary angiography. Further care depends on the findings of the angiography. TRANSINT:[id number] Voice Confirmation ID: [id number] DOCUMENT ID: [id number] VAIBHAV WEAVER MD at 2002 CC: [id number] DICTATION DATE: 01/14/18 1514 PILLOW AGENT: 01/14/18 1700 [facility] [address] [place] [address]
--- NOTE | ~2018-01-14 | OP ---
PATIENT NAME: ADRIANA MARCELINO MEDICAL RECORD: [id number] :38 LOCATION:D.M2 D.2117 ADMISSION DATE: SURGEON: VAIBHAV WEAVER MD DATE OF OPERATION: 01/14/2018 PROCEDURES: 1. PTCA stent LAD. 2. Left heart catheterization. 3. Selective coronary angiography. DESCRIPTION OF PROCEDURE: After informed consent obtained and after a detailed description of the risks, benefits as well as alternative therapies, the patient elected to proceed with angiogram and angioplasty. The right femoral area was prepped and draped in normal sterile fashion. Right femoral artery was cannulated via modified Seldinger technique with placement of 6-Kinyarwanda sheath. All catheters exchanged through this sheath. FINDINGS: The left ventriculogram was performed in standard 30-degree ESCOBAR view, reveals good cardiac wall motion throughout all segments. Overall ejection fraction estimated 60%. SELECTIVE CORONARY ANGIOGRAPHY: 1. Left main is with no significant angiographic disease. 2. Left anterior descending has previously placed stents, these are widely patent. There is, however, a new 80% stenosis in mid vessel. 3. The left circumflex has moderate irregularities, but no flow-limiting stenosis. 4. Right coronary has moderate irregularities, but no flow-limiting stenosis. PTCA STENT OF THE LAD: The stent used was a 3.0 x 18 mm Deep. Result was 0% residual stenosis. OVERALL IMPRESSION: Successful percutaneous transluminal coronary angioplasty stent of the left anterior descending going from 80% initial stenosis to 0% residual. TRANSINT:[id number] Voice Confirmation ID: [id number] DOCUMENT ID: [id number] VAIBHAV WEAVER MD at 2002 CC: [id number] DICTATION DATE: 01/14/181657 SACK MAKER: 01/14/[address] [facility] [address] [place] [address]
[~2018-01-14 14:19] MED LIST changes: -LEVOTHYROXINE50 MCG PO; -NORVASC10 MG PO
[2018-01-14 15:05] LABS: BASOPHILS 1.3 % (0-2); EOSINOPHILS 5.3 % (0-7); HEMATOCRIT 30.1 % (36.0-48.0); HEMOGLOBIN 9.7 g/dL (12-16); IMMATURE GRANULOCYTES 0.2 % (0-5); LYMPHOCYTES 17.7 % (15-50); MCH 31.1 pg (26.0-34.0); MCHC 32.2 g/dL (31.0-37.0); MCV 96.5 fL (80.0-100.0); MEAN PLATELET VOLUME 11.2 fL (7.4-10.4); MONOCYTES 9.1 % (2-11); NEUTROPHILS 66.4 % (40-80); PLATELET COUNT 138 10x3/uL (130-400); RBC 3.12 10x6/uL (4.00-5.40); RDW 15.3 % (11.5-14.5); WBC 4.7 10x3/uL (4.8-10.8)
[2018-01-14 15:21] LABS: ALBUMIN 3.4 g/dL (3.4-5.0); ALKALINE PHOSPHATASE 100 U/L (46-116); ALT (SGPT) 16 U/L (10-68); BILIRUBIN - TOTAL 0.19 mg/dL (0.2-1.3); CALC OSMOLALITY 281 mosm/kg (275-300); CALCIUM 8.2 mg/dL (8.5-10.1); CARBON DIOXIDE 26.5 mmol/L (21.0-32.0); CHLORIDE - SERUM 101 mmol/L (98-107); CREATININE - SERUM 2.2 mg/dL (0.6-1.3); GLUCOSE 132 mg/dL (74-106); POTASSIUM - SERUM 4.3 mmol/L (3.5-5.1); PROTEIN - SERUM 6.8 g/dL (6.4-8.2); SODIUM 137 mmol/L (136-145); UREA NITROGEN 30 mg/dL (7-18); eGFR NON AFRICAN AMERICAN 23 mL/min (90-120)
[2018-01-14 15:28] LABS: CREATINE KINASE 131 UL (21-215); TROPONIN-I < 0.017 ng/mL (0.000-0.060)
[2018-01-14 17:46] VITALS: BP 137/66; Ht 152.4 cm; Wt 87.8 kg
[2018-01-14 20:33] VITALS: BP 125/58
[2018-01-14] MEDS ORDERED: LEVOTHYROXINE50 MCG PO (22:27)
[2018-01-14] MEDS ORDERED: NORVASC10 MG PO (22:27)
[2018-01-15 00:46] VITALS: BP 136/51
[2018-01-15 05:43] VITALS: BP 120/69
[2018-01-15] MEDS ORDERED: PLAVIX75 MG PO (08:18)
[2018-01-15 08:49] VITALS: BP 172/64
== END 2018-01-15 17:50 ==
LOC: D.CATH 14:19 → D.M2 14:19 → D.ER 14:19 → D.M2 16:57 → D.CATH 01-15 17:50
PROVIDERS: Emergency Medicine
DX: I25.110 Atherosclerotic heart disease of native coronary artery with unstable angina pectoris (principal); Z95.5 Presence of coronary angioplasty implant and graft; I10 Essential (primary) hypertension; E78.5 Hyperlipidemia, unspecified; Z01.812 Encounter for preprocedural laboratory examination
CPT/HCPCS: 93458; C9600

== ENCOUNTER → 2018-02-16 09:46 | Outpatient (CLI) | payer MEDICARE ==
[2018-01-14 17:46] VITALS: BMI 36.7
[~2018-02-16 09:46] MED LIST changes: +CEFUROXIME500 MG PO; +LEVOTHYROXINE50 MCG PO; +NITRO-DUR0.6 MG TRANSDERM; +NORVASC10 MG PO; +TOBRADEX EYE DRO5 ML EACH EYE
== END | disposition home or self-care (01) ==
LOC: D.US 09:46
DX: N28.9 Disorder of kidney and ureter, unspecified (principal)

== ENCOUNTER 2018-03-02 22:11 | Emergency (ER) | payer MEDICARE ==
[~2018-03-02] VITALS: Ht 152.4 cm; Wt 84.1 kg
[~2018-03-02 22:11] MED LIST changes: -CEFUROXIME500 MG PO; -NITRO-DUR0.6 MG TRANSDERM; -TOBRADEX EYE DRO5 ML EACH EYE
[2018-03-02 22:14] VITALS: Ht 152.4 cm; Wt 84.1 kg
[2018-03-02 22:54] LABS: BASOPHILS 1.4 % (0-2); EOSINOPHILS 4.3 % (0-7); HEMATOCRIT 25.2 % (36.0-48.0); HEMOGLOBIN 8.3 g/dL (12-16); IMMATURE GRANULOCYTES 0.5 % (0-5); LYMPHOCYTES 16.2 % (15-50); MCH 32.5 pg (26.0-34.0); MCHC 32.9 g/dL (31.0-37.0); MCV 98.8 fL (80.0-100.0); MEAN PLATELET VOLUME 10.6 fL (7.4-10.4); MONOCYTES 10.2 % (2-11); NEUTROPHILS 67.4 % (40-80); PLATELET COUNT 120 10x3/uL (130-400); RBC 2.55 10x6/uL (4.00-5.40); RDW 15.1 % (11.5-14.5); WBC 4.2 10x3/uL (4.8-10.8)
[2018-03-02 23:05] LABS: ANION GAP 9.5 mmol/L (8-16); BILIRUBIN - TOTAL 0.23 mg/dL (0.2-1.3); CALCIUM 7.8 mg/dL (8.5-10.1); CARBON DIOXIDE 27.4 mmol/L (21.0-32.0); CREATININE - SERUM 2.2 mg/dL (0.6-1.3); POTASSIUM - SERUM 3.9 mmol/L (3.5-5.1); PROTEIN - SERUM 6.2 g/dL (6.4-8.2)
[2018-03-02 23:31] LABS: APPEARANCE CLOUDY (CLEAR); BILIRUBIN NEGATIVE (NEGATIVE); COLOR YELLOW (YELLOW); GLUCOSE NEGATIVE (NEGATIVE); KETONE NEGATIVE (NEGATIVE); NITRITE NEGATIVE (NEGATIVE); PROTEIN 3+ mg/dL (NEGATIVE); UROBILINOGEN NORMAL (NORMAL)
[2018-03-02 23:32] LABS: AMORPHOUS SEDIMENT >1+ /lpf (NONE SEEN); BACTERIA MODERATE /hpf (NONE SEEN); EPITHELIAL CELLS 0-5 /hpf (0-5); RED CELLS - URINE 0-5 /hpf (0-5); WHITE CELLS - URINE 0-5 /hpf (0-5)
[2018-03-03 02:34] VITALS: BP 189/67
== END 2018-03-03 02:32 | disposition home or self-care (01) ==
LOC: D.ER 22:11
PROVIDERS: Emergency Medicine
DX: K64.8 Other hemorrhoids (principal); E11.9 Type 2 diabetes mellitus without complications; I10 Essential (primary) hypertension

== ENCOUNTER 2018-04-01 08:46 | Outpatient (CLI) | payer MEDICARE ==
[~2018-04-01] VITALS: Ht 152.4 cm; Wt 81.8 kg
[2018-04-01 11:50] VITALS: BP 170/71; Ht 152.4 cm; Wt 81.8 kg
[2018-04-02] MEDS ORDERED: NITRO-DUR0.6 MG TRANSDERM (12:14)
== END 2018-04-01 15:23 | disposition home or self-care (01) ==
LOC: D.OPS 08:46
DX: D64.9 Anemia, unspecified (principal); Z01.812 Encounter for preprocedural laboratory examination

== ENCOUNTER 2018-04-01 19:08 | Inpatient (IN) | payer MEDICARE ==
[~2018-04-01] VITALS: Ht 152.4 cm; Wt 81.6 kg
[2018-04-01 19:40] LABS: BASOPHILS 0.4 % (0-2); EOSINOPHILS 2.2 % (0-7); IMMATURE GRANULOCYTES 0.3 % (0-5); LYMPHOCYTES 5.1 % (15-50); MCH 31.3 pg (26.0-34.0); MCHC 33.3 g/dL (31.0-37.0); MCV 93.8 fL (80.0-100.0); MEAN PLATELET VOLUME 10.6 fL (7.4-10.4); MONOCYTES 7.6 % (2-11); NEUTROPHILS 84.4 % (40-80); RBC 2.88 10x6/uL (4.00-5.40); RDW 16.8 % (11.5-14.5); WBC 6.9 10x3/uL (4.8-10.8)
[2018-04-01 19:51] LABS: PLATELET COUNT 159 10x3/uL (130-400)
[2018-04-01 19:58] LABS: APPEARANCE HAZY (CLEAR); APTT 28.5 SECONDS (22.8-39.4); BILIRUBIN NEGATIVE (NEGATIVE); COLOR STRAW (YELLOW); GLUCOSE NEGATIVE (NEGATIVE); INR 1.18 (0.85-1.17); KETONE NEGATIVE (NEGATIVE); NITRITE NEGATIVE (NEGATIVE); PROTEIN 2+ mg/dL (NEGATIVE); PROTIME 14.6 SECONDS (11.6-15.0); UROBILINOGEN NORMAL (NORMAL)
[2018-04-01 19:59] LABS: BACTERIA MANY /hpf (NONE SEEN); EPITHELIAL CELLS 0-5 /hpf (0-5); RED CELLS - URINE 0-5 /hpf (0-5)
[2018-04-01 20:05] LABS: ALBUMIN 2.8 g/dL (3.4-5.0); ANION GAP 14.1 mmol/L (8-16); BILIRUBIN - TOTAL 0.45 mg/dL (0.2-1.3); CALCIUM 7.9 mg/dL (8.5-10.1); CARBON DIOXIDE 25.6 mmol/L (21.0-32.0); CREATININE - SERUM 2.3 mg/dL (0.6-1.3); POTASSIUM - SERUM 4.7 mmol/L (3.5-5.1); PROTEIN - SERUM 6.7 g/dL (6.4-8.2)
[2018-04-02 01:07] VITALS: BP 180/72; BMI 35.2
[2018-04-02 04:40] VITALS: BP 190/69
[2018-04-02 07:22] LABS: EOSINOPHILS 6.1 % (0-7); HEMATOCRIT 26.2 % (36.0-48.0); HEMOGLOBIN 8.8 g/dL (12-16); IMMATURE GRANULOCYTES 0.6 % (0-5); LYMPHOCYTES 9.3 % (15-50); MCH 31.4 pg (26.0-34.0); MCHC 33.6 g/dL (31.0-37.0); MCV 93.6 fL (80.0-100.0); MEAN PLATELET VOLUME 10.7 fL (7.4-10.4); MONOCYTES 7.9 % (2-11); NEUTROPHILS 75.1 % (40-80); PLATELET COUNT 143 10x3/uL (130-400)
[2018-04-02 07:23] LABS: WBC 4.9 10x3/uL (4.8-10.8)
[2018-04-02 07:56] LABS: ANION GAP 14.9 mmol/L (8-16); CARBON DIOXIDE 24.9 mmol/L (21.0-32.0); CREATININE - SERUM 2.1 mg/dL (0.6-1.3)
[2018-04-02 07:59] LABS: POTASSIUM - SERUM 3.8 mmol/L (3.5-5.1)
[2018-04-02 08:05] VITALS: BP 191/59
[2018-04-02 11:37] VITALS: BP 191/71
[2018-04-02] MEDS ORDERED: NITRO-DUR0.6 MG TRANSDERM (12:14)
[2018-04-02 14:05] LABS: HEMATOCRIT 28.4 % (36.0-48.0); HEMOGLOBIN 9.3 g/dL (12-16)
[2018-04-02 14:35] VITALS: Ht 152.4 cm; Wt 81.6 kg
[2018-04-02 16:48] VITALS: BP 185/74
[2018-04-02 21:30] VITALS: BP 176/73
[2018-04-02 22:07] LABS: HEMATOCRIT 27.2 % (36.0-48.0); HEMOGLOBIN 8.9 g/dL (12-16)
[2018-04-03 05:15] VITALS: BP 184/67
[2018-04-03 05:18] LABS: BASOPHILS 0.7 % (0-2); EOSINOPHILS 7.8 % (0-7); HEMATOCRIT 26.4 % (36.0-48.0); HEMOGLOBIN 8.6 g/dL (12-16); IMMATURE GRANULOCYTES 0.6 % (0-5); LYMPHOCYTES 8.8 % (15-50); MCH 30.9 pg (26.0-34.0); MCHC 32.6 g/dL (31.0-37.0); MEAN PLATELET VOLUME 11.6 fL (7.4-10.4); MONOCYTES 11.2 % (2-11); NEUTROPHILS 70.9 % (40-80); PLATELET COUNT 170 10x3/uL (130-400); RBC 2.78 10x6/uL (4.00-5.40); RDW 16.3 % (11.5-14.5); WBC 5.4 10x3/uL (4.8-10.8)
[2018-04-03 05:32] LABS: ALBUMIN 2.5 g/dL (3.4-5.0); ANION GAP 12.1 mmol/L (8-16); BILIRUBIN - TOTAL 0.3 mg/dL (0.2-1.3); CALCIUM 7.5 mg/dL (8.5-10.1); CARBON DIOXIDE 25.1 mmol/L (21.0-32.0); POTASSIUM - SERUM 4.2 mmol/L (3.5-5.1); PROTEIN - SERUM 5.6 g/dL (6.4-8.2)
[2018-04-03 14:36] LABS: HEMATOCRIT 28.9 % (36.0-48.0); HEMOGLOBIN 9.3 g/dL (12-16)
[2018-04-03 21:50] VITALS: BP 185/74
[2018-04-03 22:47] LABS: HEMATOCRIT 30.7 % (36.0-48.0); HEMOGLOBIN 10.2 g/dL (12-16)
[2018-04-04 05:15] VITALS: BP 99/46
[2018-04-04 06:13] LABS: BASOPHILS 0.6 % (0-2); EOSINOPHILS 7.1 % (0-7); HEMATOCRIT 29.4 % (36.0-48.0); HEMOGLOBIN 9.6 g/dL (12-16); IMMATURE GRANULOCYTES 0.4 % (0-5); LYMPHOCYTES 10.9 % (15-50); MCHC 32.7 g/dL (31.0-37.0); MCV 94.8 fL (80.0-100.0); MEAN PLATELET VOLUME 11.3 fL (7.4-10.4); MONOCYTES 8.6 % (2-11); NEUTROPHILS 72.4 % (40-80); PLATELET COUNT 163 10x3/uL (130-400); RDW 17.5 % (11.5-14.5); WBC 5.2 10x3/uL (4.8-10.8)
[2018-04-04 06:31] LABS: ALBUMIN 2.2 g/dL (3.4-5.0); ANION GAP 11.9 mmol/L (8-16); BILIRUBIN - TOTAL 0.25 mg/dL (0.2-1.3); CALCIUM 7.6 mg/dL (8.5-10.1); CARBON DIOXIDE 23.4 mmol/L (21.0-32.0); POTASSIUM - SERUM 4.3 mmol/L (3.5-5.1); PROTEIN - SERUM 5.9 g/dL (6.4-8.2)
[2018-04-04 08:29] VITALS: BP 171/61
[2018-04-04 12:04] VITALS: BP 191/67
[2018-04-04 14:33] LABS: HEMATOCRIT 37.1 % (36.0-48.0); HEMOGLOBIN 11.8 g/dL (12-16)
[2018-04-04 16:13] VITALS: BP 115/55
[2018-04-04 16:24] VITALS: BP 158/67
[2018-04-04 20:00] VITALS: BP 165/77
[2018-04-04 23:10] LABS: HEMATOCRIT 29.7 % (36.0-48.0); HEMOGLOBIN 9.6 g/dL (12-16)
[2018-04-05 04:44] LABS: BASOPHILS 0.5 % (0-2); EOSINOPHILS 8.2 % (0-7); HEMATOCRIT 30.8 % (36.0-48.0); HEMOGLOBIN 10.1 g/dL (12-16); IMMATURE GRANULOCYTES 0.7 % (0-5); MCHC 32.8 g/dL (31.0-37.0); MCV 94.5 fL (80.0-100.0); MEAN PLATELET VOLUME 11.4 fL (7.4-10.4); MONOCYTES 10.1 % (2-11); NEUTROPHILS 69.5 % (40-80); PLATELET COUNT 162 10x3/uL (130-400); RBC 3.26 10x6/uL (4.00-5.40); RDW 16.8 % (11.5-14.5); WBC 5.5 10x3/uL (4.8-10.8)
[2018-04-05 04:59] LABS: ANION GAP 14.8 mmol/L (8-16); CALCIUM 8.2 mg/dL (8.5-10.1); CARBON DIOXIDE 24.3 mmol/L (21.0-32.0); CREATININE - SERUM 1.9 mg/dL (0.6-1.3); POTASSIUM - SERUM 4.1 mmol/L (3.5-5.1)
[2018-04-05 06:18] VITALS: BP 198/72
[2018-04-05] MEDS ORDERED: TOBRADEX EYE DRO5 ML EACH EYE (07:09)
[2018-04-05] MEDS ORDERED: CEFUROXIME500 MG PO (07:09)
[2018-04-05] MEDS ORDERED: FERROUS SULFAT325 MG PO (07:11)
[2018-04-05 08:05] VITALS: BP 189/67
[2018-04-05 11:29] LABS: ERYTHROPOIETIN 10.5 mIU/mL (2.6-18.5)
[2018-04-05 15:29] LABS: SPE - A/G RATIO 1.1 (0.7-1.7); SPE - ALPHA-1 GLOBULIN 0.3 g/dL (0.0-0.4); SPE - BETA GLOBULIN 0.8 g/dL (0.7-1.3); SPE - GAMMA GLOBULIN 0.8 g/dL (0.4-1.8); SPE - M-SPIKE Not Observed g/dL (Not Observed); SPE - TOTAL PROTEIN 5.8 g/dL (6.0-8.5)
== END 2018-04-05 10:04 | disposition home or self-care (01) | DRG 872 ==
LOC: D.ER 19:08 → D.MS 22:25
PROVIDERS: Emergency Medicine; Family Medicine; Internal Medicine Medical Oncology
DX: A41.9 Sepsis, unspecified organism (principal); N39.0 Urinary tract infection, site not specified; N18.4 Chronic kidney disease, stage 4 (severe); I24.8 Other forms of acute ischemic heart disease; D62 Acute posthemorrhagic anemia; E11.9 Type 2 diabetes mellitus without complications; E11.22 Type 2 diabetes mellitus with diabetic chronic kidney disease; I12.9 Hypertensive chronic kidney disease with stage 1 through stage 4 chronic kidney disease, or unspecified chronic kidney disease; R41.3 Other amnesia; R50.84 Febrile nonhemolytic transfusion reaction; J32.9 Chronic sinusitis, unspecified

== ENCOUNTER 2018-06-08 22:31 | Emergency (ER) | payer MEDICARE ==
[~2018-06-08] VITALS: Ht 152.4 cm; Wt 81.4 kg
[~2018-06-08 22:31] MED LIST changes: +CEFUROXIME500 MG PO; +NITRO-DUR0.6 MG TRANSDERM; +TOBRADEX EYE DRO5 ML EACH EYE
[2018-06-08 22:34] VITALS: Ht 152.4 cm; Wt 81.4 kg
[2018-06-08 23:34] LABS: HEMATOCRIT 26.6 % (36.0-48.0); HEMOGLOBIN 8.9 g/dL (12-16); LYMPHOCYTES 15.8 % (15-50); MCH 33.5 pg (26.0-34.0); MCHC 33.5 g/dL (31.0-37.0); MEAN PLATELET VOLUME 10.1 fL (7.4-10.4); NEUTROPHILS 71.1 % (40-80); PLATELET COUNT 131 10x3/uL (130-400); RBC 2.66 10x6/uL (4.00-5.40); RDW 16.1 % (11.5-14.5); WBC 4.9 10x3/uL (4.8-10.8)
[2018-06-08 23:42] LABS: ALBUMIN 3.2 g/dL (3.4-5.0); ALKALINE PHOSPHATASE 79 U/L (46-116); ALT (SGPT) 22 U/L (10-68); BILIRUBIN - TOTAL 0.32 mg/dL (0.2-1.3); CALC OSMOLALITY 268 mosm/kg (275-300); CALCIUM 8.6 mg/dL (8.5-10.1); CHLORIDE - SERUM 97 mmol/L (98-107); CREATININE - SERUM 2.2 mg/dL (0.6-1.3); GLUCOSE 101 mg/dL (74-106); POTASSIUM - SERUM 4.2 mmol/L (3.5-5.1); PROTEIN - SERUM 6.5 g/dL (6.4-8.2); SODIUM 130 mmol/L (136-145); UREA NITROGEN 34 mg/dL (7-18); eGFR NON AFRICAN AMERICAN 23 mL/min (90-120)
[2018-06-08 23:53] LABS: CKMB 1.4 U/L (0.0-3.6); CREATINE KINASE 70 UL (21-215)
[2018-06-08 23:55] LABS: TROPONIN-I < 0.017 ng/mL (0.000-0.060)
[2018-06-09 02:46] VITALS: BP 178/78
== END 2018-06-09 02:46 | disposition home or self-care (01) ==
LOC: D.ER 22:31
PROVIDERS: Family Medicine
DX: R51 Headache (principal); E11.9 Type 2 diabetes mellitus without complications; I10 Essential (primary) hypertension; R00.1 Bradycardia, unspecified

== ENCOUNTER → 2018-06-28 16:39 | Outpatient (CLI) | payer MEDICARE ==
[2018-06-08 22:34] VITALS: BMI 35.0
== END | disposition home or self-care (01) ==
LOC: D.MAMMO 08:30
DX: Z12.31 Encounter for screening mammogram for malignant neoplasm of breast (principal)

== ENCOUNTER 2018-07-22 18:59 | Emergency (ER) | payer MEDICARE ==
[~2018-07-22] VITALS: Ht 152.4 cm; Wt 102.3 kg
[2018-07-22 19:19] VITALS: Ht 152.4 cm; Wt 102.3 kg
[2018-07-22 22:45] VITALS: BP 152/55
== END 2018-07-22 22:25 ==
LOC: D.ER 18:59
DX: S70.01XA Contusion of right hip, initial encounter (principal); W18.30XA Fall on same level, unspecified, initial encounter; Y93.89 Activity, other specified; Y92.019 Unspecified place in single-family (private) house as the place of occurrence of the external cause; E11.9 Type 2 diabetes mellitus without complications; I10 Essential (primary) hypertension

== ENCOUNTER 2018-08-08 17:06 | Emergency (ER) | payer MEDICARE ==
[~2018-08-08] VITALS: Ht 152.4 cm; Wt 80.9 kg
[2018-08-08 17:12] VITALS: Ht 152.4 cm; Wt 80.9 kg
[2018-08-08] MEDS ORDERED: CATAPRES0.1 MG PO (17:15)
[2018-08-08] MEDS ORDERED: NEURONTIN 300300 MG PO (17:17)
[2018-08-08] MEDS ORDERED: NORMODYNE / TR100 MG PO (17:18)
[2018-08-08] MEDS ORDERED: RANEXA500 MG PO (17:20)
[2018-08-08] MEDS ORDERED: ULTRAM50 MG PO (17:21)
[2018-08-08] MEDS ORDERED: ZANAFLEX2 M1 PO (17:21)
[2018-08-08 20:04] VITALS: BP 185/72
== END 2018-08-08 20:04 | disposition home or self-care (01) ==
LOC: D.ER 17:06
DX: S00.83XA Contusion of other part of head, initial encounter (principal); W18.2XXA Fall in (into) shower or empty bathtub, initial encounter; Y93.E1 Activity, personal bathing and showering; Y92.121 Bathroom in nursing home as the place of occurrence of the external cause; S00.81XA Abrasion of other part of head, initial encounter; Z79.01 Long term (current) use of anticoagulants; E11.9 Type 2 diabetes mellitus without complications; I10 Essential (primary) hypertension

== ENCOUNTER 2018-09-06 04:57 | Observation (INO) | payer MEDICARE ==
[~2018-09-06] VITALS: Ht 152.4 cm; Wt 86.2 kg
[~2018-09-06 04:57] MED LIST changes: +ARICEPT23 MG PO; -ARICEPT5 MG PO; +CATAPRES0.1 MG PO; +NEURONTIN 300300 MG PO; +RANEXA500 MG PO
[2018-09-06] MEDS ORDERED: ZANTAC300 MG PO (05:21)
[2018-09-06] MEDS ORDERED: RESTORIL15 MG PO (05:21)
[2018-09-06] MEDS ORDERED: VOLTAREN100 GM (05:22)
[2018-09-06 05:46] LABS: BASOPHILS 1.5 % (0-2); EOSINOPHILS 5.2 % (0-7); HEMATOCRIT 23.4 % (36.0-48.0); IMMATURE GRANULOCYTES 0.5 % (0-5); LYMPHOCYTES 13.8 % (15-50); MCH 34.2 pg (26.0-34.0); MCHC 32.1 g/dL (31.0-37.0); MCV 106.8 fL (80.0-100.0); MEAN PLATELET VOLUME 10.7 fL (7.4-10.4); MONOCYTES 9.1 % (2-11); NEUTROPHILS 69.9 % (40-80); PLATELET COUNT 137 10x3/uL (130-400); RBC 2.19 10x6/uL (4.00-5.40); RDW 14.7 % (11.5-14.5); WBC 4.1 10x3/uL (4.8-10.8)
[2018-09-06 05:50] LABS: HEMOGLOBIN 7.5 g/dL (12-16)
[2018-09-06 06:06] LABS: APTT 31.4 SECONDS (22.8-39.4); INR 1.2 (0.85-1.17); PROTIME 14.7 SECONDS (11.6-15.0)
[2018-09-06 06:10] LABS: ALBUMIN 3.2 g/dL (3.4-5.0); ANION GAP 15.3 mmol/L (8-16); BILIRUBIN - TOTAL 0.28 mg/dL (0.2-1.3); CARBON DIOXIDE 24.6 mmol/L (21.0-32.0); CREATININE - SERUM 2.4 mg/dL (0.6-1.3); POTASSIUM - SERUM 4.9 mmol/L (3.5-5.1); PROTEIN - SERUM 6.2 g/dL (6.4-8.2)
[2018-09-06 06:27] VITALS: BP 174/55
--- NOTE | 2018-09-06 07:28 | NUR ---
HAND-OFF REPORT RECEIVED FROM OFF GOING NURSE PETROS Navarro RN. BLOOD CONSENT PAPERWORK SIGNED AND PLACED ON PT'S CHART. NS 250ML ORDERED FOR ADMINISTRATION OF ORDERED BLOOD PRODUCT ADMINISTRATION.
--- NOTE | 2018-09-06 07:46 | NUR ---
ORDERED BLOOD TRANSFUSION INITIATED AT 0745.
[2018-09-06 08:00] VITALS: BP 180/60
--- NOTE | 2018-09-06 08:03 | NUR ---
PT ASSISTED TO THE BATHROOM VIA WHEELCHAIR AND BACK INTO BED. PT AWARE SHE IS NPO UNTIL NOTIFIED OTHERWISE. PER EDP DR. ALANIS AT APPROX. 0700, DR. LOWERY AWARE OF ORDERED CONSULT.
--- NOTE | 2018-09-06 09:17 | NUR ---
THIS NURSE SPOKE WITH DR. KELSEY, ADMITTING MD. NURSE REPORTED BP OF 203/76. NURSE INSTRUCTED TO ADMINISTER HOME MEDICATION NORVASC 10MG PO.
--- NOTE | 2018-09-06 09:47 | NUR ---
FIRST ORDERED UNIT OF BLOOD COMPLETE AT 0930. WILL OBTAIN SECOND ORDERED UNIT AND ADMINISTER SHORTLY.
--- NOTE | 2018-09-06 10:18 | NUR ---
SECOND ORDERED BLOOD TRANSFUSION INITIATED AT 1020.
[2018-09-06 10:58] VITALS: BP 199/77; BMI 37.1
--- NOTE | 2018-09-06 11:51 | NUR ---
PT ASSISTED TO THE BATHROOM AND BACK INTO BED, ORDERED BLOOD TRANSFUSION CONTINUES TO INFUSE.
--- NOTE | 2018-09-06 12:03 | NUR ---
WAITING FOR REDRAW OF CBC UNTIL BLOOD TRANSFUSION COMPLETE. PT STABLE AT THIS TIME.
--- NOTE | 2018-09-06 12:19 | NUR ---
PT MOVED FROM ED ROOM E11 TO ED ROOM E4. HAND OFF REPORT GIVEN TO DEIDRA HICKMAN.
--- NOTE | 2018-09-06 12:59 | NUR ---
SECOND ORDERED BLOOD TRANSFUSION THAT WAS IITIATED AT 1020 COMPLETE AT 1231.
[2018-09-06 13:35] LABS: HEMATOCRIT 31.8 % (36.0-48.0); HEMOGLOBIN 10.5 g/dL (12-16); MCH 32.4 pg (26.0-34.0); MCV 98.1 fL (80.0-100.0); MEAN PLATELET VOLUME 11.1 fL (7.4-10.4); PLATELET COUNT 134 10x3/uL (130-400); RBC 3.24 10x6/uL (4.00-5.40); RDW 20.4 % (11.5-14.5); WBC 6.8 10x3/uL (4.8-10.8)
--- NOTE | 2018-09-06 14:11 | NUR ---
78 YO FEMALE PATIENT RECIEVED FROM ER VIA STRETCHER WITH DIAGNOSIS OF GI BLEED WITH BRIGHT RED BLEEDING WITH BM THIS AM WHILE AT HOME. PATIENT IS FROM [facility]. IV SL 20G RIGHT FOREARM. PATIENT ALERT AND ORIENTED. NEEDS ASSISTANCE WITH AMBULATION. PATIENT RECIEVED 2 UNITS OF PRBC
[2018-09-06 14:43] LABS: EOSINOPHILS 1 % (0-7); LYMPHOCYTES 6 % (15-50); MONOCYTES 2 % (2-11); NEUTROPHILS 91 % (40-80); PLATELET ESTIMATE NORMAL
[2018-09-06 15:07] VITALS: BP 176/51
--- NOTE | 2018-09-06 17:28 | MORECARE ---
CASE MANAGEMENT DISCHARGE SUMMARY PATIENT: ADRIANA MARCELINO UNIT: [id number] ADM DATE: 09/06/18 AGE: 78 : 39 SEX: F ROOM/BED: D.[facility]3 AUTHOR: SHANELLE DONIS PHYSICIAN: REFERRING PHYSICIAN: JAMES HIGGINS MD DATE OF SERVICE: 09/06/18 Discharge Plan Patient Name: ADRIANA AMRCELINO [facility] [facility] 1940 Planned Disposition: Anticipated Discharge Date: Discharge Date: Expected LOS: Initial Reviewer: [email or web address] Initial Review Date: 09/06/2018 Generated: 09/06/18 6:28 pm Comments DCP- Discharge Planning Updated by [email or web address]: Eliza Mcclelland on 09/06/18 4:[address] CM met with patient @bedside in ER to discuss dc plans/needs. Patient is alert/oriented, gives permission to speak with spouse in room. States she lives at [facility] alone (assisted living). PCP: Dr. Richter. Pharmacy: [facility] arranges. Emergency contact: Emma Alejandro (unsure of contact information).. Patient states she is Independent in her care at home. Denies having HHS. DME: walker, electric scooter (uses mostly), Glucometer. States she has a difficult time ambulating, but can with stand-by assist. States at this time, she does not require additional services and feels safe returning to her previous environment. Patient denies being hospitalized within the past 30 days. States she will REQUIRE TRANSPORTATION upon discharge. CM will follow and assist PRN. Patient Name: ADRIANA MARCELINO Page [phone] at 1728 All edits/amendments must be made on the electronic document DICTATION DATE: 09/06/181727 CONSTRUCTION TRADES TEACHER: ERNA 09/06/181727 RPT#: [id number] DC DATE: STATUS: ADM IN [facility] [address] [place] [address] END OF REPORT
[2018-09-06 19:20] LABS: % SATURATION 86 % (15-55); IRON 160 ug/dl (35-150); TOTAL IRON BIND CAPACITY 186 ug/dl (260-445); UNSAT IRON BIND CAPACITY 26 ug/dl (150-375)
[2018-09-06 20:00] VITALS: BP 195/58
--- NOTE | 2018-09-06 20:36 | NUR ---
1930)REC'D.PATIENT ANGRY STATES NO ONE TOLD ME I COULDN'T HAVE ANYTHING TO EAT OR DRINK. WHY? EXPLAINED WHEN YOU'RE HAVING RECTAL BLEEDING ITS NOT UNUSUAL FOR DR TO WITHHOLD FOOD NOT TO POSSIBLY IRRITATE THE COLON ANY FURTHER AND CAUSE BLEEDING TO START AGAIN.OR SOMETIMES ONCE HE LOOKS AT ALL YOUR TEST RESULTS HE MAY DECIDE TO A PROCEDURE THAT REQUIRES YOU NOT TO EAT. IF YOU'VE EATEN SHAISTA PUT YOU A DAY BEHIND
--- NOTE | 2018-09-06 22:49 | NUR ---
RESTING IN BED NO S/S OF DISTRESS NO NEEDS RESPRATIONS EVEN AND UNLABORED CALL LIGHT IN REACH. CHECKED OFTEN FOR NEEDS AND SAFETY.
[2018-09-07] VITALS: BP 211/71
[2018-09-07 04:00] VITALS: BP 182/56
[2018-09-07 06:06] LABS: BASOPHILS 0.9 % (0-2); EOSINOPHILS 4.1 % (0-7); HEMATOCRIT 29.1 % (36.0-48.0); HEMOGLOBIN 9.5 g/dL (12-16); IMMATURE GRANULOCYTES 0.7 % (0-5); LYMPHOCYTES 11.3 % (15-50); MCH 32.2 pg (26.0-34.0); MCHC 32.6 g/dL (31.0-37.0); MCV 98.6 fL (80.0-100.0); MEAN PLATELET VOLUME 11.5 fL (7.4-10.4); MONOCYTES 10.2 % (2-11); NEUTROPHILS 72.8 % (40-80); PLATELET COUNT 139 10x3/uL (130-400); RBC 2.95 10x6/uL (4.00-5.40)
[2018-09-07 06:22] LABS: ANION GAP 15.9 mmol/L (8-16); BILIRUBIN - TOTAL 0.61 mg/dL (0.2-1.3); CALCIUM 8.4 mg/dL (8.5-10.1); CREATININE - SERUM 2.1 mg/dL (0.6-1.3); MAGNESIUM - SERUM 1.9 mg/dL (1.8-2.4); POTASSIUM - SERUM 4.9 mmol/L (3.5-5.1); PROTEIN - SERUM 6.5 g/dL (6.4-8.2)
[2018-09-07 06:24] LABS: WBC 4.6 10x3/uL (4.8-10.8)
[2018-09-07 08:00] VITALS: BP 209/67
[2018-09-07 11:26] VITALS: BMI 37.1
--- NOTE | 2018-09-07 11:26 | NUR ---
PATIENT RESTING WATCHING TV. EXCITED TO BE ABLE TO EAT AND DRINK. STOOL SPECIMEN OBTAINED EARLIER. SCD'S ON. NO FURTHER NEEDS AT THIS TIME.
[2018-09-07 12:00] VITALS: BP 195/69
[2018-09-07] MEDS ORDERED: PREPARATION H O57 GM TOPICAL (15:05)
[2018-09-07] MEDS ORDERED: ANUSOL SUPP1 SUPP RC (15:05)
--- NOTE | 2018-09-07 15:31 | MORECARE ---
CASE MANAGEMENT DISCHARGE SUMMARY PATIENT: ADRIANA MARCELINO UNIT: [id number] ADM DATE: 09/06/18 AGE: 78 : 39 SEX: F ROOM/BED: D.[facility]3 AUTHOR: SHANELLE DONIS PHYSICIAN: REFERRING PHYSICIAN: JAMES HIGGINS MD DATE OF SERVICE: 09/07/18 Discharge Plan Patient Name: ADRIANA MARCELINO Facility: [facility]:[place] : 1940 Planned Disposition: Assisted Living Anticipated Discharge Date: 09/07/18 Discharge Date: Expected LOS: 1 Initial Reviewer: [email or web address] Initial Review Date: 09/06/2018 Generated: 09/07/18 4:31 pm Comments DCP- Discharge Planning Updated by [email or web address]: Ese Oro on 09/07/18 2:[address] Patient Name: ADRIANA MARCELINO Admission Status: ER Accout number: [id number] Admission Date: 09-06-2018 : 1940 Admission Diagnosis: Attending: JAMES HIGGINS Current LOS: 1 Anticipated DC Date: 09-07-2018 Planned Disposition: Assisted Living Primary Insurance: MEDICARE A & B Discharge Planning Comments: Met with patient to discuss discharge planning, she is alone in the room. She lives at [facility] in assisted living. States she will return there. States they will pick her up in the van. I called and spoke to Marichuy and they will pick her up prior to 4:30. Zo to call report to [phone] and clinical faxed to [phone]. Patient agrees to discharge plan. Denies need for home health or DME, states she has everything she needs there. CM will continue to follow and assist with discharge planning/needs. Patcher: Ese Oro DCP- Discharge Planning Updated by [email or web address]: Eliza Mcclelland on 09/06/18 4:[address] CM met with patient @bedside in ER to discuss dc plans/needs. Patient is alert/oriented, gives permission to speak with spouse in room. States she lives at [facility] alone (assisted living). PCP: Dr. Richter. Pharmacy: [facility] arranges. Emergency contact: Emma Alejandro (unsure of contact information).. Patient states she is Independent in her care at home. Denies having HHS. DME: walker, electric scooter (uses mostly), Glucometer. States she has a difficult time ambulating, but can with stand-by assist. States at this time, she does not require additional services and feels safe returning to her previous environment. Patient denies being hospitalized within the past 30 days. States she will REQUIRE TRANSPORTATION upon discharge. CM will follow and assist PRN. External Providers External Provider: Edu Tijerina Next Contact Date: Service Request Date: Service Type: Resolution: Reviewer: Comments: Coverage Notice Reviewer: [email or web address] Larry Oro Notice Issued Date-Time: 09/07/2018 11:00 Notice Type: Medicare Outpatient Observation Notice Notice Delivered To: Patient Relationship to Patient: Self Skirt Panel Assembler Name: Delivery Method: HAND - Hand Delivered Leigha Days: Prior Verbal Notification: Recipient Understood Notice: Yes Recipient Signature: Yes Med Rec Note Co-signed by Attending: Coverage Notice Comment: SHAY explained, signed, given, copy placed in MR Last DP export: 09/06/18 4:28 p Patient Name: ADRIANA MARCELINO Page [phone] at 1531 All edits/amendments must be made on the electronic document DICTATION DATE: 09/07/181530 SOFTWARE SALES: ERNA 09/07/18 153 RPT#: [id number] DC DATE: STATUS: ADM IN [facility] [address] [place] [address] END OF REPORT
[2018-09-07 15:51] VITALS: Ht 152.4 cm; Wt 86.2 kg
--- NOTE | 2018-09-07 16:05 | NUR ---
IV THERAPY DC'ED WITH TIP INTACT. REPORT CALLED. WAITING ON TRANSPORT. NO FURTHER NEEDS AT THIS TIME
[2018-09-08 08:20] LABS: FOLATE (FOLIC ACID) - SERUM >20.0 ng/mL (>3.0)
--- NOTE | 2018-09-08 08:32 | MORECARE ---
CASE MANAGEMENT DISCHARGE SUMMARY PATIENT: ADRIANA MARCELINO UNIT: [id number] ADM DATE: 09/06/18 AGE: 78 : 39 SEX: F ROOM/BED: D.[facility]3 AUTHOR: SHANELLE DONIS PHYSICIAN: REFERRING PHYSICIAN: JAMES HIGGINS MD DATE OF SERVICE: 09/08/18 Discharge Plan Patient Name: ADRIANA MARCELINO Facility: [facility]:[place] : 1940 Planned Disposition: Assisted Living Anticipated Discharge Date: 09/07/18 Discharge Date: 09/07/2018 Expected LOS: 1 Initial Reviewer: [email or web address] Initial Review Date: 09/06/2018 Generated: 09/08/18 9:32 am Comments DCP- Discharge Planning Updated by [id number]: Ese Oro on 09/07/18 2:[address] Patient Name: ADRIANA MARCELINO Admission Status: ER Accout number: [id number] Admission Date: 09-06-2018 : 1940 Admission Diagnosis: Attending: JAMES HIGGINS Current LOS: 1 Anticipated DC Date: 09-07-2018 Planned Disposition: Assisted Living Primary Insurance: MEDICARE A & B Discharge Planning Comments: Met with patient to discuss discharge planning, she is alone in the room. She lives at [facility] in assisted living. States she will return there. States they will pick her up in the van. I called and spoke to Marichuy and they will pick her up prior to 4:30. Zo to call report to [phone] and clinical faxed to [phone]. Patient agrees to discharge plan. Denies need for home health or DME, states she has everything she needs there. CM will continue to follow and assist with discharge planning/needs. Professor Of Forest Planning: Ese Oro DCP- Discharge Planning Updated by [id number]: Eliza Mcclelland on 09/06/18 4:[address] CM met with patient @bedside in ER to discuss dc plans/needs. Patient is alert/oriented, gives permission to speak with spouse in room. States she lives at [facility] alone (assisted living). PCP: Dr. Richter. Pharmacy: [facility] arranges. Emergency contact: Emma Alejandro (unsure of contact information).. Patient states she is Independent in her care at home. Denies having HHS. DME: walker, electric scooter (uses mostly), Glucometer. States she has a difficult time ambulating, but can with stand-by assist. States at this time, she does not require additional services and feels safe returning to her previous environment. Patient denies being hospitalized within the past 30 days. States she will REQUIRE TRANSPORTATION upon discharge. CM will follow and assist PRN. Coverage Notice Reviewer: [email or web address] Larry Oro Notice Issued Date-Time: 09/07/2018 11:00 Notice Type: Medicare Outpatient Observation Notice Notice Delivered To: Patient Relationship to Patient: Self Blender Conveyor Operator Name: Delivery Method: HAND - Hand Delivered Leigha Days: Prior Verbal Notification: Recipient Understood Notice: Yes Recipient Signature: Yes Med Rec Note Co-signed by Attending: Coverage Notice Comment: SHAY explained, signed, given, copy placed in MR Last DP export: 09/07/18 2:31 p Patient Name: ADRIANA MARCELINO Page [phone] at 0832 All edits/amendments must be made on the electronic document DICTATION DATE: 09/08/18 0832 DIRECTOR SUPPLY CHAIN: ERNA 09/08/18 0832 RPT#: [id number] DC DATE:09/07/18 STATUS: DIS IN [facility] [address] [place] [address] END OF REPORT
== END 2018-09-07 16:23 | disposition home or self-care (01) ==
LOC: D.ER 04:57 → OBSVTIME 06:35 → D.MS 06:35 → D.EDHOLD 06:35 → D.MS 12:45
PROVIDERS: Family Medicine; Family Medicine Adult Medicine; ADMIT Family Medicine
DX: K64.5 Perianal venous thrombosis (principal); E11.9 Type 2 diabetes mellitus without complications; I10 Essential (primary) hypertension; K21.9 Gastro-esophageal reflux disease without esophagitis; K64.9 Unspecified hemorrhoids; I25.10 Atherosclerotic heart disease of native coronary artery without angina pectoris; E11.65 Type 2 diabetes mellitus with hyperglycemia; G30.9 Alzheimer's disease, unspecified; F02.80 Dementia in other diseases classified elsewhere, unspecified severity, without behavioral disturbance, psychotic disturbance, mood disturbance, and anxiety; I48.91 Unspecified atrial fibrillation; E66.01 Morbid (severe) obesity due to excess calories; Z68.37 Body mass index [BMI] 37.0-37.9, adult; D62 Acute posthemorrhagic anemia

== ENCOUNTER 2018-09-17 13:21 | Emergency (ER) | payer MEDICARE ==
[~2018-09-17] VITALS: Ht 152.4 cm; Wt 80.9 kg
[~2018-09-17 13:21] MED LIST changes: +ANUSOL SUPP1 SUPP RC; +PREPARATION H O57 GM TOPICAL; +VOLTAREN100 GM; +ZANTAC300 MG PO
[2018-09-17 13:23] VITALS: Ht 152.4 cm; Wt 80.9 kg
[2018-09-17 14:05] LABS: BASOPHILS 1.2 % (0-2); EOSINOPHILS 5.8 % (0-7); HEMATOCRIT 29.9 % (36.0-48.0); HEMOGLOBIN 9.7 g/dL (12-16); IMMATURE GRANULOCYTES 0.4 % (0-5); LYMPHOCYTES 12.1 % (15-50); MCH 32.7 pg (26.0-34.0); MCHC 32.4 g/dL (31.0-37.0); MCV 100.7 fL (80.0-100.0); MONOCYTES 11.9 % (2-11); NEUTROPHILS 68.6 % (40-80); PLATELET COUNT 156 10x3/uL (130-400); RBC 2.97 10x6/uL (4.00-5.40); RDW 17.2 % (11.5-14.5); WBC 5.1 10x3/uL (4.8-10.8)
[2018-09-17 14:31] LABS: INR 1.19 (0.85-1.17); PROTIME 14.6 SECONDS (11.6-15.0)
[2018-09-17 14:32] LABS: APTT 32.7 SECONDS (22.8-39.4)
[2018-09-17 14:34] LABS: ALBUMIN 3.4 g/dL (3.4-5.0); ALKALINE PHOSPHATASE 81 U/L (46-116); ALT (SGPT) 16 U/L (10-68); BILIRUBIN - TOTAL 0.29 mg/dL (0.2-1.3); CALC OSMOLALITY 286 mosm/kg (275-300); CALCIUM 8.1 mg/dL (8.5-10.1); CARBON DIOXIDE 24.9 mmol/L (21.0-32.0); CHLORIDE - SERUM 103 mmol/L (98-107); CREATININE - SERUM 2.3 mg/dL (0.6-1.3); GLUCOSE 145 mg/dL (74-106); POTASSIUM - SERUM 4.6 mmol/L (3.5-5.1); PROTEIN - SERUM 7.1 g/dL (6.4-8.2); SODIUM 138 mmol/L (136-145); UREA NITROGEN 34 mg/dL (7-18); eGFR NON AFRICAN AMERICAN 22 mL/min (90-120)
[2018-09-17 14:38] LABS: AMYLASE - SERUM 39 U/L (25-115); LIPASE 134 U/L (73-393); TROPONIN-I < 0.017 ng/mL (0.000-0.060)
[2018-09-17 15:32] LABS: APPEARANCE HAZY (CLEAR); BILIRUBIN NEGATIVE (NEGATIVE); COLOR YELLOW (YELLOW); EPITHELIAL CELLS 0-5 /hpf (0-5); GLUCOSE NEGATIVE (NEGATIVE); KETONE NEGATIVE (NEGATIVE); NITRITE NEGATIVE (NEGATIVE); PROTEIN 3+ mg/dL (NEGATIVE); RED CELLS - URINE OCC /hpf (0-5); SPECIFIC GRAVITY 1.015 (1.005-1.020); UROBILINOGEN NORMAL (NORMAL)
[2018-09-17] MEDS ORDERED: OMNICEF300 MG PO (17:01)
[2018-09-17 18:08] VITALS: BP 178/68
== END 2018-09-17 18:09 | disposition home or self-care (01) ==
LOC: D.ER 13:21
PROVIDERS: Family Medicine
DX: N39.0 Urinary tract infection, site not specified (principal); I10 Essential (primary) hypertension; K21.9 Gastro-esophageal reflux disease without esophagitis

== ENCOUNTER 2018-09-19 11:58 | Emergency (ER) | payer MEDICARE ==
[~2018-09-19] VITALS: Ht 152.4 cm; Wt 80.9 kg
[~2018-09-19 11:58] MED LIST changes: +OMNICEF300 MG PO
[2018-09-19 12:00] VITALS: Ht 152.4 cm; Wt 80.9 kg
[2018-09-19 14:10] VITALS: BP 167/48
== END 2018-09-19 14:10 | disposition home or self-care (01) ==
LOC: D.ER 11:58
DX: S09.90XA Unspecified injury of head, initial encounter (principal); W05.0XXA Fall from non-moving wheelchair, initial encounter; Y93.89 Activity, other specified; Y92.129 Unspecified place in nursing home as the place of occurrence of the external cause; S19.9XXA Unspecified injury of neck, initial encounter

== ENCOUNTER 2018-10-05 17:20 | Emergency (ER) | payer MEDICARE ==
[~2018-10-05] VITALS: Ht 152.4 cm; Wt 80.9 kg
[2018-10-05 17:26] VITALS: Ht 152.4 cm; Wt 80.9 kg
[2018-10-05 20:04] VITALS: BP 180/64
== END 2018-10-05 20:05 ==
LOC: D.ER 17:20
DX: S09.90XA Unspecified injury of head, initial encounter (principal); W18.09XA Striking against other object with subsequent fall, initial encounter; Y93.E1 Activity, personal bathing and showering; Y92.012 Bathroom of single-family (private) house as the place of occurrence of the external cause

== ENCOUNTER 2018-10-21 09:32 | Outpatient (CLI) | payer MEDICARE ==
[~2018-10-21] VITALS: Ht 152.4 cm; Wt 90.0 kg
[2018-10-21 10:59] VITALS: BP 112/55; Ht 152.4 cm; Wt 90.0 kg
--- NOTE | 2018-10-21 13:45 | NUR ---
DR WILCOX PAGED REGARDING PATIENT'S BLOOD PRESSURE ELEVATION AND WHEEZES. PATIENT REPORTS THAT WITH ACTIVITY SHE ALWAYS GETS WHEEZY AND JUST GOT UP TO BATHROOM WITH HELP OF NURSING. 8173 DR WILCOX RETURNS CALL REGARDING PATIENT'S CONDITION, ORDER FOR BUMEX IV RECEIVED
== END 2018-10-21 16:50 | disposition home or self-care (01) ==
LOC: D.OPS 09:32
PROVIDERS: ATTEND Internal Medicine Hematology & Oncology
DX: D64.9 Anemia, unspecified (principal)

== ENCOUNTER 2018-11-15 22:00 | Emergency (ER) | payer MEDICARE ==
[~2018-11-15] VITALS: Ht 152.4 cm; Wt 88.6 kg
[2018-11-15 22:11] VITALS: Ht 152.4 cm; Wt 88.6 kg
[2018-11-15 23:35] LABS: BASOPHILS 0.9 % (0-2); EOSINOPHILS 7.5 % (0-7); HEMATOCRIT 26.2 % (36.0-48.0); HEMOGLOBIN 8.6 g/dL (12-16); IMMATURE GRANULOCYTES 0.4 % (0-5); LYMPHOCYTES 13.9 % (15-50); MCH 31.9 pg (26.0-34.0); MCHC 32.8 g/dL (31.0-37.0); MEAN PLATELET VOLUME 10.4 fL (7.4-10.4); MONOCYTES 11.8 % (2-11); NEUTROPHILS 65.5 % (40-80); PLATELET COUNT 146 10x3/uL (130-400); RDW 17.1 % (11.5-14.5); WBC 4.7 10x3/uL (4.8-10.8)
[2018-11-15 23:50] LABS: APTT 33.2 SECONDS (22.8-39.4); INR 1.16 (0.85-1.17); PROTIME 14.3 SECONDS (11.6-15.0)
[2018-11-15 23:51] LABS: ALBUMIN 3.1 g/dL (3.4-5.0); ANION GAP 12.7 mmol/L (8-16); BILIRUBIN - TOTAL 0.3 mg/dL (0.2-1.3); CALCIUM 8.2 mg/dL (8.5-10.1); CARBON DIOXIDE 25.6 mmol/L (21.0-32.0); CREATININE - SERUM 2.2 mg/dL (0.6-1.3); POTASSIUM - SERUM 4.3 mmol/L (3.5-5.1); PROTEIN - SERUM 6.8 g/dL (6.4-8.2)
[2018-11-16 02:16] VITALS: BP 151/63
== END 2018-11-16 03:25 | disposition home or self-care (01) ==
LOC: D.ER 22:00
PROVIDERS: Family Medicine
DX: N93.9 Abnormal uterine and vaginal bleeding, unspecified (principal); D64.9 Anemia, unspecified; I25.10 Atherosclerotic heart disease of native coronary artery without angina pectoris; I12.9 Hypertensive chronic kidney disease with stage 1 through stage 4 chronic kidney disease, or unspecified chronic kidney disease; N18.9 Chronic kidney disease, unspecified; E11.9 Type 2 diabetes mellitus without complications; Z95.2 Presence of prosthetic heart valve

== ENCOUNTER 2018-12-11 21:16 | Inpatient (IN) | payer MEDICARE ==
[~2018-12-11] VITALS: Ht 152.4 cm; Wt 81.6 kg
--- NOTE | 2018-12-11 22:00 | NUR ---
PT LEFT ED VIA STRETCHER FOR CT.
--- NOTE | 2018-12-11 22:20 | NUR ---
RN PLACED IV IN PT L HAND IN CT.
[2018-12-11 22:23] LABS: BASOPHILS 0.5 % (0-2); EOSINOPHILS 3.4 % (0-7); HEMATOCRIT 28.5 % (36.0-48.0); HEMOGLOBIN 9.3 g/dL (12-16); IMMATURE GRANULOCYTES 0.4 % (0-5); LYMPHOCYTES 6.2 % (15-50); MCH 32.1 pg (26.0-34.0); MCHC 32.6 g/dL (31.0-37.0); MCV 98.3 fL (80.0-100.0); MEAN PLATELET VOLUME 11.6 fL (7.4-10.4); MONOCYTES 8.9 % (2-11); NEUTROPHILS 80.6 % (40-80); WBC 7.3 10x3/uL (4.8-10.8)
[2018-12-11 22:24] LABS: PLATELET COUNT 222 10x3/uL (130-400)
[2018-12-11 22:37] LABS: ALBUMIN 2.8 g/dL (3.4-5.0); ANION GAP 15.7 mmol/L (8-16); BILIRUBIN - TOTAL 0.41 mg/dL (0.2-1.3); CALCIUM 8.7 mg/dL (8.5-10.1); CARBON DIOXIDE 24.3 mmol/L (21.0-32.0); CREATININE - SERUM 2.4 mg/dL (0.6-1.3); PROTEIN - SERUM 7.2 g/dL (6.4-8.2)
[2018-12-11 22:41] LABS: INR 1.34 (0.85-1.17)
[2018-12-11 22:42] LABS: APTT 36.8 SECONDS (22.8-39.4)
--- NOTE | 2018-12-11 23:45 | NUR ---
RN AND EDP DOWNEN AT PT BEDSIDE. EDP APPLIED 8 JUNE TO PT R POSTERIOR HEAD. PT TOLERATED WELL.
[2018-12-12] VITALS: BP 178/61
--- NOTE | 2018-12-12 00:50 | NUR ---
PT RESTING ON BED. PT SCALP CLEANSED WITH PEROXIDE AND WATER TO REMOVE BLOOD FROM PT HAIR.
--- NOTE | 2018-12-12 01:30 | NUR ---
LINEN CHANGE PERFORMED ON PT. PT REPOSITIONED IN BED.
--- NOTE | 2018-12-12 02:30 | NUR ---
PT ARRIVED TO FLOOR VIA STRETCHER, TRANSFERED TO BED, TOLERATED WELL. PT COMPLAINS OF PAIN TO BACK OF HEAD, NECK AND BACK. IV LEFT HAND, NO REDNESS OR SWELLING AT INSERTION SITE. O2 2L/NC. PT HAS LACERATION TO RIGHT POSTERIOR HEAD WITH 8 JUNE. ABRASIONS TO RIGHT KNEE, SHOULDER, AND BACK OF THIGH. GENERALIZED AND PERIORBITAL BRUISING. PT HAS NON BLANCHABLE RED SPOT TO BUTTOCK. AROUND PT ANUS IS RED WITH BRUISING AND HEMORRHOIDS PRESENT. PT REQUESTED AND PUT ON BED OSWALD. VOIDED SMALL AMOUNT. WHEN WIPING BLOOD WAS PRESENT. PT CONFUSED TO SITUATION BUT PLEASANT. PROVIDED WATER. PRIMARY NURSE AT BEDSIDE. BESSIE ON. CL IN REACH, WILL CTM
[2018-12-12 02:33] VITALS: BMI 35.2
[2018-12-12] MEDS ORDERED: VITAMIN D3400 UNI1 PO (03:13)
[2018-12-12] MEDS ORDERED: HUMULIN R100 U/ML SC (03:19)
[2018-12-12] MEDS ORDERED: METOPROLOL TART25 MG PO (03:24)
[2018-12-12] MEDS ORDERED: COZAAR50 MG PO (03:27)
[2018-12-12] MEDS ORDERED: MIRALAX17 GM PO (03:29)
[2018-12-12] MEDS ORDERED: MYSOLINE250 MG PO (03:32)
[2018-12-12] MEDS ORDERED: NORVASC10 MG PO (03:34)
[2018-12-12] MEDS ORDERED: PROMOD LIQUID P30 M1 PO (03:38)
[2018-12-12] MEDS ORDERED: RANEXA500 MG PO (03:39)
[2018-12-12] MEDS ORDERED: BUPROPION XL300 MG PO (03:41)
[2018-12-12 04:00] VITALS: BP 176/62
[2018-12-12 05:46] LABS: BASOPHILS 0.5 % (0-2); EOSINOPHILS 4.3 % (0-7); HEMATOCRIT 26.5 % (36.0-48.0); HEMOGLOBIN 8.7 g/dL (12-16); IMMATURE GRANULOCYTES 0.7 % (0-5); LYMPHOCYTES 8.7 % (15-50); MCH 32.3 pg (26.0-34.0); MCHC 32.8 g/dL (31.0-37.0); MCV 98.5 fL (80.0-100.0); MEAN PLATELET VOLUME 11.9 fL (7.4-10.4); NEUTROPHILS 77.8 % (40-80); PLATELET COUNT 201 10x3/uL (130-400); RBC 2.69 10x6/uL (4.00-5.40); RDW 16.2 % (11.5-14.5)
[2018-12-12 05:49] LABS: ANION GAP 14.5 mmol/L (8-16); CALCIUM 8.6 mg/dL (8.5-10.1); CARBON DIOXIDE 22.5 mmol/L (21.0-32.0); CREATININE - SERUM 2.3 mg/dL (0.6-1.3)
--- NOTE | 2018-12-12 07:05 | NUR ---
PATIENT RECIEVED FROM PREVIOUS SHIFT RESTING IN BED, DROWSEY BUT AWAKENS TO VOICE. RESPIRATIONS REGULAR AND NONLABORED. CL IN EASY REACH
[2018-12-12 09:02] VITALS: BP 150/80
[2018-12-12 10:07] VITALS: Ht 152.4 cm; Wt 81.6 kg
[2018-12-12 13:57] VITALS: BP 163/83
--- NOTE | 2018-12-12 14:03 | NUR ---
TRIED TO WEAN TO ROOM AIR BUT SPO2 DROPPED TO 87%, PLACE BACK ON 2L/M
--- NOTE | 2018-12-12 15:25 | NUR ---
16 F HAMLIN CATH PLACED WITH NO DIFFICULTIES.
[2018-12-12 17:52] VITALS: BP 171/78
[2018-12-12 20:41] VITALS: BP 147/57
[2018-12-13 00:38] VITALS: BP 172/65
--- NOTE | 2018-12-13 02:57 | NUR ---
resting in bed resprations even and unlabored call light in reach. no needs noted or stated scd's in place and on .
[2018-12-13 05:22] VITALS: BP 154/55
[2018-12-13 06:43] LABS: ALBUMIN 2.8 g/dL (3.4-5.0); ANION GAP 16.6 mmol/L (8-16); BILIRUBIN - TOTAL 0.35 mg/dL (0.2-1.3); CALCIUM 8.6 mg/dL (8.5-10.1); CARBON DIOXIDE 23.7 mmol/L (21.0-32.0); CREATININE - SERUM 2.8 mg/dL (0.6-1.3); POTASSIUM - SERUM 4.3 mmol/L (3.5-5.1); PROTEIN - SERUM 7.1 g/dL (6.4-8.2); VANCOMYCIN - RANDOM 9.7 ug/mL (10.0-20.0)
[2018-12-13 06:45] LABS: LYMPHOCYTES 9.3 % (15-50); MCH 38.9 pg (26.0-34.0); MCHC 38.5 g/dL (31.0-37.0); MEAN PLATELET VOLUME 11.6 fL (7.4-10.4); NEUTROPHILS 81.8 % (40-80); RDW 16.1 % (11.5-14.5)
[2018-12-13 07:07] LABS: MCV 100.9 fL (80.0-100.0)
[2018-12-13 09:28] VITALS: BP 156/65
[2018-12-13 13:43] VITALS: BP 168/85
[2018-12-13] MEDS ORDERED: VANCOMYCIN 1 GM/1 G1 IV (13:50)
[2018-12-13] MEDS ORDERED: ZOSYN 2.25 GM2.25 G1 IV (13:50)
[2018-12-13 17:29] VITALS: BP 144/54
[2018-12-13 21:00] VITALS: BP 102/58
[2018-12-14 00:43] VITALS: BP 129/56
[2018-12-14 05:33] VITALS: BP 135/58
[2018-12-14 06:11] LABS: ANION GAP 17.1 mmol/L (8-16); CARBON DIOXIDE 21.1 mmol/L (21.0-32.0); CREATININE - SERUM 3.2 mg/dL (0.6-1.3); POTASSIUM - SERUM 4.2 mmol/L (3.5-5.1); VANCOMYCIN - RANDOM 16.6 ug/mL (10.0-20.0)
[2018-12-14 07:08] LABS: BASOPHILS 0.7 % (0-2); EOSINOPHILS 9.2 % (0-7); IMMATURE GRANULOCYTES 0.5 % (0-5); LYMPHOCYTES 8.3 % (15-50); MCH 32.7 pg (26.0-34.0); MCHC 32.9 g/dL (31.0-37.0); MCV 99.2 fL (80.0-100.0); MEAN PLATELET VOLUME 11.3 fL (7.4-10.4); MONOCYTES 10.5 % (2-11); NEUTROPHILS 70.8 % (40-80); PLATELET COUNT 183 10x3/uL (130-400); RDW 15.8 % (11.5-14.5)
[2018-12-14 07:25] LABS: HEMATOCRIT 24.3 % (36.0-48.0); RBC 2.45 10x6/uL (4.00-5.40); WBC 6.1 10x3/uL (4.8-10.8)
--- NOTE | 2018-12-14 07:58 | NUR ---
PT RESTING IN BED. CHEST RISING AND FALLING. SNORING NOTED. NO S/S OF ACUTE DISTRESS. CL IN PLACE.
--- NOTE | 2018-12-14 08:56 | NUR ---
SPOKE WITH KARENA LAUGHLIN APN ABOUT CR+ OF 3.2 HE STATED TO HOLD DC TILL HE CALLS BACK HE IS GOING TO SPEAK TO DR RENNER
--- NOTE | 2018-12-14 09:41 | NUR ---
NUTRITION F//U CHART REVIEWED, PT SLEEPING AT THIS TIME. NO INTAKE BREAKFAST. SPEECH THERAPY NOTE REVIEWED. WILL CONTINUE TO MONITOR PT PROGRESS. ASSIST WITH NUTRITION SUPPORT IF NEEDED. RD FOLLOWING
[2018-12-14 10:35] VITALS: BP 165/63
[2018-12-14 10:36] LABS: HEMATOCRIT 30.8 % (36.0-48.0); HEMOGLOBIN 9.1 g/dL (12-16); PLATELET COUNT 241 10x3/uL (130-400); WBC 7.6 10x3/uL (4.8-10.8)
[2018-12-14 10:47] LABS: RBC 2.83 10x6/uL (4.00-5.40)
[2018-12-14 13:45] VITALS: BP 172/63
--- NOTE | 2018-12-14 19:21 | NUR ---
ASSISTED RN DOCUMENTATION SPECIALIST WITH TURNING PT TO L SIDE AND FULL BED CHANGE. LOOSE BROWN BM NOTED. NO S/S OF ACUTE DISTRESS. CL IN PLACE.
--- NOTE | 2018-12-14 20:00 | NUR ---
PT LYING IN BED RESTING WITHOUT DISTRESS. ORIENTED TO SELF ONLY. IV LEFT HAND INFUSING 1/2NS @ 100. HAMLIN IN PLACE. PT REQUESTED AND PLACED ON BED OSWALD. PT HAD LARGE LIQUID BM. PROVIDED JS CARE. DENIES OTHER NEEDS. CL IN REACH, WILL CTM
[2018-12-14 21:23] VITALS: BP 167/59
[2018-12-15 01:57] VITALS: BP 150/52
[2018-12-15 04:44] LABS: BASOPHILS 0.8 % (0-2); HEMATOCRIT 26.4 % (36.0-48.0); HEMOGLOBIN 8.6 g/dL (12-16); IMMATURE GRANULOCYTES 0.6 % (0-5); LYMPHOCYTES 9.1 % (15-50); MCH 32.2 pg (26.0-34.0); MCHC 32.6 g/dL (31.0-37.0); MCV 98.9 fL (80.0-100.0); MEAN PLATELET VOLUME 11.6 fL (7.4-10.4); MONOCYTES 8.8 % (2-11); NEUTROPHILS 71.7 % (40-80); PLATELET COUNT 201 10x3/uL (130-400); RBC 2.67 10x6/uL (4.00-5.40); RDW 15.7 % (11.5-14.5); WBC 6.2 10x3/uL (4.8-10.8)
[2018-12-15 05:09] LABS: ANION GAP 16.8 mmol/L (8-16); CALCIUM 8.2 mg/dL (8.5-10.1); CARBON DIOXIDE 20.2 mmol/L (21.0-32.0); CREATININE - SERUM 3.3 mg/dL (0.6-1.3); VANCOMYCIN - RANDOM 14.3 ug/mL (10.0-20.0)
[2018-12-15 05:41] VITALS: BP 148/76
--- NOTE | 2018-12-15 07:31 | NUR ---
PT LYING IN BED, ASSISTED PT ON BEDPAN. NO OTHER NEEDS VOICED, NO S/S OF DISTRESS. PLACED CL ON PT AND ADVISED TO CALL [facility] FINISHED. ASSUME PT CARE
[2018-12-15 09:42] VITALS: BP 189/77
[2018-12-15 12:52] VITALS: BP 111/78
--- NOTE | 2018-12-15 13:05 | NUR ---
PT LYING IN BED WITH HOB AT 45. PT STATES SHE IS NOT HUNGRY AND DID NOT EAT MUCH OF BREAKFAST, DID NOT WANT LUNCH. PT STATED SHE LIKE ENSURE, ORDERED ENSURE FOR PT TO HAVE AT EACH MEAL
--- NOTE | 2018-12-15 15:23 | NUR ---
I have reviewed this patient and I concur with the Shift Assessment completed by the Licensed Practical Nurse today this shift.
[2018-12-15 17:06] VITALS: BP 126/69
--- NOTE | 2018-12-15 19:15 | NUR ---
PT LYING IN BED RESTING WITH EYES CLOSED, NO SIGNS OF DISTRESS. O2 2L/NC. IV LEFT HAND INFUSING 1/2NS @ 100. SCDS ON. HAMLIN IN PLACE. BED LOWEST POSITION, SRX2, CL IN REACH. BESSIE ON. WILL CTM
[2018-12-15 20:00] VITALS: BP 153/69
--- NOTE | 2018-12-15 21:30 | NUR ---
PT CALLING OUT HELP, REQUESTED TO BE PUT ON BED OSWALD. PLACED PT ON AND OFF BED OSWALD FOR BM. PT HAVING DIARRHEA. JS AND HAMLIN CARE PROVIDED. PT TOOK HS MEDS WITHOUT DIFFICULTY. WITHOUT OTHER NEEDS. CL IN REACH, BESSIE ON. WILL CTM
[2018-12-16] VITALS: BP 162/78
[2018-12-16 04:00] VITALS: BP 160/70
[2018-12-16 07:52] LABS: ANION GAP 14.7 mmol/L (8-16); CALCIUM 8.2 mg/dL (8.5-10.1); CARBON DIOXIDE 20.4 mmol/L (21.0-32.0); CREATININE - SERUM 2.7 mg/dL (0.6-1.3); POTASSIUM - SERUM 4.1 mmol/L (3.5-5.1); VANCOMYCIN - RANDOM 19.1 ug/mL (10.0-20.0)
--- NOTE | 2018-12-16 07:56 | NUR ---
PT CRYING THIS MORNING AND STATES SHE WANTS TO GO HOME, ADVISED PT WE HAVE TO MAKE SURE HER LABS ARE GOOD AND THAT SHE IS SAFE TO GO HOME DUE TO ALL HER FALLS. PT STARTED TO CRY AGAIN AND STATED SHE JUST WANTS TO GO HOME. CL IN REACH BED IN LOW POSITION. CONTINUE WITH PLAN OF CARE
[2018-12-16 08:41] VITALS: BP 183/71
--- NOTE | 2018-12-16 09:11 | MORECARE ---
CASE MANAGEMENT DISCHARGE SUMMARY PATIENT: ADRIANA MARCELINO UNIT: [id number] ADM DATE: 12/12/18 AGE: 78 : 39 SEX: F ROOM/BED: D.2207 AUTHOR: SHANELLE DONIS PHYSICIAN: REFERRING PHYSICIAN: JACQUIE CARBAJAL MD DATE OF SERVICE: 12/16/18 Discharge Plan Patient Name: ADRIANA MARCELINO Facility: [facility]:[place] : 1940 Planned Disposition: Correction Facility Anticipated Discharge Date: Discharge Date: Expected LOS: Initial Reviewer: [email or web address] Initial Review Date: 12/12/2018 Generated: 12/16/18 10:11 am Comments DCP- Discharge Planning Updated by [email or web address]: Daphne Flores on 12/16/18 8:[address] Patient Name: ADRIANA MARCELINO Admission Status: ER Accout number: [id number] Admission Date: 12-12-2018 : 1940 Admission Diagnosis:VOMITING, UNSPECIFIED Attending: JACQUIE CARBAJAL Current LOS: 4 Anticipated DC Date: Planned Disposition: Correction Facility Primary Insurance: MEDICARE A & B Discharge Planning Comments: CM met with patient to assess discharge planning needs. Patient came from [facility]. Her is in chcf care there and she will transition to chcf care. IMM explained to her but I am unsure she understood. She will be going back to [place] in a skilled bed. CM to follow and assist with dc planning Centrifugal Spinner: Daphne Flores DCPIA - Discharge Planning Initial Assessment Updated by [email or web address]: Daphne Flores on 12/16/18 9:05 am * Is the patient Alert and Oriented? Yes * PCP [facility] * [facility] * Preadmission Environment [facility] * Facility Name [facility] * Additional services required to return to the preadmission environment? No * Can the patient safely return to the preadmission environment? Yes * Has this patient been hospitalized within the prior 30 days at any hospital? No Patient Name: ADRIANA MARCELINO Page [phone] at 0911 All edits/amendments must be made on the electronic document DICTATION DATE: 12/16/18910 PRINCIPAL QUALITY ENGINEER: ERNA 12/16/18910 RPT#: [id number] DC DATE: STATUS: ADM IN [facility] [address] [place] [address] END OF REPORT
--- NOTE | 2018-12-16 09:25 | MORECARE ---
CASE MANAGEMENT DISCHARGE SUMMARY PATIENT: ADRIANA MARCELINO UNIT: [id number] ADM DATE: 12/12/18 AGE: 78 : 39 SEX: F ROOM/BED: D.2207 AUTHOR: SHANELLE DONIS PHYSICIAN: REFERRING PHYSICIAN: JACQUIE CARBAJAL MD DATE OF SERVICE: 12/16/18 Discharge Plan Patient Name: ADRIANA MARCELINO Facility: [facility]:[place] : 1940 Planned Disposition: [facility] Facility Anticipated Discharge Date: Discharge Date: Expected LOS: Initial Reviewer: [email or web address] Initial Review Date: 12/12/2018 Generated: 12/16/18 10:25 am DCP- Discharge Planning Updated by [email or web address]: Daphne Flores on 12/16/18 8:[address] Patient Name: ADRIANA MARCELINO Admission Status: ER Accout number: [id number] Admission Date: 12-12-2018 : 1940 Admission Diagnosis:VOMITING, UNSPECIFIED Attending: JACQUIE CARBAJAL Current LOS: 4 Anticipated DC Date: Planned Disposition: [facility] Facility Primary Insurance: MEDICARE A & B Discharge Planning Comments: CM met with patient to assess discharge planning needs. Patient came from [facility] where she will be discharging back to residential. Her is in joint terminal attack controller care there and she will transition to joint terminal attack controller care. IMM explained to her but I am unsure she understood. She will be going back to [place] in a skilled bed. CM to follow and assist with dc planning Wafer Fabrication Operator: Daphne Flores DCPIA - Discharge Planning Initial Assessment Updated by [email or web address]: Daphne Flores on 12/16/18 9:05 am * Is the patient Alert and Oriented? Yes * PCP [facility] * [facility] * Preadmission Environment [facility] Facility * Facility Name [facility] * Additional services required to return to the preadmission environment? No * Can the patient safely return to the preadmission environment? Yes * Has this patient been hospitalized within the prior 30 days at any hospital? No External Providers External Provider: [facility] Next Contact Date: Service Request Date: Service Type: Resolution: Reviewer: Comments: Coverage Notice Reviewer: [email or web address] Larry Daphne Flores Notice Issued Date-Time: 12/16/2018 8:55 Notice Type: IM Discharge Notice Notice Delivered To: Patient Relationship to Patient: Fur Finisher Tailor Name: kamaljit polo Delivery Method: HAND - Hand Delivered Leigha Days: Prior Verbal Notification: Recipient Understood Notice: Yes Recipient Signature: Yes Med Rec Note Co-signed by Attending: Coverage Notice Comment: also spoke on the phone with kamaljit Rios DP export: 12/16/18 8:11 a Patient Name: ADRIANA MARCELINO Page [phone] at 0925 All edits/amendments must be made on the electronic document DICTATION DATE: 12/16/18924 FOOD AND BEVERAGE ATTENDANT: ERNA 12/16/18924 RPT#: [id number] DC DATE: STATUS: ADM IN [facility] [address] [place] [address] END OF REPORT
--- NOTE | 2018-12-16 11:28 | CN ---
PATIENT NAME:ADRIANA MARCELINO MEDICAL RECORD: [id number] : 38 LOCATION:D[id number] ADMIT DATE: 12/12/18 ACCOUNT: [id number] CONSULTING PHYSICIAN: VAIBHAV WEAVER MD REFERRING PHYSICIAN: JACQUIE CARBAJAL MD DATE OF CONSULTATION: 12/14/2018 DIAGNOSES: 1. Sinus bradycardia. 2. Abnormal ECG, first-degree AV block. 3. Hypertension. 4. Chronic stable angina. 5. Coronary artery disease. 6. Previous multivessel percutaneous transluminal coronary angioplasty stent. 7. Pneumonia. 8. Hyperlipidemia. 9. Paroxysmal atrial fibrillation, controlled in sinus rhythm, on Cordarone. HISTORY OF PRESENT ILLNESS: Mrs. Marcelino presents with a pneumonia. There was a question of junctional bradycardia. She has sinus bradycardia on telemetry. She has had no junctional beats. She does have a first degree AV block. She has a history of coronary artery disease. She is not having any acute ischemic problems. At this point, she has a history of atrial fibrillation for which she is on Cordarone 200 mg a day. She has hyperlipidemia, on pravastatin. She has hypertension, on losartan and Norvasc. PHYSICAL EXAMINATION: GENERAL APPEARANCE: Well-nourished, well-developed, appears stated age. Level of distress, comfortable. PSYCHIATRIC: Mental status, alert, normal affect. Orientation, oriented to time, place and person. EYES: Lids and conjunctiva, noninjected. No discharge, no pallor. ENT: Lips, teeth, gums, normal dentition. Oropharynx, no cyanosis, no pallor. NECK: Carotid arteries, bilateral normal upstroke, no bruits, no thrills. JUGULAR VEINS: No jugular venous pressure or distention. CERVICAL LYMPH NODES: Nontender, nonenlarged. THYROID: Not enlarged. Nontender. No nodules. LUNGS: Respiratory effort, unlabored. CHEST: Normal curvature. No thoracic deformity. No chest wall tenderness. Percussion, resonant. Auscultation, clear. No wheezes, no rales, no rhonchi. CARDIOVASCULAR: Precordial exam, nondisplaced. No heaves or pericardial thrills. Rate and rhythm, regular. Heart sounds, normal S1, normal S2. No S3, no gallop, no rub. Systolic murmur, not heard. Diastolic murmur, not heard. EXTREMITIES: No cyanosis, no edema. Peripheral pulses, full and equal in all extremities, except as noted. No bruits appreciated. ABDOMEN: Soft, nondistended. Normal aorta. No bruit. Nontender. No masses. Liver, nontender, no hepatomegaly. Spleen, nontender, no splenomegaly. MUSCULOSKELETAL: No joint tenderness. No joint swelling. No erythema. NEUROLOGICAL: Normal gait, normal strength, normal tone. SKIN: Warm and dry. OVERALL IMPRESSION: Sinus bradycardia with first-degree AV block, no junctional arrhythmias. No atrial fibrillation, no anginal symptomatology, stable from a cardiac standpoint at this time, no other cardiac workup or treatment is necessary. CONSULT REPORT [id number] ADRIANA MARCELINO TRANSINT:[id number] Voice Confirmation ID: [id number] DOCUMENT ID: [id number] VAIBHAV WEAVER MD at 1128 CC: [id number] DICTATION DATE: 12/14/18 1601 EMPLOYEE BENEFITS DIRECTOR: 12/14/18 1630 ADM IN [id number] [place] [address]
== END 2018-12-16 12:42 | DRG 178 ==
LOC: D.ER 21:16 → D.MS 12-12 01:44
PROVIDERS: Family Medicine; Legal Medicine; ADMIT Family Medicine; ATTEND Family Medicine
PROC: 0HQ0XZZ Repair Scalp Skin, External Approach (ICD-10-PCS; principal; 2018-12-12)
DX: J69.0 Pneumonitis due to inhalation of food and vomit (principal); N18.4 Chronic kidney disease, stage 4 (severe); N17.9 Acute kidney failure, unspecified; S01.01XA Laceration without foreign body of scalp, initial encounter; W18.11XA Fall from or off toilet without subsequent striking against object, initial encounter; D64.9 Anemia, unspecified; I25.10 Atherosclerotic heart disease of native coronary artery without angina pectoris; G30.9 Alzheimer's disease, unspecified; F02.80 Dementia in other diseases classified elsewhere, unspecified severity, without behavioral disturbance, psychotic disturbance, mood disturbance, and anxiety; E11.22 Type 2 diabetes mellitus with diabetic chronic kidney disease; I12.9 Hypertensive chronic kidney disease with stage 1 through stage 4 chronic kidney disease, or unspecified chronic kidney disease; I48.91 Unspecified atrial fibrillation; N14.1 Nephropathy induced by other drugs, medicaments and biological substances; T50.8X5A Adverse effect of diagnostic agents, initial encounter

== ENCOUNTER 2019-02-13 15:34 | Inpatient (IN) | payer MEDICARE ==
[~2019-02-13 15:34] MED LIST changes: +BUPROPION XL300 MG PO; +COZAAR50 MG PO; +HUMULIN R100 U/ML SC; +METOPROLOL TART25 MG PO; +MIRALAX17 GM PO; +PROMOD LIQUID P30 M1 PO; +VANCOMYCIN 1 GM/1 G1 IV; +VITAMIN D3400 UNI1 PO; +ZOSYN 2.25 GM2.25 G1 IV
--- NOTE | 2019-02-13 18:00 | NUR ---
PATIENT ARRIVED TO [facility]UST[facility] VIA WHEELCHAIR PER VAN FROM [facility] FOR ROOM 1124. DX: ALTERED MENTAL STATUS WITH HISTORY OF DEMENTIA. SHE IS TOTAL CARE AND NEEDS A HOLLIER LIFT TO ASSIST. HER POA, TOLD TIERNEY MCGEE RN IS A DNR CODE STATUS. HER CODE WORD IS SASSY.
[2019-02-13] MEDS ORDERED: ATIVAN0.5 MG PO (18:58)
[2019-02-13] MEDS ORDERED: BUSPAR 15 MG TA15 MG PO (18:59)
[2019-02-13] MEDS ORDERED: CITRACAL + D E1 EACH PO (19:02)
[2019-02-13] MEDS ORDERED: CO Q1060 MG PO (19:05)
[2019-02-13] MEDS ORDERED: COREG12.5 MG PO (19:08)
[2019-02-13] MEDS ORDERED: VITAMIN B-121000 MCG PO (19:09)
[2019-02-13] MEDS ORDERED: FERROUS SULFAT325 MG PO (19:14)
[2019-02-13] MEDS ORDERED: FOLIC ACID1 MG PO (19:26)
[2019-02-13] MEDS ORDERED: GLUCOTROL XL 5 M5 MG PO (19:30)
[2019-02-13] MEDS ORDERED: LEXAPRO20 MG PO (19:32)
[2019-02-13] MEDS ORDERED: MELATONIN 3 MG1 TAB PO (19:33)
[2019-02-13] MEDS ORDERED: MYSOLINE250 MG PO (19:35)
[2019-02-13] MEDS ORDERED: NITROSTAT0.4 MG SL (19:37)
[2019-02-13] MEDS ORDERED: NORVASC5 MG PO (19:38)
[2019-02-13] MEDS ORDERED: NYSTATIN15 GM TOPICAL (19:43)
[2019-02-13] MEDS ORDERED: RANEXA1000 MG PO (19:47)
[2019-02-13] MEDS ORDERED: THERMOTABS 1 GM1 GM PO (19:49)
[2019-02-13] MEDS ORDERED: ACETAMINOPHEN500 M1 PO (20:00)
[2019-02-13] MEDS ORDERED: VOLTAREN100 GM TOPICAL (20:01)
[2019-02-13] MEDS ORDERED: ZYPREXA5 MG PO (20:01)
--- NOTE | 2019-02-13 21:02 | NUR ---
RECEIVED IN DAYROOM. SITTING IN A RECLINER. YELLING OUT CONTINUOUSLY. CALM AND COOPERATIVE WITH CARE AND ASSESSMENT. REDIRECT AND REORIENT NEEDED. CONTINUES TO YELL OUT. CONTINUE PLAN OF CARE
--- NOTE | 2019-02-13 21:37 | NUR ---
PATIENT YELLING OUT. INCREASING ANXIETY. PRN ATIVAN 0.5 MG IM GIVEN FOR INCREASING ANXIETY.
[2019-02-13 22:23] VITALS: BP 148/73
[2019-02-13] MEDS ORDERED: DONEPEZIL HCL10 MG PO (23:55)
[2019-02-13] MEDS ORDERED: LOW DOSE ASPIRI81 M1 PO (23:57)
--- NOTE | 2019-02-14 00:04 | NUR ---
PATIENT IS UNABLE TO RESPOND TO QUESTIONS. UBABLE TO GIVE PATIENT SUICIDE IDANIA SCREENING. WILL ATTEMPT AT A LATER TIME.
--- NOTE | 2019-02-14 00:05 | NUR ---
BRUISING TO FACE UPON ADMIT ASSESSMENT. GENERALIZED BRUISING TO BILATERAL LEGS. RIGHT KNEE ABRASIONS.
--- NOTE | 2019-02-14 00:17 | NUR ---
PT IS SCREAMING CONTINUED HIGH ANXIETY. PRN HALDOL 2MG IM GIVEN FOR ANXIETY. MOUTH CARE PERFORMED. WILL CONTINUE TO MONITOR.
[2019-02-14 00:47] VITALS: BP 148/73
--- NOTE | 2019-02-14 05:26 | NUR ---
PT CONTINUES TO YELL OUT DESPITE ATTEMPTS TO REDIRECT AND REORIENT. WILL CONTINUE TO MONITOR.
--- NOTE | 2019-02-14 07:30 | NUR ---
RECEIVED IN ROOM LYING IN BED. YELLS OUT CONTINUOUSLY. COOPERATIVE WITH CARE AND ASSESSMENT. DIFFICULT TO REDIRECT AND REORIENT, DUE TO LACK OF UNDER- STANDING SITUATION. REPOSITIONED ON LEFT SIDE FOR COMFORT. WILL CONTINUE TO MONITOR.
[2019-02-14 07:35] LABS: ALBUMIN 2.4 g/dL (3.4-5.0); BILIRUBIN - TOTAL 0.7 mg/dL (0.2-1.3); CALCIUM 8.1 mg/dL (8.5-10.1); CARBON DIOXIDE 19.4 mmol/L (21.0-32.0); CHOL - HDL RATIO 2.2 ratio (2.3-4.1); CREATININE - SERUM 2.1 mg/dL (0.6-1.3); LDL-HDL RATIO 0.6 ratio (1.5-3.5); PROTEIN - SERUM 6.5 g/dL (6.4-8.2); THYROID STIMULATING HORMONE 6.79 uIU/mL (0.36-3.74)
[2019-02-14 07:41] LABS: BASOPHILS 0.4 % (0-2); EOSINOPHILS 0.2 % (0-7); HEMATOCRIT 28.4 % (36.0-48.0); HEMOGLOBIN 9.2 g/dL (12-16); IMMATURE GRANULOCYTES 0.3 % (0-5); LYMPHOCYTES 7.7 % (15-50); MCH 34.3 pg (26.0-34.0); MCHC 32.4 g/dL (31.0-37.0); MEAN PLATELET VOLUME 12.3 fL (7.4-10.4); MONOCYTES 5.1 % (2-11); NEUTROPHILS 86.3 % (40-80); PLATELET COUNT 232 10x3/uL (130-400); RBC 2.68 10x6/uL (4.00-5.40); RDW 17.9 % (11.5-14.5); WBC 11.5 10x3/uL (4.8-10.8)
[2019-02-14 07:57] LABS: POTASSIUM - SERUM 4.4 mmol/L (3.5-5.1)
[2019-02-14 08:30] VITALS: BP 167/59
[2019-02-14 12:13] LABS: APPEARANCE CLOUDY (CLEAR); BILIRUBIN NEGATIVE (NEGATIVE); COLOR YELLOW (YELLOW); GLUCOSE NEGATIVE (NEGATIVE); KETONE NEGATIVE (NEGATIVE); NITRITE NEGATIVE (NEGATIVE); PROTEIN 3+ mg/dL (NEGATIVE); SPECIFIC GRAVITY 1.015 (1.005-1.020); UROBILINOGEN NORMAL (NORMAL)
[2019-02-14 12:14] LABS: BACTERIA MANY /hpf (NONE SEEN); EPITHELIAL CELLS RARE /hpf (0-5); RED CELLS - URINE 0-5 /hpf (0-5); WHITE CELLS - URINE >50 /hpf (0-5)
--- NOTE | 2019-02-14 15:00 | NUR ---
VITAL SIGNS TAKEN PRIOR TO APRESOLINE. T=97.6 P=103 R=20 B/P= 141/61 MEDICATION HELD DUE TO RECENTLY APPLYING FENTYL PATCH 12.5MCG.
--- NOTE | 2019-02-14 20:12 | NUR ---
RECEIVED IN BEDROOM. LAYING IN BED BED WITH EYES CLOSED. YELLING OUT CONTINUOUSLY. REPOSITION FOR COMFORT. DOES NOT RESPOND VERBALLY TO QUESTIONS. CONTINUES TO REPOSITION FOR CONFORT. CONTINUES TO REST IN BED. YELLING OUT. CONTINUE PLAN OF CARE
[2019-02-14 20:23] VITALS: BP 124/48
--- NOTE | 2019-02-15 00:58 | NUR ---
PATIENT CONTINUES TO BE UNASSESSABLE WITH THE SUICIDE RISK SCREENING.
[2019-02-15 07:14] LABS: RAPID PLASMA REAGIN Non Reactive (Non Reactive)
--- NOTE | 2019-02-15 07:30 | NUR ---
PATIENT SLEEPING SOUNDLY IN BED, AND QUIET, BUT RESPIRATIONS EVEN AND UNLABORED. WILL ASSESS LATER.
--- NOTE | 2019-02-15 11:00 | NUR ---
PATIENT IMPROVING WITH DRINKING FROM A STRAW TODAY AND ASKING FOR BEDPAN.
--- NOTE | 2019-02-15 15:32 | PSY ---
PATIENT NAME:SAWPNA MARCELINO MEDICAL RECORD: [id number] : 38 LOCATION:[facility] ADMISSION DATE: 02/13/19 ACCOUNT: [id number] PSYCHIATRIC EVALUATION DATE OF EVALUATION: 02/14/19 IDENTIFYING DATA: The patient is 79 years old and she is referred to us by the [facility]. CHIEF COMPLAINT: Aggressive, agitated behavior and suicidal thoughts. HISTORY OF PRESENT ILLNESS: The patient is an 79-year-old woman who has a known history of dementia. She apparently was in the [facility] for rehabilitative services. They contacted us yesterday and said that the patient was making statements about wanting to and was aggressive. The patient currently is yelling and crying uncontrollably. She is only oriented to person and she does not follow or answer questions in any reasonable way. She has numerous medical problems, is total care and is unable to provide much in the way of useful history. PAST MEDICAL AND SURGICAL HISTORY: Includes peripheral neuropathy, essential tremor, hearing and vision impairment, diabetes, hypothyroidism, hypertension, coronary artery disease, myocardial infarction, stent and angioplasty, frequent angina, peripheral edema, acid reflux, rectal bleeding of uncertain etiology, chronic constipation, arthritis, hip replacement, hysterectomy, cholecystitis, cataracts, rotator cuff repair, carpal tunnel repair, right knee arthroplasty, coronary artery bypass surgery, heart valvular repair, appendectomy and a broken left arm. PAST PSYCHIATRIC HISTORY: Significant for an established diagnosis of dementia, although I do not know when, how or where that diagnosis was made. The patient is unable to tell me. There is also history of depression and anxiety, although I do not have details about that and I am unsure if it is something that predated the diagnosis of dementia. FAMILY HISTORY: Significant for cardiovascular disease, diabetes and cancer. ALLERGIES: TOO NUMEROUS TO NAME, BUT INCLUDE NONSTEROIDALS, SULFUR, IRON, ISOSORBIDE, FOLIC ACID, VITAMIN B, VITAMIN C, LASIX, BACTRIM, VERSED, CELEBREX, MULTIVITAMIN WITH IRON. OBVIOUSLY MANY OF THESE ARE PROBABLY MEDICATIONS THAT EITHER SHE DID NOT TOLERATE WELL OR DID NOT DID TOLERATE WELL AT THAT TIME, SINCE IT IS NOT POSSIBLE TO BE ALLERGIC TO VITAMIN B, C, OR FOLIC ACID, AND EVEN THOUGH IRON CAN CAUSE AN UPSET STOMACH YOU CANNOT HAVE AN ALLERGY TO IT. CURRENT MEDICATIONS: Include Zosyn, vancomycin, alprazolam, Plavix, MiraLax, Norvasc, Pravachol, BuSpar, multiple vitamins, CoQ10, Coreg, vitamin B12, folic acid, Feosol, Glucotrol, Lexapro, Mysoline, Nitrostat, Nystatin cream, Ranexa, salt tablets, Aricept, Voltaren, aspirin, Cordarone, Colace, Catapres, vitamin C, Nitro-Dur, vitamin D3, metoprolol, Cozaar, liquid protein, Ativan, Zyprexa, and aspirin. SOCIAL HISTORY: The patient is . Her is in [facility] for reasons that are unclear to me. I do not know if she has children and she is unable to answer these questions. I do not know about her longitudinal history with regards to substance abuse or occupation or level of functioning. MENTAL STATUS EXAMINATION: The patient is lying in bed, breathing through her mouth, moaning, crying out, but cannot respond to me. I know she is hard of hearing. I am told that her right ear hear is better. I shout into her right ear after a couple of times, she mumbles her name Swapna, but will not answer other questions. ASSETS: Stable living environment. LIABILITIES: Limited insight. DIAGNOSTIC IMPRESSION: AXIS I: Major neurocognitive vascular dementia. AXIS II: None. AXIS III: Coronary artery disease, stage IV chronic renal disease, history of closed head injury, acute kidney injury, dysphagia, gastroesophageal reflux disease, hypothyroidism, anemia, aortic valve replacement, rotator cuff arthropathy, hypertension, diabetes, hyperlipidemia, status post coronary artery bypass surgery, chronic constipation, paroxysmal atrial fibrillation, chronic stable angina, B12 deficiency. AXIS IV: Severe. AXIS V: Global assessment of functioning is 10. PLAN: At this time, the patient is admitted to the hospital secondary to reports of suicidal ideations along with some aggressive behavior. At this point, I see no evidence of aggressive behaviors, just a woman who is clearly in distress, probably in pain and cannot express it. Based on my examination, I cannot believe that she actually put a sentence together that indicated she wanted to hurt herself. I will try to address her acute medical needs in conjunction with our seal skinner and then hopefully some reasonable amount of communication can be established. At this point, though I am viewing the patient is having end-stage medical problems along with end-stage dementia and it would appear to me that it is reasonable to provide her with comfort care and hospice. I strongly suspect that the patient may be in pain and that is part of her yelling, I am not entirely sure of this, but I am going to place a fentanyl patch on her and see if that improves this crying out for reasons that are unexplained. More information obviously needs to be gathered, not entirely sure that this is an appropriate psychiatric admission at all, but based on what was reported to us by the [facility] I accepted her, that is not the picture that presents when she is here and I think the first order of business is to relieve whatever is causing her to cry out and to also be in tears. She cannot communicate this to me. She could not communicate it to the nurse last night or the nurse today or Dr. Newby when he evaluated her. I strongly suspect that this patient is appropriate for hospice and making her comfortable would be the most reasonable thing to do at this point. TRANSINT:[id number] Voice Confirmation ID: [id number] DOCUMENT ID: [id number] LETICIA OLIVA MD at 1532 CC: [id number] DICTATION DATE: 02/14/19 1136 SOLICITING FREIGHT AGENT: 02/14/19 1230 ADM IN [place] [address] [place] [address]
--- NOTE | 2019-02-15 15:45 | NUR ---
B\P 195/45 APPRESOLINE GIVEN.
--- NOTE | 2019-02-15 17:45 | NUR ---
ATIIVAN 0.5 MG PO GIVEN FOR YELLING LOUDLY CONSTANTLY.
--- NOTE | 2019-02-15 23:56 | NUR ---
PATIENT IS CONTINUALLY YELLING. NOT ABLE TO BE CONSOLED, PATIENT IS NOT SPEAKING. PATIENT IS TOTAL CARE. MEDS CRUSHED AND GIVEN IN APPLE SAUCE. PRN GIVEN EARLIER THIS SHIFT WITH NO RESULTS. WILL MONITOR
--- NOTE | 2019-02-16 10:11 | NUR ---
Team Treatment Review: Diet: Diabetic Puree Diet PO Intake: 15% per 3 meals Wt: No new wt due to combative behavior (Wt of 180lbs on 12/12) Meds: Selina Pepqued -Will provide Glucerna with meals for increase nutrient intake -Will Monitor Closely -Clincial Dietitian Following
[2019-02-16 10:44] VITALS: BP 167/74
--- NOTE | 2019-02-16 11:21 | PN ---
PATIENT:ADRIANA MARCELINO MEDICAL RECORD: [id number] LOCATION:[facility] ADMISSION DATE: 02/13/19 PROGRESS NOTE DATE OF SERVICE: 02/15/2019 SUBJECTIVE: The patient's case was discussed with staff. She has no new complaint. OBJECTIVE: The patient is significantly better today. She is actually able to answer some questions in a way that is reasonably coherent and she has been yelling a lot less. She is not eating adequately and I am going to start her on some Megace. She obviously has a urinary tract infection and I suspect she may improve even more with treatment of that. I do not think that this is going to alter the recommendation about comfort care or even hospice measures, but her condition appears to be much less critical than it was yesterday and I would upgrade her status a little. ASSESSMENT: No change in diagnoses. PLAN: As above. The patient is going to be maintained on current medicines. I am going to start her on an appetite stimulant and I am going to discontinue Haldol as I think she may have had an adverse effect at least in part to it. TRANSINT:[id number] Voice Confirmation ID: [id number] DOCUMENT ID: [id number] LETICIA OLIVA MD at 1121 CC: [id number] DICTATION DATE: 02/15/19 1632 DIGITAL SALES DIRECTOR: 02/15/19 2110 ADM IN [id number] [place] [address]
--- NOTE | 2019-02-16 12:06 | NUR ---
PATIENT IS IN BED AT THIS TIME. YELLING OUT AND UNABLE TO BE CONSOLED. PATIENT ROUTINE MEDICATIONS WERE DISCONTINUED PER DR. CARBAJAL THIS SHIFT. MORPHINE CONC 5 MG SL Q2 PRN WAS ADMINISTERED AT 1054 PER ORDER. PATIENT PERICARE, BED CHANGE AND Q 2 HOUR TURN HAVE BEEN COMPLETED PER STAFF. PT TOLERATED WELL. NURSE ATTEMPTED TO FEED PATIENT ORANGE SHERBET. PT UNABLE TO SWALLOW SMALL BITS OF SHERBET. SWABBED PATIENT MOUTH WITH THICKEN WATER AT THIS TIME. PT TOLERATED WELL. CONTINUES TO YELL OUT AT THIS TIME. PATIENT HAD A CONSULT THIS SHIFT WITH HOSPICE. HOSPICE OUT TO CONSULT. BED ALARM IN PLACE. WILL CONT PLAN OF CARE.
--- NOTE | 2019-02-16 15:27 | NUR ---
PATIENT CONTINUES TO YELL OUT AT THIS TIME. MORPHINE 0.25 ML SL GIVEN PER ORDER.
--- NOTE | 2019-02-16 16:40 | NUR ---
PATIENT IS TOO WEAK TO WEIGH PER WHEELCHAIR SCALE.
--- NOTE | 2019-02-16 18:56 | NUR ---
PATIENT YELLING OUT IN PAIN ALL SHIFT. MORPHINE 0.25 ML SL GIVEN PER PRN ORDER Q 2 HOURS @ 1738. WILL REASSESS Q 1 HOUR FOR SAFETY.
--- NOTE | 2019-02-16 18:58 | NUR ---
MORPHINE NOT EFFECT AT THIS TIME. PATIENT CONTS TO YELL OUT AT THIS TIME.
--- NOTE | 2019-02-16 19:10 | NUR ---
AWAITING TRANSPORT TO INPATIENT HOSPICE FACILITY. WILL NOTIFY ONCOMING SHIFT.
[2019-02-16 19:36] VITALS: BP 103/57
--- NOTE | 2019-02-16 19:53 | NUR ---
PATIENT DISCHARGED TO [facility] PER [facility] TO [facility] INPATIENT. REPORT CALLED TO DEIDRA SANCHEZ .
--- NOTE | 2019-02-17 15:14 | PN ---
PATIENT:ADRIANA MRACELINO MEDICAL RECORD: [id number] LOCATION:[facility] ADMISSION DATE: 02/13/19 PROGRESS NOTE DATE OF SERVICE: 02/16/2019 SUBJECTIVE: The patient's case was discussed with staff. She has no new complaint. OBJECTIVE: The patient is much worse than yesterday. She is not answering any questions. She is very distressed and yelling out in discomfort of an uncertain etiology. I do not know if it is physical or emotional or both, and she cannot communicate to me. I have discussed her situation with Dr. Newby. His opinion is that she is in the final stages of multisystem failure and my opinion is she is in the final stages of a very advanced dementia. We are in agreement that she should be made comfortable and that it would seem appropriate at this point to transfer her to inpatient hospice and a referral is being made to do just that. Her daughter has been contacted and is distressed and upset, but understanding of the situation. Based on this information, the patient will be transitioned out of this hospital and to a palliative care hospice unit today if possible. ASSESSMENT: No change in diagnoses. PLAN: The patient is completely inappropriate for Behavioral Unit. Unfortunately, she is in the final stages of multisystem failure along with dementia and will be placed in a setting where she can be made comfortable. TRANSINT:[id number] Voice Confirmation ID: [id number] DOCUMENT ID: [id number] LETICIA OLIVA MD at 1514 CC: [id number] DICTATION DATE: 02/16/19 1256 CASING MATERIAL WEIGHER: 02/16/19 1323 DIS IN 02/16/19 [facility] [address] [place] [address]
== END 2019-02-16 19:56 | disposition home health service (06) | DRG 884 ==
LOC: D.PSYCH 15:34
PROVIDERS: ADMIT Psychiatry & Neurology Psychiatry; ATTEND Psychiatry & Neurology Psychiatry
DX: F03.91 Unspecified dementia, unspecified severity, with behavioral disturbance (principal); N18.4 Chronic kidney disease, stage 4 (severe); N17.9 Acute kidney failure, unspecified; N39.0 Urinary tract infection, site not specified; I12.9 Hypertensive chronic kidney disease with stage 1 through stage 4 chronic kidney disease, or unspecified chronic kidney disease; E11.22 Type 2 diabetes mellitus with diabetic chronic kidney disease; K21.9 Gastro-esophageal reflux disease without esophagitis; E03.9 Hypothyroidism, unspecified; E78.5 Hyperlipidemia, unspecified; Z95.1 Presence of aortocoronary bypass graft; D50.9 Iron deficiency anemia, unspecified; F32.9 Major depressive disorder, single episode, unspecified; I25.10 Atherosclerotic heart disease of native coronary artery without angina pectoris; M75.102 Unspecified rotator cuff tear or rupture of left shoulder, not specified as traumatic; I48.0 Paroxysmal atrial fibrillation; D51.9 Vitamin B12 deficiency anemia, unspecified; I20.8 Other forms of angina pectoris